=== PATIENT | male | born 1945 | race American Indian/Alaskan Native ===

== ENCOUNTER 2018-12-11 11:41 | Inpatient (IN) | payer MEDICARE, OTHER ==
--- NOTE | 2018-12-11 12:29 | C.PDOC ---
History Of Present Illness The patient is a 73 year old male with history of chronic bilateral leg ulcers and ESRD (on dialysis). Patient underwent outpatient evaluation by Dr. Langford, who found that patient's wound are not healing. Patient was sent to the ED for further evaluation. Patient denies fever, chills, extremity numbness/weakness or recent trauma/injury to the area. Time Seen by Provider: 12/11/18 11:59 Chief Complaint (Nursing): Lower Extremity Problem/Injury History Per: Patient History/Exam Limitations: no limitations Onset/Duration Of Symptoms: Days Current Symptoms Are (Timing): Still Present Additional History Per: Patient Past Medical History Reviewed: Historical Data, Nursing Documentation, Vital Signs Vital Signs: Last Vital Signs Temp 97.7 F 12/11/18 11:53 Pulse 81 12/11/18 11:53 Resp 18 12/11/18 11:53 BP 133/90 12/11/18 11:53 Pulse Ox 96 12/11/18 11:53 - Medical History PMH: CHF, HTN, End Stage Renal Disease, Chronic Kidney Disease Surgical History: No Surg Hx Family History: States: Unknown Family Hx - Social History Hx Alcohol Use: No Hx Substance Use: No - Immunization History Hx Tetanus Toxoid Vaccination: No Hx Influenza Vaccination: Yes Hx Pneumococcal Vaccination: Yes Review Of Systems Constitutional: Negative for: Fever, Chills Skin: Positive for: Other (chronic leg wounds, non-healing ) Physical Exam - Physical Exam Appears: Non-toxic, No Acute Distress Skin: Warm, Dry, Other (areas of discoloration with multiple open ulcers to bilateral lower extremities. no discharge ) Head: Atraumatic, Normacephalic Eye(s): bilateral: Normal Inspection Neck: Supple Chest: Symmetrical, No Deformity, No Tenderness Cardiovascular: Rhythm Regular, No Murmur Respiratory: Normal Breath Sounds, No Rales, No Rhonchi, No Wheezing Extremity: Normal ROM, No Tenderness, No Deformity, Other (poor circulation to bilateral lower extremities ) Pulses: Left Dorsalis Pedis: Decreased, Right Dorsalis Pedis: Decreased Neurological/Psych: Oriented x3, Normal Speech, Normal Cognition ED Course And Treatment - Laboratory Results Result Diagrams: 12/11/18 12:45 12/11/18 12:19 O2 Sat by Pulse Oximetry: 96 (on RA ) Pulse Ox Interpretation: Normal Progress Note: Bloodwork ordered and reviewed. Case discussed with Dr. Langford, who requests to order an angiogram. CT Angiography ordered, and was reviewed by Dr. Langford. He requests for the patient to be admitted. Case discussed with Dr. Staton, who accepts the patient to his service. Disposition - Disposition Disposition: HOSPITALIZED Disposition Time: 15:52 Condition: FAIR - Clinical Impression Clinical Impression: Wound of lower extremity, ESRD (end stage renal disease) on dialysis - PA / DIRECTOR OF ASSESSMENT / Resident Statement MD/DO has reviewed & agrees with the documentation as recorded. - Scribe Statement The provider has reviewed the documentation as recorded by the Scribe (Ruby Palafox) All medical record entries made by the Scribe were at my direction and personally dictated by me. I have reviewed the chart and agree that the record accurately reflects my personal performance of the history, physical exam, medical decision making, and the department course for this patient. I have also personally directed, reviewed, and agree with the discharge instructions and disposition. Decision To Admit - Pt Status Changed To: Hospital Disposition Of: Observation - . Bed Request Type: Regular Admitting Physician: Luis Manuel Staton Patient Diagnosis: Wound of lower extremity, ESRD (end stage renal disease) on dialysis
[2018-12-11 13:01] LABS: INR 1.9; PROTHROMBIN TIME 20.5 SECONDS (9.7-12.2)
[2018-12-11 13:12] LABS: BASO # 0.1 K/uL (0.0-0.2); BASO % 1.5 % (0.0-2.0); EOS # 0.2 K/uL (0.0-0.7); HEMOGLOBIN 12.3 g/dL (12.0-18.0); LYMPH # 0.4 K/uL (1.0-4.3); LYMPH % 4.7 % (20.0-40.0); MEAN CELL VOLUME 90.3 fL (80.0-94.0); MEAN CORPUSCULAR HEMOGLOBIN 26.7 pg (27.0-31.0); MEAN CORPUSCULAR HGB CONC 29.6 g/dL (33.0-37.0); MEAN PLATELET VOLUME 7.8 fL (7.2-11.7); MONO # 0.5 K/uL (0.0-0.8); NEUT # 7.6 K/uL (1.8-7.0); NEUT % 85.8 % (50.0-75.0); NRBC % 0.1 % (0.0-2.0); PLATELET COUNT 397 K/uL (130-400); RBC 4.62 Mil/uL (4.40-5.90); WHITE BLOOD COUNT 8.9 K/uL (4.8-10.8)
[2018-12-11 13:17] LABS: BASOPHIL 1 % (0-2); EOSINOPHIL 5 % (0-4); LYMPHOCYTE 6 % (20-40); MONOCYTE 8 % (0-10); NEUTROPHIL 80 % (50-75); PLATELET ESTIMATE NORMAL (NORMAL); TOTAL CELLS COUNTED 100
[2018-12-11 13:18] LABS: ANISOCYTOSIS SLIGHT; POIKILOCYTOSIS SLIGHT
[2018-12-11 13:38] LABS: CALCIUM 8.9 mg/dl (8.6-10.4)
[2018-12-11 13:46] LABS: ALB/GLOB RATIO 1.5 (1.0-2.1); ALBUMIN 4.7 g/dL (3.5-5.0)
[2018-12-11] MEDS ORDERED: Iodixanol 320 mg/ml 150 ml Bottle IV ONE (14:31)
--- NOTE | 2018-12-11 16:31 | CP.PCM.CON ---
History of Present Illness - History of Present Illness History of Present Illness: pt is seen and examined, full consult is dictated #[id number] 1. ESRD 2. cardiomyopathy 3. htn 4.dm 5.s/p A fib 6.cad s/p stent and defibrillator 7. b/l leg ulcers, left is almost closed, rt leg 2 ulcers with unhealthy granulation tissue s/p angiogram for hd today for possible oR tomorrow c/w po4 binders restrict fluids to 1 lit/day f/u with suegery Past Patient History - Past Social History Smoking Status: Never Smoked - CARDIAC Hx Congestive Heart Failure: Yes Hx Hypertension: Yes - RENAL Hx Chronic Kidney Disease: Yes - PSYCHIATRIC Hx Substance Use: No - SURGICAL HISTORY Hx Surgeries: Yes Other/Comment: LEFT ARM AV SHUNT. ICD INSERTED Meds Allergies/Adverse Reactions: Allergies Allergy/AdvReac Type Severity Reaction Status Date / Time No Known Allergies Allergy Verified 12/11/18 11:46 - Medications Medications: Current Medications Paricalcitol (Zemplar) 2 mcg IV TTS YESI Results - Vital Signs Recent Vital Signs: Last Vital Signs Temp 98.6 F 12/11/18 13:52 Pulse 79 12/11/18 13:52 Resp 18 12/11/18 11:53 BP 121/70 12/11/18 13:52 Pulse Ox 96 12/11/18 15:54 - Labs Result Diagrams: 12/11/18 12:45 12/11/18 12:19 Labs: Laboratory Results - last 24 hr 12/11/18 12/11/18 12/11/18 12:19 12:45 12:54 WBC 8.9 RBC 4.62 Hgb 12.3 Hct 41.7 MCV 90.3 MCH 26.7 L MCHC 29.6 L RDW 24.0 H Plt Count 397 MPV 7.8 Neut % (Auto) 85.8 H Lymph % (Auto) 4.7 L [place] % (Auto) 6.0 Eos % (Auto) 2.0 Baso % (Auto) 1.5 Neut # (Auto) 7.6 H Lymph # (Auto) 0.4 L [place] # (Auto) 0.5 Eos # (Auto) 0.2 Baso # (Auto) 0.1 Neutrophils % (Manual) 80 H Lymphocytes % (Manual) 6 L Monocytes % (Manual) 8 Eosinophils % (Manual) 5 H Basophils % (Manual) 1 Platelet Estimate Normal Poikilocytosis (manual Slight Anisocytosis (manual) Slight PT 20.5 H INR 1.9 APTT 41 H Sodium 135 Potassium 5.7 H Chloride 93 L Carbon Dioxide 29 Anion Gap 18 BUN 51 H Creatinine 5.0 H Est GFR ( Amer) 14 Est GFR (Non-Af Amer) 11 Random Glucose 158 H Calcium 8.9 Total Bilirubin 1.4 H AST 63 H ALT 11 L Alkaline Phosphatase 116 Total Protein 7.8 Albumin 4.7 Globulin 3.1 Albumin/Globulin Ratio 1.5
[2018-12-11] MEDS: Paricalcitol 2 mcg/ml Inj IV SCH (18:48)
--- NOTE | 2018-12-11 19:20 | CP.PCM.HP ---
History of Present Illness - History of Present Illness History of Present Illness: Chief complaint: Bilateral leg pain, and chronic ulcers. HPI: 73-year-old male with a history of end-stage renal disease, on dialysis hypertension, congestive heart failure, peripheral vascular disease, ischemic heart disease was sent from the rehabilitation center with the symptoms of worsening leg pain, discoloration of the great toes bilaterally. Patient is having increasing pain recently. Chronic ulcers and also noted. Patient needed further management and treatment at this time. Patient was seen by surgeon as an outpatient, and as the wound is not healing with the conservative treatment patient needed hospitalization and further management Past medical history: Chronic renal failure, end-stage renal disease on dialysis hypertension, congestive heart failure Surgical history: Left arm AV fistula Family history significant for hypertension and heart disease Patient is a nonalcoholic and non-smoker now. Vaccination is updated Review of system: Patient is currently receiving the dialysis. Patient has swelling over the left upper extremity. AV fistula in the left arm noted. Patient has no chest pain he denies any nausea he denies any vomiting he denies abdominal pain Patient has a pain bilaterally in the legs. Also patient has a discoloration of the great toes bilaterally On examination: Vital signs reviewed Stable. Saturation 96%. Chest good air entry bilaterally, regular sounds noted, nontender abdomen. Extremities patient has a poor peripheral pulses noted. Discoloration of the skin changes dark discoloration noted in the tip of the great toe bilaterally. Labs reviewed BUN 51 creatinine 5.0, bilirubin is 1.4 mild elevation of the AST noted INR is 1.9 WBC 8.9 Hemoglobin 12.3 Platelet is 397 patient had abdominal angiogram results are pending. EKG also pending at this time CT of the abdominal angiogram is currently pending with results. Assessment and recommendation: Patient is a 73-year-old male with history of hypertension, atherosclerotic aortic disease, renal insufficiency, end-stage renal disease on dialysis, congestive heart failure, status post pacemaker. Patient now admitted with a nonhealing leg ulcers, associated with severe vascular claudication with the severe pain with impending gangrene. We will get a vascular surgical evaluation. CT angiogram report. Possible angiographic intervention, or PTCA possibly. Evaluation by the surgeon and will follow the patient. DVT GI prophylaxis currently patient is on anticoagulation. Cardiology evaluation may be needed and will follow the patient Present on Admission - Present on Admission Any Indicators Present on Admission: No History of DVT/PE: No History of Uncontrolled Diabetes: No Urinary Catheter: No Decubitus Ulcer Present: No Past Patient History - Past Social History Smoking Status: Never Smoked - CARDIAC Hx Congestive Heart Failure: Yes Hx Hypertension: Yes - RENAL Hx Chronic Kidney Disease: Yes - PSYCHIATRIC Hx Substance Use: No - SURGICAL HISTORY Hx Surgeries: Yes Other/Comment: LEFT ARM AV SHUNT. ICD INSERTED Meds Allergies/Adverse Reactions: Allergies Allergy/AdvReac Type Severity Reaction Status Date / Time No Known Allergies Allergy Verified 12/11/18 11:46 Results - Vital Signs Recent Vital Signs: Last Vital Signs Temp 97.4 F L 12/11/18 17:30 Pulse 87 12/11/18 18:31 Resp 17 12/11/18 18:31 BP 122/62 12/11/18 18:45 Pulse Ox 96 12/11/18 18:10 - Labs Result Diagrams: 12/11/18 12:45 12/11/18 12:19 Labs: Laboratory Results - last 24 hr 12/11/18 12/11/18 12/11/18 12:19 12:45 12:54 WBC 8.9 RBC 4.62 Hgb 12.3 Hct 41.7 MCV 90.3 MCH 26.7 L MCHC 29.6 L RDW 24.0 H Plt Count 397 MPV 7.8 Neut % (Auto) 85.8 H Lymph % (Auto) 4.7 L [place] % (Auto) 6.0 Eos % (Auto) 2.0 Baso % (Auto) 1.5 Neut # (Auto) 7.6 H Lymph # (Auto) 0.4 L [place] # (Auto) 0.5 Eos # (Auto) 0.2 Baso # (Auto) 0.1 Neutrophils % (Manual) 80 H Lymphocytes % (Manual) 6 L Monocytes % (Manual) 8 Eosinophils % (Manual) 5 H Basophils % (Manual) 1 Platelet Estimate Normal Poikilocytosis (manual Slight Anisocytosis (manual) Slight PT 20.5 H INR 1.9 APTT 41 H Sodium 135 Potassium 5.7 H Chloride 93 L Carbon Dioxide 29 Anion Gap 18 BUN 51 H Creatinine 5.0 H Est GFR ( Amer) 14 Est GFR (Non-Af Amer) 11 Random Glucose 158 H Calcium 8.9 Total Bilirubin 1.4 H AST 63 H ALT 11 L Alkaline Phosphatase 116 Total Protein 7.8 Albumin 4.7 Globulin 3.1 Albumin/Globulin Ratio 1.5
--- NOTE | 2018-12-11 21:54 | CP.PCM.CON ---
History of Present Illness - History of Present Illness History of Present Illness: Vascular Surgery Dr. Langford 73 y/o M w/ PMHx of ESRD on HD, HTN, CHF, PVD, CAD was BIBA from rehab center for worsening leg pain. Pt has B/L LE chronic wounds that failed outpaitnet therapy. Pt was directed to the ED for admission and more aggressive therapy. Currently, pt denies LE pain, though does state that it's intermittent. Pt also denies F/C, CP, SOB, N/V, D/C. PMHx: see above Meds: reviewed in chart NKDA PSHx: L AVF SHx: former tobacco, denies EtOH, drug use FHx: noncontributory Review of Systems - Review of Systems All systems: reviewed and no additional remarkable complaints except (see HPI) Past Patient History - Past Social History Smoking Status: Never Smoked - CARDIAC Hx Congestive Heart Failure: Yes Hx Hypertension: Yes - RENAL Hx Chronic Kidney Disease: Yes - PSYCHIATRIC Hx Substance Use: No - SURGICAL HISTORY Hx Surgeries: Yes Other/Comment: LEFT ARM AV SHUNT. ICD INSERTED Meds Allergies/Adverse Reactions: Allergies Allergy/AdvReac Type Severity Reaction Status Date / Time No Known Allergies Allergy Verified 12/11/18 11:46 - Medications Medications: Current Medications Acetaminophen (Tylenol 325mg Tab) 325 mg PO Q6 PRN PRN Reason: Pain, moderate (4-7) Apixaban (Eliquis) 5 mg PO BID YESI Calcium Acetate (Phoslo) 667 mg PO TID YESI Carvedilol (Coreg) 3.125 mg PO PRN PRN PRN Reason: see below Cinacalcet (Sensipar) 60 mg PO DAILY YESI Clopidogrel Bisulfate (Plavix) 75 mg PO DAILY YESI Finasteride (Proscar) 5 mg PO DAILY YESI Gabapentin (Neurontin) 300 mg PO TID YESI Lactulose (Enulose) 20 gm PO DAILY YESI Paricalcitol (Zemplar) 2 mcg IV TTS YESI Last Admin: 12/11/18 18:48 Dose: 2 mcg Tramadol HCl (Ultram) 50 mg PO Q8H YESI Last Admin: 12/11/18 20:13 Dose: Not Given Vitamin B Complex/Vit C/Folic Acid (Nephro-Vivian) 1 tab PO DAILY [facility] Physical Exam - Constitutional Appears: Non-toxic, Toxic - Head Exam Head Exam: NORMAL INSPECTION - Eye Exam Eye Exam: Normal appearance - ENT Exam ENT Exam: Mucous Membranes Moist - Respiratory Exam Respiratory Exam: NORMAL BREATHING PATTERN. absent: Accessory Muscle Use, Respiratory Distress - Cardiovascular Exam Cardiovascular Exam: REGULAR RHYTHM. absent: Bradycardia, Tachycardia - GI/Abdominal Exam GI & Abdominal Exam: Soft. absent: Distended, Tenderness - Extremities Exam Additional comments: dark discoloration to B/L [place] chronic R heel wound pitting edema B/L LE to mid-linares - Neurological Exam Neurological exam: Alert - Psychiatric Exam Psychiatric exam: Normal Affect, Normal Mood - Skin Skin Exam: Dry, Warm Results - Vital Signs Recent Vital Signs: Last Vital Signs Temp 97.8 F 12/11/18 20:30 Pulse 79 12/11/18 20:30 Resp 19 12/11/18 20:30 BP 140/74 12/11/18 20:30 Pulse Ox 97 12/11/18 20:30 - Labs Result Diagrams: 12/11/18 12:45 12/11/18 12:19 Labs: Laboratory Results - last 24 hr 12/11/18 12/11/18 12/11/18 12:19 12:45 12:54 WBC 8.9 RBC 4.62 Hgb 12.3 Hct 41.7 MCV 90.3 MCH 26.7 L MCHC 29.6 L RDW 24.0 H Plt Count 397 MPV 7.8 Neut % (Auto) 85.8 H Lymph % (Auto) 4.7 L [place] % (Auto) 6.0 Eos % (Auto) 2.0 Baso % (Auto) 1.5 Neut # (Auto) 7.6 H Lymph # (Auto) 0.4 L [place] # (Auto) 0.5 Eos # (Auto) 0.2 Baso # (Auto) 0.1 Neutrophils % (Manual) 80 H Lymphocytes % (Manual) 6 L Monocytes % (Manual) 8 Eosinophils % (Manual) 5 H Basophils % (Manual) 1 Platelet Estimate Normal Poikilocytosis (manual Slight Anisocytosis (manual) Slight PT 20.5 H INR 1.9 APTT 41 H Sodium 135 Potassium 5.7 H Chloride 93 L Carbon Dioxide 29 Anion Gap 18 BUN 51 H Creatinine 5.0 H Est GFR ( Amer) 14 Est GFR (Non-Af Amer) 11 POC Glucose (mg/dL) Random Glucose 158 H Calcium 8.9 Total Bilirubin 1.4 H AST 63 H ALT 11 L Alkaline Phosphatase 116 Total Protein 7.8 Albumin 4.7 Globulin 3.1 Albumin/Globulin Ratio 1.5 12/11/18 21:38 WBC RBC Hgb Hct MCV MCH MCHC RDW Plt Count MPV Neut % (Auto) Lymph % (Auto) [place] % (Auto) Eos % (Auto) Baso % (Auto) Neut # (Auto) Lymph # (Auto) [place] # (Auto) Eos # (Auto) Baso # (Auto) Neutrophils % (Manual) Lymphocytes % (Manual) Monocytes % (Manual) Eosinophils % (Manual) Basophils % (Manual) Platelet Estimate Poikilocytosis (manual Anisocytosis (manual) PT INR APTT Sodium Potassium Chloride Carbon Dioxide Anion Gap BUN Creatinine Est GFR ( Amer) Est GFR (Non-Af Amer) POC Glucose (mg/dL) 189 H Random Glucose Calcium Total Bilirubin AST ALT Alkaline Phosphatase Total Protein Albumin Globulin Albumin/Globulin Ratio - Imaging and Cardiology CTA scan - abdomen Status: Image reviewed by me Assessment & Plan - Assessment and Plan (Free Text) Assessment: 73 y/o M w/ PVD and chronic B/L foot wounds Plan: - MUST HAVE HD TONIGHT 12/11 - optimize medically - plan for OR tomorrow 12/12 for wound debridement Pt discussed w/ Dr. Primitivo Boland DO PGY3
--- NOTE | 2018-12-12 04:35 | CON ---
DATE: 12/11/2018 RENAL CONSULTATION LOCATION: The patient is located in room 356, bed A. REQUESTED BY: Luis Manuel Staton MD REASON FOR CONSULTATION: End-stage renal disease, continuation of hemodialysis, status post abdominal angiography, and for possible debridement of the right leg ulcer in a.m. and for possible hemodialysis today. HISTORY OF PRESENT ILLNESS: Mr. Pandey is a 73-year-old elderly very pleasant male with a past medical history significant for longstanding hypertension, diabetes, secondary hyperparathyroidism, end-stage renal disease, coronary artery disease, status post stent placement, status post AICD and defibrillator placement, cardiomyopathy, AFib, was on anticoagulation who [facility] for [facility] of nonhealing left leg ulcer, just above the ankle. The patient denies any chest pain or palpitation. Denies any fever or cough. No abdominal pain. The patient was recently admitted to [facility] and discharged from the [facility] to subacute rehab. The patient was dialyzed yesterday in [facility]. PAST MEDICAL HISTORY: Significant for longstanding hypertension, diabetes, secondary hyperparathyroidism, end-stage renal disease, cardiomyopathy, AFib, and also status post AICD defibrillator placement, CAD, status post stent placement. PAST SURGICAL HISTORY Status post ligation of the left upper extremity AV fistula, status post new left upper extremity AV fistula placement about 6 months ago. ALLERGIES: NO KNOWN DRUG ALLERGIES. SOCIAL HISTORY: No smoking. No alcohol. No drugs. PERSONAL HISTORY: He is , and he has a very supportive family. His son of end-stage renal disease and complications. REVIEW OF SYSTEMS: Significant for nonhealing right leg ulcers, just above the ankle, and also swelling of the legs. All other review of systems are reviewed and are negative. PHYSICAL EXAMINATION: VITAL SIGNS: Blood pressure 136/76, pulse 79, respirations 19, temperature 97.8, saturation about 98% to 100%. Height 5 feet 9 inches and weight is 187 pounds. His post dialysis actual weight is 136.8. GENERAL: Mr. Pandey is a 73-year-old elderly male, moderately built, moderately nourished, not in distress. HEENT: Pupils normal and reactive to light and accommodation. Conjunctivae pink. Sclerae anicteric. Tongue is moist. Trachea is midline. LUNGS: Symmetric on both sides. Bilateral breath sounds present. Occasional basal crackles present. CARDIOVASCULAR SYSTEM: [place] at the fifth intercostal space, midclavicular line. S1, S2 audible. No murmur or gallop. ABDOMEN: Normal in appearance. Soft, tympanitic. No guarding. No rigidity. No hepatosplenomegaly. CENTRAL NERVOUS SYSTEM: The patient is alert, awake, and oriented x3. Cranial nerves II through XII grossly intact. Sensory system is grossly within the normal limits. Motor system, the patient is able to move all extremities but unable to ambulate due to weakness in both lower extremities and dyspnea on exertion, and nonhealing right leg ulcers. EXTREMITIES: No cyanosis, no clubbing. The patient has 1 to 2+ edema in both lower extremities and also nonhealing two ulcers above the ankle on the Achilles tendon. Ulcers on the left leg was healing. No active drainage. LABORATORY DATA: Include as follows: As of 12/11/2018, WBC 8.9, hemoglobin 12.3, hematocrit 41.7, platelets 397. Sodium 135, potassium 5.7, chloride 93, CO2 of 29, BUN 51, creatinine 5, glucose 158, calcium 8.9. Total bili 1.4. AST 63, ALT 11, alkaline phosphatase 116, total protein 7.8, albumin is 4.7, PT is 20.5, INR 1.9, PTT 41. IMPRESSION AND PLAN: In summary, Mr. Pandey is a 73-year-old elderly male with a history of longstanding hypertension, diabetes, end-stage renal disease, secondary hyperparathyroidism, coronary artery disease, hyperlipidemia, atrial fibrillation, cardiomyopathy, status post stent placement, status post automatic implantable cardioverter-defibrillator placement who was recently admitted to [facility], subsequently transferred to subacute rehab for nonhealing right leg ulcer. Now the patient was [facility] for further evaluation. The patient underwent abdominal angiography this afternoon and requesting hemodialysis today for possible surgery tomorrow and debridement. 1. End-stage renal disease. Continue hemodialysis three times a week. 2. Cardiomyopathy. 3. Fluid overload. 4. Mild hyperkalemia. The specimen was slightly hemolyzed. 5. Second hyperparathyroidism. 6. Diabetes. Continue his current medications Coreg 3.125 mg p.r.n. and Eliquis on hold, lactulose 20 g p.o. daily, Nephro-Vivian 1 tablet daily, gabapentin 300 mg p.o. t.i.d., PhosLo 667 mg p.o. t.i.d., Plavix 75 mg daily, Proscar 5 mg p.o. daily, Sensipar 60 mg p.o. daily, Tylenol and tramadol 50 mg p.o. every 8 hours, Zemplar 2 mcg. We will change PhosLo to Renvela 800 mg two tablets three times a day. The patient was scheduled for hemodialysis this evening and UF goal is 2 to 3 liters, and repeat labs in a.m. Thank you for allowing me to participate in your patient's care and restrict fluids to 1 liter per day and also low sodium, low potassium diet. Gomez Vu MD
[2018-12-12 07:41] LABS: CALCIUM 8.6 mg/dl (8.6-10.4); MEAN CELL VOLUME 88.7 fL (80.0-94.0); MEAN CORPUSCULAR HEMOGLOBIN 27.4 pg (27.0-31.0); MEAN CORPUSCULAR HGB CONC 30.9 g/dL (33.0-37.0); MEAN PLATELET VOLUME 7.5 fL (7.2-11.7); RBC 3.71 Mil/uL (4.40-5.90); RED CELL DISTRIBUTION WIDTH 23.9 % (11.5-14.5); WHITE BLOOD COUNT 6.2 K/uL (4.8-10.8)
[2018-12-12 07:51] LABS: HEMOGLOBIN 10.2 g/dL (12.0-18.0)
--- NOTE | 2018-12-12 08:44 | CT ---
Date of service: 12/11/2018 PROCEDURE: CT Angiography Abdomen, Pelvis and Lower Extremity with Contrast HISTORY: b/l LE ulcers, on HD COMPARISON: None. TECHNIQUE: Technique: CT angiography of the abdomen, pelvis and bilateral lower extremities performed in the arterial phase of enhancement. Coronal and sagittal reformats, and well as rotating MIP images of the vessels generated at the workstation. Intravenous contrast dose: Radiation dose: Total exam DLP = 1825.72 mGy-cm. This CT exam was performed using one or more of the following dose reduction techniques: Automated exposure control, adjustment of the mA and/or kV according to patient size, and/or use of iterative reconstruction technique. FINDINGS: CT ANGIOGRAPHY: No aortic atherosclerotic calcification or mural plaque present. ABDOMINAL AORTA:: No aneurysm. Extensive atherosclerotic change. MAJOR AORTIC BRANCHES: Celiac [place]: Unremarkable. Superior mesenteric artery: Unremarkable. Inferior mesenteric artery: Unremarkable. Renal arteries: Unremarkable. PELVIC ARTERIES: Right Common Iliac: Unremarkable. Right External Iliac: Unremarkable. Right Internal Iliac: Unremarkable. Left Common Iliac: Unremarkable. Left External Iliac: Unremarkable. Left Internal Iliac: Unremarkable. RIGHT LOWER EXTREMITY ARTERIES: Right Common Femoral: Unremarkable. Right Superficial Femoral: Unremarkable. Right Profunda Femoris: Unremarkable. Right Popliteal:Unremarkable. Right Anterior Tibial: Unremarkable. Right Tibioperoneal Trunk: Unremarkable. Right Posterior Tibial: Unremarkable. Right Peroneal: Unremarkable. Right dorsalis pedis : Unremarkable. LEFT LOWER EXTREMITY ARTERIES: Left Common Femoral: Unremarkable. Left Superficial Femoral: Unremarkable. Left Profunda Femoris: Unremarkable. Left Popliteal: Unremarkable. Left Anterior Tibial: Unremarkable. Left Tibioperoneal Trunk: Unremarkable. Left Posterior Tibial: Unremarkable. Left Peronea: Unremarkable. Left Dorsalis pedis: Unremarkable. Bilateral subcutaneous interstitial edema in the calf regions. 2 centimeter subcutaneous ulceration with abscess formation in the posterior medial right foot superior to the calcaneus. NON-ANGIOGRAPHIC ASPECT OF THE EXAM: LOWER THORAX: Cardiomegaly. Bilateral interstitial changes. LIVER: Unremarkable. No gross lesion or ductal dilatation. GALLBLADDER AND BILE DUCTS: Unremarkable. PANCREAS: Unremarkable. No gross lesion or ductal dilatation. SPLEEN: Unremarkable. ADRENALS: Bilateral adrenal nodule; correlate with gradient echo MRI to confirm these as adenomas. KIDNEYS AND URETERS: Severe multicystic kidney disease. STOMACH AND BOWEL: Unremarkable. No obstruction. No gross mural thickening. APPENDIX: Normal appendix. PERITONEUM: Unremarkable. No free fluid. No free air. LYMPH NODES: Unremarkable. No enlarged lymph nodes. BLADDER: Unremarkable. REPRODUCTIVE: Unremarkable. BONES: No acute fracture. OTHER FINDINGS: None. IMPRESSION: Bilateral subcutaneous interstitial edema in the calf regions. 2 centimeter subcutaneous ulceration with abscess formation in the posterior medial right foot superior to the calcaneus. No significant stenosis. Extensive atherosclerotic disease. No aortic aneurysm or dissection.
[2018-12-12] MEDS: Multivitamin Vitamin B Complex (Nephro-Vite) Tab PO SCH (09:32)
[2018-12-12] MEDS ORDERED: Etomidate 20 mg/10ml Inj IV ONE (14:52)
[2018-12-12] MEDS ORDERED: Midazolam 2 MG/2 ML VIAL ONE (14:53)
[2018-12-12] MEDS ORDERED: ceFAZolin 1 gm in NS 1 GM/100 ML BAG IVPB ONE (15:05)
[2018-12-12] MEDS ORDERED: Neostigmine 1:1000 (1 mg/ml) Inj ONE (15:26)
[2018-12-12] MEDS ORDERED: Sodium Chloride 0.9% 500 ML IV ONE (15:35)
--- NOTE | 2018-12-12 15:40 | PCM.SURG1 ---
Surgeon's Initial Post Op Note - Surgeon's Notes Surgeon: MD Primitivo Silver Service Waiter: [id number] Pre-Operative Diagnosis: bilateral lower leg wounds Operative Findings: bilateral lower leg wounds Post-Operative Diagnosis: bilateral lower leg wounds Operation Performed: debridement of bilateral lower leg skin, subcutaneous tissue and muscle Specimen/Specimens Removed: bilateral lower leg wounds Estimated Blood Loss: EBL {In ML}: 25 Date of Surgery/Procedure: 12/12/18 Time of Surgery/Procedure: 15:00
[2018-12-12] MEDS ORDERED: Sodium Chloride 0.9% 1,000 ML IV SCH (15:45)
--- NOTE | 2018-12-12 20:08 | CP.PCM.PN ---
Subjective - Date & Time of Evaluation Date of Evaluation: 12/12/18 Time of Evaluation: 20:08 - Subjective Subjective: pt is seen and examined, follow up consult is dictated #[id number] for hd in am Objective - Vital Signs/Intake and Output Vital Signs (last 24 hours): Temp Pulse Resp BP Pulse Ox 97.8 F 76 11 L 110/52 L 95 12/12/18 16:35 12/12/18 16:35 12/12/18 16:35 12/12/18 16:35 12/12/18 16:35 Intake and Output: 12/12/18 12/13/18 18:59 06:59 Intake Total 200 Balance 200 - Medications Medications: Current Medications Acetaminophen (Tylenol 325mg Tab) 325 mg PO Q6 PRN PRN Reason: Pain, moderate (4-7) Apixaban (Eliquis) 5 mg PO BID [facility] Calcium Acetate (Phoslo) 667 mg PO TID [facility] Last Admin: 12/12/18 17:29 Dose: 667 mg Carvedilol (Coreg) 3.125 mg PO PRN PRN PRN Reason: see below Last Admin: 12/12/18 09:33 Dose: 3.125 mg Cinacalcet (Sensipar) 60 mg PO DAILY [facility] Last Admin: 12/12/18 09:32 Dose: 60 mg Clopidogrel Bisulfate (Plavix) 75 mg PO DAILY [facility] Last Admin: 12/12/18 09:32 Dose: 75 mg Finasteride (Proscar) 5 mg PO DAILY [facility] Last Admin: 12/12/18 09:33 Dose: 5 mg Gabapentin (Neurontin) 300 mg PO TID [facility] Last Admin: 12/12/18 17:29 Dose: 300 mg Sodium Chloride (Sodium Chloride 0.9%) 1,000 mls @ 50 mls/hr IV .Q20H [facility] Last Admin: 12/12/18 17:00 Dose: Not Given Lactulose (Enulose) 20 gm PO DAILY [facility] Last Admin: 12/12/18 09:35 Dose: Not Given Paricalcitol (Zemplar) 2 mcg IV TTS [facility] Last Admin: 12/11/18 18:48 Dose: 2 mcg Tramadol HCl (Ultram) 50 mg PO Q8H [facility] Last Admin: 12/12/18 20:03 Dose: Not Given Vitamin B Complex/Vit C/Folic Acid (Nephro-Vivian) 1 tab PO DAILY [facility] Last Admin: 12/12/18 09:32 Dose: 1 tab - Labs Labs: 12/12/18 07:15 12/12/18 07:15 PT 20.5 SECONDS (9.7-12.2) H 12/11/18 12:54 INR 1.9 12/11/18 12:54 APTT 41 SECONDS (21-34) H 12/11/18 12:54
--- NOTE | 2018-12-13 02:31 | PN ---
DATE: 12/12/2018 FOLLOWUP RENAL CONSULTATION LOCATION: The patient is located in [facility], room 356, bed A. REQUESTED BY: Luis Manuel Staton MD REASON FOR RENAL CONSULTATION: End-stage renal disease, on hemodialysis three times a week with bilateral leg ulcers. HISTORY OF PRESENT ILLNESS: Mr. Pandey is a 73-year-old elderly male with a past medical history significant for longstanding hypertension, diabetes, coronary artery disease, status post stent placement, status post AICD placement, and also end stage renal disease, on hemodialysis three times a week, Saturday, Saturday, and Saturday who was admitted with history of cardiomyopathy, AFib, and bilateral leg ulcer from [facility] to [facility]. From there, patient was sent to the [facility] ER for evaluation of the nonhealing leg ulcers. The patient underwent abdominal angiogram, and patient was scheduled for debridement of both lower extremity leg wounds. The patient underwent debridement of the bilateral lower leg skin and subcutaneous tissue and margin for bilateral lower leg wounds. This afternoon, the patient is awake, the patient is confused. The patient states he is looking for his keys to start his car on the bed. Denies any chest pain or palpitation. Denies any fever or cough. No abdominal pain. No nausea, vomiting, diarrhea. PHYSICAL EXAMINATION: VITAL SIGNS: As follows, blood pressure 110/52, pulse 76, respirations about 15, temperature 97.8, saturation 95%. Height 5 feet 9 inches, weight is about 68.4 kg post dialysis yesterday. GENERAL: Mr. Tyron Pandey is a 73-year-old elderly male, moderately built, moderately nourished, not in acute distress. HEENT: Pupils normal and reactive to light and accommodation. Conjunctivae pink. Sclerae anicteric. Tongue is moist. Trachea is midline. LUNGS: Symmetric on both sides. Bilateral breath sounds present. Occasional basal crackles present. CARDIOVASCULAR SYSTEM: [place] at the fifth intercostal space, midclavicular line. S1, S2 audible. No murmur or gallop. ABDOMEN: Slightly protuberant. Soft, tympanitic. No guarding. No rigidity. No hepatosplenomegaly. CENTRAL NERVOUS SYSTEM: The patient is awake, slightly confused after debridement of the leg ulcers. Sensory system is within normal limits. Motor system, moving all extremities. EXTREMITIES: No cyanosis, no clubbing. 1+ edema in both lower extremities, and the patient has a dressing to the both lower extremity, and both legs are also elevated with pressure support boots. CURRENT MEDICATIONS: Include as follows: Coreg 3.125 mg p.o. p.r.n., Eliquis was on hold, lactulose 20 g p.o. daily, Nephro-Vivian 1 tablet daily, gabapentin 300 mg p.o. t.i.d., calcium acetate 667 mg p.o. t.i.d., Plavix 75 mg daily, Proscar 5 mg p.o. daily, Sensipar 60 mg p.o. daily, Tylenol, tramadol, and Zemplar 2 mcg three times a week. LABORATORY DATA: Include as follows: As of 12/12/2018, WBC 6.2, hemoglobin 10.2, hematocrit is 32.9, platelets 338. Sodium 135, potassium 4.2, chloride 99, CO2 of 30, BUN 33, creatinine 3.9, glucose 120, calcium 8.6, phosphorus 3.6, magnesium 2.4. Right ankle wound cultures pending. CT angiogram of the abdomen, major aortic branches, celiac axis unremarkable. Superior mesenteric artery unremarkable. Inferior mesenteric artery unremarkable. Renal arteries unremarkable. Kidneys and ureters, severe multicystic kidney disease. Impression: Bilateral subcutaneous interstitial edema in the calf regions, 2 cm subcutaneous ulceration with abscess formation in the posterior medial right foot superior to the calcaneus. No significant stenosis. Extensive atherosclerotic disease. No aortic aneurysm or dissection. IMPRESSION AND PLAN: In summary, Mr. Pandey is a 73-year-old elderly male with history of longstanding hypertension, diabetes, atrial fibrillation, coronary artery disease, status post automatic implantable cardioverter-defibrillator and atrial fibrillation, end-stage renal disease with bilateral leg ulcer who was admitted with nonhealing, status post abdominal angiography, consistent with disease without blockage, status post debridement of the both leg ulcers. 1. End-stage renal disease. Continue hemodialysis. We will schedule for hemodialysis in a.m. this week [facility]. He will continue dialysis three times a week, Saturday, Saturday, and Saturday. 2. Hypertension. Blood pressure is stable. 3. Cardiomyopathy. 4. Bilateral leg ulcers. 5. Diabetes. Continue his current medications and also consider to decrease the Neurontin 200 mg three times a day due to end stage renal disease. Gomez Vu MD
--- NOTE | 2018-12-13 08:28 | CP.PCM.PN ---
Subjective - Date & Time of Evaluation Date of Evaluation: 12/13/18 Time of Evaluation: 08:26 - Subjective Subjective: Vascular surgery - Dr. Langford Pt seen and examined. No acute events overnight. Pt denies any pain at the surgical site b/l lower calves. He is tolerating breakfast and as per nurse plan is for return to rehab today after dialysis. No F/C, SOB/CP. Objective - Vital Signs/Intake and Output Vital Signs (last 24 hours): Temp Pulse Resp BP Pulse Ox 97.9 F 89 20 118/66 97 12/13/18 01:35 12/13/18 01:35 12/13/18 01:35 12/13/18 01:35 12/13/18 01:35 - Medications Medications: Current Medications Acetaminophen (Tylenol 325mg Tab) 325 mg PO Q6 PRN PRN Reason: Pain, moderate (4-7) Apixaban (Eliquis) 5 mg PO BID [facility] Calcium Acetate (Phoslo) 667 mg PO TID [facility] Last Admin: 12/12/18 17:29 Dose: 667 mg Carvedilol (Coreg) 3.125 mg PO PRN PRN PRN Reason: see below Last Admin: 12/12/18 09:33 Dose: 3.125 mg Cinacalcet (Sensipar) 60 mg PO DAILY [facility] Last Admin: 12/12/18 09:32 Dose: 60 mg Clopidogrel Bisulfate (Plavix) 75 mg PO DAILY [facility] Last Admin: 12/12/18 09:32 Dose: 75 mg Finasteride (Proscar) 5 mg PO DAILY [facility] Last Admin: 12/12/18 09:33 Dose: 5 mg Gabapentin (Neurontin) 300 mg PO TID [facility] Last Admin: 12/12/18 17:29 Dose: 300 mg Sodium Chloride (Sodium Chloride 0.9%) 1,000 mls @ 50 mls/hr IV .Q20H [facility] Last Admin: 12/12/18 17:00 Dose: Not Given Lactulose (Enulose) 20 gm PO DAILY [facility] Last Admin: 12/12/18 09:35 Dose: Not Given Paricalcitol (Zemplar) 2 mcg IV TTS [facility] Last Admin: 12/11/18 18:48 Dose: 2 mcg Tramadol HCl (Ultram) 50 mg PO Q8H [facility] Last Admin: 12/13/18 03:35 Dose: Not Given Vitamin B Complex/Vit C/Folic Acid (Nephro-Vivian) 1 tab PO DAILY [facility] Last Admin: 12/12/18 09:32 Dose: 1 tab - Labs Labs: 12/12/18 07:15 12/12/18 07:15 PT 20.5 SECONDS (9.7-12.2) H 12/11/18 12:54 INR 1.9 12/11/18 12:54 APTT 41 SECONDS (21-34) H 12/11/18 12:54 - Constitutional Appears: No Acute Distress - Head Exam Head Exam: ATRAUMATIC, NORMAL INSPECTION, NORMOCEPHALIC - Respiratory Exam Respiratory Exam: NORMAL BREATHING PATTERN - Cardiovascular Exam Cardiovascular Exam: REGULAR RHYTHM - Extremities Exam Additional comments: dressings over b/l lower calves c/d/i - Neurological Exam Neurological Exam: Alert, Oriented x3 - Psychiatric Exam Psychiatric exam: Normal Affect - Skin Skin Exam: Dry, Intact, Normal Color Assessment and Plan - Assessment and Plan (Free Text) Assessment: 73 yo M s/p debridement of b/l lower extremity wounds -Doing well post-op -Clear for D/C back to rehab -Dressings may be changed in 5 days, earlier if needed -F/U with Dr. Langford in ~2weeks Dw Dr Langford
[2018-12-13] MEDS: Paricalcitol 2 mcg/ml Inj IV SCH (10:58)
[2018-12-13] MEDS: Multivitamin Vitamin B Complex (Nephro-Vite) Tab PO SCH (13:22)
--- NOTE | 2018-12-13 15:27 | CP.PCM.PN ---
Subjective - Date & Time of Evaluation Date of Evaluation: 12/13/18 Time of Evaluation: 15:26 - Subjective Subjective: pt is seen and examined,f ollow up consult is dictated # s/p hd today, had a uf about 3.4 lit stable tx pt can go back to rehab is cleared by surgery c/w iv abx asper id Objective - Vital Signs/Intake and Output Vital Signs (last 24 hours): Temp Pulse Resp BP Pulse Ox 97.5 F L 91 H 18 148/79 97 12/13/18 13:31 12/13/18 13:31 12/13/18 13:31 12/13/18 13:31 12/13/18 13:31 Intake and Output: 12/13/18 12/13/18 06:59 18:59 Intake Total 350 Balance 350 - Medications Medications: Current Medications Acetaminophen (Tylenol 325mg Tab) 325 mg PO Q6 PRN PRN Reason: Pain, moderate (4-7) Apixaban (Eliquis) 5 mg PO BID [facility] Calcium Acetate (Phoslo) 667 mg PO TID [facility] Last Admin: 12/13/18 13:27 Dose: Not Given Carvedilol (Coreg) 3.125 mg PO PRN PRN PRN Reason: see below Last Admin: 12/12/18 09:33 Dose: 3.125 mg Cinacalcet (Sensipar) 60 mg PO DAILY [facility] Last Admin: 12/13/18 13:30 Dose: 60 mg Clopidogrel Bisulfate (Plavix) 75 mg PO DAILY [facility] Last Admin: 12/13/18 13:23 Dose: 75 mg Finasteride (Proscar) 5 mg PO DAILY [facility] Last Admin: 12/13/18 13:22 Dose: 5 mg Gabapentin (Neurontin) 300 mg PO TID [facility] Last Admin: 12/13/18 13:27 Dose: Not Given Sodium Chloride (Sodium Chloride 0.9%) 1,000 mls @ 50 mls/hr IV .Q20H [facility] Last Admin: 12/12/18 17:00 Dose: Not Given Cefepime HCl 1 gm/ Dextrose 50 mls @ 100 mls/hr IVPB Q24H [facility]; Protocol Lactulose (Enulose) 20 gm PO DAILY [facility] Last Admin: 12/13/18 13:23 Dose: 20 gm Paricalcitol (Zemplar) 2 mcg IV TTS [facility] Last Admin: 03/23/19 10:58 Dose: 2 mcg Tramadol HCl (Ultram) 50 mg PO Q8H [facility] Last Admin: 12/13/18 13:28 Dose: Not Given Vitamin B Complex/Vit C/Folic Acid (Nephro-Vivian) 1 tab PO DAILY [facility] Last Admin: 12/13/18 13:22 Dose: 1 tab - Labs Labs: 12/12/18 07:15 12/12/18 07:15 PT 20.5 SECONDS (9.7-12.2) H 12/11/18 12:54 INR 1.9 12/11/18 12:54 APTT 41 SECONDS (21-34) H 12/11/18 12:54
--- NOTE | 2018-12-13 16:17 | OP ---
PROCEDURE DATE: 12/12/2018 PREOPERATIVE DIAGNOSIS: Necrotic wounds of calf and heel. PROCEDURE CARRIED OUT: Debridement of bilateral calf and heel. SURGEON: Hammad Langford Jr., MD DIRECTOR OF SPA AND GUEST EXPERIENCE: Paco Rai MD ANESTHESIOLOGIST: Altagracia Woodruff CRNA INDICATIONS: The patient is a 73-year-old man, mostly in a wheelchair, on dialysis, palpable pulses in feet, relatively normal CAT scan, presenting with necrotic wounds, particularly on his right heel, Achilles tendon area. OPERATIVE FINDINGS: There was extensive necrosis which was debrided down to healthy tissue on both sides. This was debridement of skin, subcutaneous tissue, muscle on both sides with a total size of less than 100 sq cm. DESCRIPTION OF THE PROCEDURE: The patient was given general anesthesia. He was placed in a left lateral position. The wounds were clearly seen and photographed. The areas were then debrided away using sharp dissection. Pulse irrigation was then used. Cultures were taken really on, and the wounds were dressed. Blood loss was less than 25 mL. OPERATION CARRIED OUT: Debridement of skin, subcutaneous tissue, and muscle, both the right and left calves. Hammad Langford Jr., MD cc:
[2018-12-13] MEDS ORDERED: Cefepime 1 GM in Sodium Chloride 0.9% 50 ML IVPB ONE (17:00)
--- NOTE | 2018-12-13 21:28 | CP.PCM.CON ---
History of Present Illness - History of Present Illness History of Present Illness: INFECTIOUS DISEASE CONSULT; HPI; 73 y/o M w/ PMHx of ESRD on HD, HTN, CHF, PVD, CAD was BIBA from rehab center on 12/11/18 for worsening leg pain.\ Pt has B/L LE chronic wounds that failed outpaitnet therapy for more than a month. Pt was directed to the ED for admission and more aggressive therapy. Currently, pt denies LE pain, though does state that it's intermittent. Pt also denies F/C, CP, SOB, N/V, D/C. Patient status post debridement of the chronic ulcers on lower extremities today as per surgery. INFECTIOUS DISEASE CONSULT REQUESTED BY PMD CULTURES CAME BACK GRAM-NEGATIVE RODS. PT SEEN POST OP. TODAY ON MEDICAL FLOOR. B/L LE IN DRESSINGS. PATIENT DENIES ANY CHEST PAIN, SHORTNESS OF BREATH, COUGH. NO HISTORY OF NAUSEA OR VOMITING. PATIENT ABLE TO MOVE HIS LEGS. PMHx: ESRD ON HD TTS ( [facility] MWF ) LT AVF +VE BRUIT, LT NECK IJV CATHETHER IN PLACE , HAS AICD /PM RT UPPER CHEST, CAD HTN,PVD,CHF Meds: reviewed in chart NKDA PSHx: L AVF SHx: former tobacco, denies EtOH, drug use FHx: noncontributory ALLERGY ; NKA. Review of Systems - Constitutional Constitutional: absent: Chills - EENT Eyes: absent: Change in Vision Nose/Mouth/Throat: absent: Mouth Lesions - Cardiovascular Cardiovascular: absent: Chest Pain, Dyspnea, Pedal Edema - Respiratory Respiratory: absent: Cough - Gastrointestinal Gastrointestinal: absent: Abdominal Pain, Constipation, Diarrhea, Nausea, Vomiting - Genitourinary Additional comments: ON HD TTS S/P HD 12/13/18 - Musculoskeletal Musculoskeletal: As Per HPI - Integumentary Integumentary: Skin Ulcer (B/L LE NEAR ANKLES) - Hematologic/Lymphatic Hematologic: As Per HPI. absent: Easy Bleeding, Easy Bruising, Lymphadenopathy Past Patient History - Past Medical History & Family History Past Medical History?: Yes - Past Social History Smoking Status: Former Smoker - CARDIAC Hx Congestive Heart Failure: Yes Hx Hypertension: Yes - RENAL Hx Chronic Kidney Disease: Yes - MUSCULOSKELETAL/RHEUMATOLOGICAL Hx Falls: No - PSYCHIATRIC Hx Substance Use: No - SURGICAL HISTORY Hx Surgeries: Yes Other/Comment: LEFT ARM AV SHUNT. ICD INSERTED Meds Allergies/Adverse Reactions: Allergies Allergy/AdvReac Type Severity Reaction Status Date / Time No Known Allergies Allergy Verified 12/11/18 11:46 - Medications Medications: Current Medications Acetaminophen (Tylenol 325mg Tab) 325 mg PO Q6 PRN PRN Reason: Pain, moderate (4-7) Apixaban (Eliquis) 5 mg PO BID [facility] Calcium Acetate (Phoslo) 667 mg PO TID [facility] Last Admin: 12/13/18 17:34 Dose: 667 mg Carvedilol (Coreg) 3.125 mg PO PRN PRN PRN Reason: see below Last Admin: 12/12/18 09:33 Dose: 3.125 mg Cinacalcet (Sensipar) 60 mg PO DAILY [facility] Last Admin: 12/13/18 13:30 Dose: 60 mg Clopidogrel Bisulfate (Plavix) 75 mg PO DAILY [facility] Last Admin: 12/13/18 13:23 Dose: 75 mg Finasteride (Proscar) 5 mg PO DAILY [facility] Last Admin: 12/13/18 13:22 Dose: 5 mg Gabapentin (Neurontin) 300 mg PO TID [facility] Last Admin: 12/13/18 17:34 Dose: 300 mg Sodium Chloride (Sodium Chloride 0.9%) 1,000 mls @ 50 mls/hr IV .Q20H [facility] Last Admin: 12/12/18 17:00 Dose: Not Given Cefepime HCl 1 gm/ Dextrose 50 mls @ 100 mls/hr IVPB Q24H [facility]; Protocol Last Admin: 12/13/18 17:34 Dose: 100 mls/hr Lactulose (Enulose) 20 gm PO DAILY [facility] Last Admin: 12/13/18 13:23 Dose: 20 gm Paricalcitol (Zemplar) 2 mcg IV TTS [facility] Last Admin: 12/13/18 10:58 Dose: 2 mcg Tramadol HCl (Ultram) 50 mg PO Q8H [facility] Last Admin: 12/13/18 18:39 Dose: Not Given Vitamin B Complex/Vit C/Folic Acid (Nephro-Vivian) 1 tab PO DAILY [facility] Last Admin: 12/13/18 13:22 Dose: 1 tab Physical Exam - Constitutional Appears: No Acute Distress - Head Exam Head Exam: NORMAL INSPECTION - Eye Exam Eye Exam: EOMI, PERRL - ENT Exam ENT Exam: Normal Oropharynx - Neck Exam Neck exam: Positive for: Normal Inspection - Respiratory Exam Respiratory Exam: Clear to Auscultation Bilateral, NORMAL BREATHING PATTERN - Cardiovascular Exam Cardiovascular Exam: REGULAR RHYTHM, +S1, +S2 - GI/Abdominal Exam GI & Abdominal Exam: Normal Bowel Sounds, Soft. absent: Tenderness - Extremities Exam Extremities exam: Negative for: calf tenderness, pedal edema (B/L LE IN DRESSINGS AND SOFT ELASTIC BANDAGES) - Neurological Exam Neurological exam: Alert, CN II-XII Intact, Oriented x3, Reflexes Normal - Psychiatric Exam Psychiatric exam: Normal Mood - Skin Skin Exam: Normal Color, Warm Results - Vital Signs Recent Vital Signs: Last Vital Signs Temp 99.1 F 12/13/18 15:00 Pulse 91 H 12/13/18 15:00 Resp 20 12/13/18 15:00 BP 127/74 12/13/18 15:00 Pulse Ox 94 L 12/13/18 15:00 - Labs Result Diagrams: 12/12/18 07:15 12/12/18 07:15 Labs: Laboratory Results - last 24 hr 12/12/18 12/13/18 12/13/18 21:11 07:11 11:02 POC Glucose (mg/dL) 180 H 151 H 188 H 12/13/18 12/13/18 15:59 20:59 POC Glucose (mg/dL) 297 H 189 H - Imaging and Cardiology CTA scan - abdomen Status: Report reviewed by me (RIGHT FOOT 2 CM S/C ULCER WITH ABSCESS FORMATION POSTERIOR MEDIAL RIGHT FOOT SUPERIOR TO CALCANEUS. nO SIGNIFICANT STENOSIS. sEE FULL REPORT.) Assessment & Plan (1) Wound of lower extremity Assessment and Plan: S/P I & D RIGHT LOWER EXTREMITY ABSCESS SUPERIOR TO CALCANEUM. 12/13/18 WOUND CULTURE +VE GNR -P. PANCULTURE. START iv CEFEPIME 1 G ONCE A DAY DAILY. 12/13/18. F/U CULTURES TO ADJUST THE ANTIBIOTICS. [facility] PER SURGERY WILL FOLLOW THE PATIENT WHILE IN HOSPITAL. Status: Acute (2) ESRD (end stage renal disease) on dialysis Assessment and Plan: ESRD ON HD TTS 12/11/18 ,12/13/18 PER NEPHROLOGY. Status: Acute (3) Hypertension Status: Acute
--- NOTE | 2018-12-14 03:57 | PN ---
DATE: 12/13/2018 FOLLOWUP RENAL CONSULTATION LOCATION: The patient is located in room 356, bed A. REQUESTED BY: Luis Manuel Staton MD REASON FOR FOLLOWUP: End-stage renal disease, continuation of hemodialysis. SUBJECTIVE: Mr. Pandey is a 73-year-old elderly -[place]ron[place] male with a history of longstanding hypertension, diabetes, cardiomyopathy, coronary artery disease, status post stent placement, status post AICD placement, AFib with rapid ventricular response who was recently admitted to subacute rehab in [facility] for nonhealing ulcers, and now the patient was admitted for wound debridement and nonhealing ulcers. The patient underwent bilateral leg wound debridement and evacuation of abscess on the right leg above the calcaneus. The patient is feeling better, not in acute distress. Denies any headache or dizziness. Denies any chest pain or palpitation. Denies any fever or cough. No abdominal pain. No nausea, vomiting, or diarrhea. The patient underwent hemodialysis this afternoon, had ultrafiltration about 3.4 L. PHYSICAL EXAMINATION: VITAL SIGNS: As follows: Blood pressure 135/64, pulse 90, respirations 16, temperature 97.3. Post-dialysis weight is 64.7 kg, which is 142 pounds. Height 5 feet 9 inches. Weight is 142 pounds. GENERAL: Mr. Pandey is a 73-year-old elderly -Micron[place] male, moderately built, moderately nourished, not in acute distress. HEENT: Pupils normal, reactive to light and accommodation. Conjunctivae pink. Sclerae anicteric. Tongue is moist. Trachea is midline. LUNGS: Symmetric on both sides. Bilateral breath sounds present. Clear to auscultation. CARDIOVASCULAR SYSTEM: [place] at the fifth intercostal space, midclavicular line. S1 and S2 audible. No murmur or gallop. ABDOMEN: Normal in appearance, soft, tympanitic. No guarding. No rigidity. No hepatosplenomegaly. CENTRAL NERVOUS SYSTEM: The patient is alert, awake, oriented x2 to 3. Sensory and motor system is grossly within normal limits. EXTREMITIES: No cyanosis, no clubbing. The patient has trace edema in both lower extremities, and also the patient has a dressing to both lower extremities after the debridement of the leg ulcers and also on heel protection and support. CURRENT MEDICATIONS: Include as follows: Cefepime 1 g daily, Coreg 3.125 mg p.o. p.r.n., lactulose 20 g p.o. daily, Nephro-Vivian one tablet daily, Neurontin 300 mg p.o. t.i.d., PhosLo 667 mg p.o. t.i.d., Plavix 75 mg p.o. daily, Proscar 5 mg p.o. daily, Sensipar 60 mg p.o. daily, Tylenol, tramadol, and 2 mcg three times a week. LABORATORY DATA: Include as follows: No new labs available for today. Accu-Cheks 151, 188 and 297. The wound culture is positive for gram-negative rods from the right ankle. ASSESSMENT AND PLAN: In summary, Mr. Pandey is a 73-year-old elderly male with a history of longstanding hypertension, diabetes, coronary artery disease, status post stent placement, status post automatic implantable cardioverter-defibrillator placement, cardiomyopathy, atrial fibrillation, end-stage renal disease, secondary hyperparathyroidism who was admitted with a nonhealing ulcer, status post wound debridement both legs yesterday. 1. End-stage renal disease. Continue hemodialysis three times a week. We will schedule next dialysis on Saturday to keep his outpatient schedule. 2. Hypertension. Blood pressure is stable. 3. Uncontrolled diabetes. 4. Secondary hyperparathyroidism. 5. Bilateral leg ulcers, status post debridement. Continue intravenous antibiotics. Restrict fluids to 1 L per day. Continue Zemplar and continue Sensipar and calcium acetate. We will follow with you. Thank you for allowing me to participate in your patient's care. The patient underwent hemodialysis this afternoon and had ultrafiltration 3.4 L. Gomez Vu MD
[2018-12-14 08:06] LABS: BASO % 0.5 % (0.0-2.0); EOS # 0.2 K/uL (0.0-0.7); EOS % 4.1 % (0.0-4.0); HEMOGLOBIN 10.1 g/dL (12.0-18.0); LYMPH # 0.4 K/uL (1.0-4.3); LYMPH % 7.3 % (20.0-40.0); MEAN CELL VOLUME 89.1 fL (80.0-94.0); MEAN CORPUSCULAR HEMOGLOBIN 27.6 pg (27.0-31.0); MEAN PLATELET VOLUME 7.3 fL (7.2-11.7); MONO # 0.5 K/uL (0.0-0.8); MONO % 10.1 % (0.0-10.0); NEUT # 4.2 K/uL (1.8-7.0); NRBC % 0.5 % (0.0-2.0); PLATELET COUNT 366 K/uL (130-400); RBC 3.67 Mil/uL (4.40-5.90); RED CELL DISTRIBUTION WIDTH 23.8 % (11.5-14.5); WHITE BLOOD COUNT 5.4 K/uL (4.8-10.8)
[2018-12-14 08:23] LABS: ALB/GLOB RATIO 1.3 (1.0-2.1); ALBUMIN 3.5 g/dL (3.5-5.0); BILIRUBIN,DIRECT 0.6 mg/dL (0.0-0.4); CALCIUM 8.5 mg/dl (8.6-10.4)
[2018-12-14] MEDS: Multivitamin Vitamin B Complex (Nephro-Vite) Tab PO SCH (09:51)
[2018-12-14 13:01] LABS: EOSINOPHIL 4 % (0-4); LYMPHOCYTE 6 % (20-40); MONOCYTE 8 % (0-10); NEUTROPHIL 82 % (50-75); TOTAL CELLS COUNTED 100
[2018-12-14 13:02] LABS: ANISOCYTOSIS MARKED; HYPOCHROMIC MODERATE; PLATELET ESTIMATE NORMAL (NORMAL); POIKILOCYTOSIS MODERATE
[2018-12-14 13:03] LABS: POLYCHROMIC SLIGHT
[2018-12-14 13:04] LABS: OVALOCYTES SLIGHT
[2018-12-14 13:07] LABS: BURR CELLS SLIGHT; TARGET CELLS SLIGHT; TEARDROP CELLS SLIGHT
[2018-12-14 13:09] LABS: LARGE PLATELETS PRESENT
[2018-12-14] MEDS ORDERED: Pneumococcal 23-Valent Vaccine IM ONE (13:27)
--- NOTE | 2018-12-14 14:13 | CP.PCM.PN ---
Subjective - Date & Time of Evaluation Date of Evaluation: 12/14/18 Time of Evaluation: 14:12 - Subjective Subjective: pt is seen and examined, follow up consult is dictated # s/p hd on and saturday for hd in am Objective - Vital Signs/Intake and Output Vital Signs (last 24 hours): Temp Pulse Resp BP Pulse Ox 97.9 F 77 20 116/70 95 12/14/18 07:00 12/14/18 07:00 12/14/18 07:00 12/14/18 07:00 12/14/18 07:00 Intake and Output: 12/14/18 12/14/18 06:59 18:59 Intake Total 350 Balance 350 - Medications Medications: Current Medications Acetaminophen (Tylenol 325mg Tab) 325 mg PO Q6 PRN PRN Reason: Pain, moderate (4-7) Apixaban (Eliquis) 5 mg PO BID [facility] Calcium Acetate (Phoslo) 667 mg PO TID [facility] Last Admin: 12/14/18 13:04 Dose: 667 mg Carvedilol (Coreg) 3.125 mg PO PRN PRN PRN Reason: see below Last Admin: 12/12/18 09:33 Dose: 3.125 mg Cinacalcet (Sensipar) 60 mg PO DAILY [facility] Last Admin: 12/14/18 09:52 Dose: 60 mg Clopidogrel Bisulfate (Plavix) 75 mg PO DAILY [facility] Last Admin: 12/14/18 09:52 Dose: 75 mg Finasteride (Proscar) 5 mg PO DAILY [facility] Last Admin: 12/14/18 09:52 Dose: 5 mg Gabapentin (Neurontin) 300 mg PO TID [facility] Last Admin: 12/14/18 13:04 Dose: 300 mg Cefepime HCl 1 gm/ Dextrose 50 mls @ 100 mls/hr IVPB Q24H [facility]; Protocol Last Admin: 12/13/18 17:34 Dose: 100 mls/hr Influenza Virus Vaccine (Flucelvax Quad 5466-6747 Syr) 60 mcg IM .ONCE ONE Stop: 12/15/18 10:01 Lactulose (Enulose) 20 gm PO DAILY [facility] Last Admin: 12/14/18 09:52 Dose: 20 gm Paricalcitol (Zemplar) 2 mcg IV TTS [facility] Last Admin: 12/13/18 10:58 Dose: 2 mcg Tramadol HCl (Ultram) 50 mg PO Q8H [facility] Last Admin: 12/14/18 11:25 Dose: Not Given Vitamin B Complex/Vit C/Folic Acid (Nephro-Vivian) 1 tab PO DAILY [facility] Last Admin: 12/14/18 09:51 Dose: 1 tab - Labs Labs: 12/14/18 07:50 12/14/18 07:50 PT 20.5 SECONDS (9.7-12.2) H 12/11/18 12:54 INR 1.9 12/11/18 12:54 APTT 41 SECONDS (21-34) H 12/11/18 12:54
--- NOTE | 2018-12-14 19:11 | CP.PCM.PN ---
Subjective - Date & Time of Evaluation Date of Evaluation: 12/14/18 Time of Evaluation: 19:10 - Subjective Subjective: pt is having no pain had BM last night eating ok no fever will d/c with ID for possible discharge and antibiotic in am Objective - Vital Signs/Intake and Output Vital Signs (last 24 hours): Temp Pulse Resp BP Pulse Ox 97.5 F L 81 20 126/73 97 12/14/18 16:00 12/14/18 16:00 12/14/18 16:00 12/14/18 16:00 12/14/18 16:00 - Medications Medications: Current Medications Acetaminophen (Tylenol 325mg Tab) 325 mg PO Q6 PRN PRN Reason: Pain, moderate (4-7) Apixaban (Eliquis) 5 mg PO BID [facility] Calcium Acetate (Phoslo) 667 mg PO TID [facility] Last Admin: 12/14/18 17:02 Dose: 667 mg Carvedilol (Coreg) 3.125 mg PO PRN PRN PRN Reason: see below Last Admin: 12/12/18 09:33 Dose: 3.125 mg Cinacalcet (Sensipar) 60 mg PO DAILY [facility] Last Admin: 12/14/18 09:52 Dose: 60 mg Clopidogrel Bisulfate (Plavix) 75 mg PO DAILY [facility] Last Admin: 12/14/18 09:52 Dose: 75 mg Finasteride (Proscar) 5 mg PO DAILY [facility] Last Admin: 12/14/18 09:52 Dose: 5 mg Gabapentin (Neurontin) 300 mg PO TID [facility] Last Admin: 12/14/18 17:02 Dose: 300 mg Cefepime HCl 1 gm/ Dextrose 50 mls @ 100 mls/hr IVPB Q24H [facility]; Protocol Last Admin: 12/14/18 16:48 Dose: 100 mls/hr Influenza Virus Vaccine (Flucelvax Quad 6516-3319 Syr) 60 mcg IM .ONCE ONE Stop: 12/15/18 10:01 Lactulose (Enulose) 20 gm PO DAILY [facility] Last Admin: 12/14/18 09:52 Dose: 20 gm Paricalcitol (Zemplar) 2 mcg IV TTS [facility] Last Admin: 12/13/18 10:58 Dose: 2 mcg Tramadol HCl (Ultram) 50 mg PO Q8H [facility] Last Admin: 03/24/19 11:25 Dose: Not Given Vitamin B Complex/Vit C/Folic Acid (Nephro-Vivian) 1 tab PO DAILY [facility] Last Admin: 12/14/18 09:51 Dose: 1 tab - Labs Labs: 12/14/18 07:50 12/14/18 07:50 PT 20.5 SECONDS (9.7-12.2) H 12/11/18 12:54 INR 1.9 12/11/18 12:54 APTT 41 SECONDS (21-34) H 12/11/18 12:54
--- NOTE | 2018-12-14 23:44 | CP.PCM.PN ---
Subjective - Date & Time of Evaluation Date of Evaluation: 12/14/18 Time of Evaluation: 23:43 - Subjective Subjective: AFEBRILE,AAO OFFERS NO COMPLAINTS. RESTING. WOUND CULTURE +VE SERRTIA JENNY S- CEFEPIME/CIPRO Objective - Vital Signs/Intake and Output Vital Signs (last 24 hours): Temp Pulse Resp BP Pulse Ox 97.5 F L 81 20 126/73 97 12/14/18 16:00 12/14/18 16:00 12/14/18 16:00 12/14/18 16:00 12/14/18 16:00 - Medications Medications: Current Medications Acetaminophen (Tylenol 325mg Tab) 325 mg PO Q6 PRN PRN Reason: Pain, moderate (4-7) Apixaban (Eliquis) 5 mg PO BID [facility] Calcium Acetate (Phoslo) 667 mg PO TID [facility] Last Admin: 12/14/18 17:02 Dose: 667 mg Carvedilol (Coreg) 3.125 mg PO PRN PRN PRN Reason: see below Last Admin: 12/12/18 09:33 Dose: 3.125 mg Cinacalcet (Sensipar) 60 mg PO DAILY [facility] Last Admin: 12/14/18 09:52 Dose: 60 mg Clopidogrel Bisulfate (Plavix) 75 mg PO DAILY [facility] Last Admin: 12/14/18 09:52 Dose: 75 mg Finasteride (Proscar) 5 mg PO DAILY [facility] Last Admin: 12/14/18 09:52 Dose: 5 mg Gabapentin (Neurontin) 300 mg PO TID [facility] Last Admin: 12/14/18 17:02 Dose: 300 mg Cefepime HCl 1 gm/ Dextrose 50 mls @ 100 mls/hr IVPB Q24H [facility]; Protocol Last Admin: 12/14/18 16:48 Dose: 100 mls/hr Influenza Virus Vaccine (Flucelvax Quad 2667-6164 Syr) 60 mcg IM .ONCE ONE Stop: 12/15/18 10:01 Lactulose (Enulose) 20 gm PO DAILY [facility] Last Admin: 12/14/18 09:52 Dose: 20 gm Paricalcitol (Zemplar) 2 mcg IV TTS [facility] Last Admin: 12/13/18 10:58 Dose: 2 mcg Tramadol HCl (Ultram) 50 mg PO Q8H [facility] Last Admin: 12/14/18 11:25 Dose: Not Given Vitamin B Complex/Vit C/Folic Acid (Nephro-Vivian) 1 tab PO DAILY [facility] Last Admin: 12/14/18 09:51 Dose: 1 tab - Labs Labs: 12/14/18 07:50 12/14/18 07:50 PT 20.5 SECONDS (9.7-12.2) H 12/11/18 12:54 INR 1.9 12/11/18 12:54 APTT 41 SECONDS (21-34) H 12/11/18 12:54 - Constitutional Appears: No Acute Distress - Head Exam Head Exam: NORMAL INSPECTION - Eye Exam Eye Exam: EOMI, PERRL - ENT Exam ENT Exam: Normal Oropharynx - Neck Exam Neck Exam: Normal Inspection - Respiratory Exam Respiratory Exam: Clear to Ausculation Bilateral - Cardiovascular Exam Cardiovascular Exam: REGULAR RHYTHM, +S1, +S2 - GI/Abdominal Exam GI & Abdominal Exam: Soft, Normal Bowel Sounds - Extremities Exam Extremities Exam: Pedal Edema (B/L LE +VE DRESSINGS/AND FELI BANDAGE). absent: Calf Tenderness - Neurological Exam Neurological Exam: Alert, Awake, CN II-XII Intact, Oriented x3, Reflexes Normal - Psychiatric Exam Psychiatric exam: Normal Mood - Skin Skin Exam: Normal Color, Warm Assessment and Plan (1) Wound of lower extremity Assessment & Plan: S/P I & D RIGHT LOWER EXTREMITY ABSCESS SUPERIOR TO CALCANEUM. 12/13/18 WOUND CULTURE +VE SERRATIA MARSCENS BLOOD CULTURES -VE TO DATE. CONTINUE iv CEFEPIME 1 G ONCE A DAY DAILY. 12/13/18 X 10DAYS [facility] PER SURGERY WILL FOLLOW THE PATIENT WHILE IN HOSPITAL. Status: Acute (2) ESRD (end stage renal disease) on dialysis Status: Acute (3) Hypertension Status: Acute
--- NOTE | 2018-12-15 02:08 | PN ---
DATE: 12/14/2018 FOLLOWUP RENAL CONSULTATION LOCATION: The patient is located in room 356, bed A. REQUESTED BY: Luis Manuel Staton MD REASON FOR FOLLOWUP: End-stage renal disease, continuation of hemodialysis, status post debridement of bilateral leg ulcers. SUBJECTIVE: Mr. Pandey is a 73-year-old elderly male with a past medical history significant for longstanding hypertension; diabetes; coronary artery disease, status post stent placement, status post AICD placement; end-stage renal disease, on hemodialysis three times a week, on Saturday, Saturday and Saturday; secondary hyperparathyroidism; who was recently admitted to [facility]. The patient was subsequently transferred to subacute rehab in [facility]. From there, the patient was sent to [facility] for nonhealing leg ulcers. The patient underwent abdominal angiogram and subsequently underwent debridement of both lower extremity leg ulcers on Saturday. The patient is feeling better, not in acute distress. He underwent hemodialysis yesterday, had ultrafiltration of 3.4 L. The patient denies any pain. PHYSICAL EXAMINATION: VITAL SIGNS: Blood pressure 116/50, pulse 77, respirations 20, temperature 97.9, saturation 95%. Height 5 feet 9 inches, weight 187 pounds. GENERAL: Mr. Pandey is a 73-year-old elderly male, moderately built, moderately nourished, not in distress. HEENT: Pupils are normal and reactive to light and accommodation. Conjunctivae pink. Sclerae anicteric. Tongue is moist. NECK: Trachea is midline. LUNGS: Symmetric on both sides. Bilateral breath sounds present, clear to auscultation. CARDIOVASCULAR SYSTEM: [place] at the fifth intercostal space, midclavicular line. S1 and S2 audible. No murmur or gallop. ABDOMEN: Normal in appearance, soft, tympanitic. No guarding. No rigidity. No hepatosplenomegaly. CENTRAL NERVOUS SYSTEM: The patient is alert, awake, oriented x2 to 3. Sensory and motor system is within normal limits. EXTREMITIES: No cyanosis, no clubbing, no edema. The patient has dressing to both lower extremities status post debridement of the leg ulcers. MEDICATIONS: His current medications include as follows: Cefepime 1 g daily, Coreg 3.125 mg p.o. p.r.n., lactulose 20 g p.o. daily, influenza vaccine, Nephro-Vivian one tablet daily, Neurontin 300 mg p.o. t.i.d., PhosLo 667 mg p.o. t.i.d., Plavix 75 mg daily, Proscar 5 mg p.o. daily, Sensipar 60 mg p.o. daily, Tylenol, tramadol 50 mg p.o. every 8 hours and Zemplar 2 mcg three times a week. LABORATORY DATA: Include as follows: As of 12/14/2018, WBC 5.4, hemoglobin 10.1, hematocrit 32.7, platelets 366. Neutrophils 82, lymphs 6, monos 8 and eosinophils 4. Sodium 133, potassium 3.8, chloride 99, CO2 of 27, BUN 28, creatinine 4.4, glucose 155, calcium 8.5, phosphorus 3.5, magnesium 2.4. Total bili 0.6, AST 18, ALT 14, alkaline phosphatase 97, total protein 6.2, albumin 3.5. Blood culture x2 negative, day one. Wound culture as of 12/12/2018, positive for Serratia marcescens. ASSESSMENT AND PLAN: In summary, Mr. Pandey is a 73-year-old elderly male with a history of hypertension, diabetes, end-stage renal disease, coronary artery disease, hyperlipidemia, secondary hyperparathyroidism with nonhealing bilateral leg ulcers, who was sent from the alf for evaluation. The patient underwent debridement of both leg ulcers on Saturday after abdominal angiogram and also underwent hemodialysis yesterday and had an ultrafiltration of 3.4 L. 1. End-stage renal disease. Continue hemodialysis on Saturday, Saturday and Saturday to keep his outpatient schedule for the next week. 2. Hypertension. 3. Diabetes. 4. Bilateral leg ulcers, status post debridement. Wound culture is positive for Serratia. Continue cefepime as per the primary team. We will continue Zemplar and also continue Sensipar and calcium acetate. We will follow with you. Thank you for allowing me to participate in your patient's care. Gomez Vu MD
--- NOTE | 2018-12-15 08:38 | CP.PCM.PN ---
Subjective - Date & Time of Evaluation Date of Evaluation: 12/12/18 Time of Evaluation: 08:38 - Subjective Subjective: Patient had dialysis. Patient is currently doing well. No fever. I spoke to the patient's . I also spoke to the surgeon. Patient underwent wound debridement of the right leg. Awaiting for cultures. Continue to monitor and will follow the patient Objective - Vital Signs/Intake and Output Vital Signs (last 24 hours): Temp Pulse Resp BP Pulse Ox 98 F 84 20 133/74 98 12/15/18 08:15 12/15/18 08:15 12/15/18 08:15 12/15/18 08:15 12/15/18 08:15 - Medications Medications: Current Medications Acetaminophen (Tylenol 325mg Tab) 325 mg PO Q6 PRN PRN Reason: Pain, moderate (4-7) Apixaban (Eliquis) 5 mg PO BID [facility] Calcium Acetate (Phoslo) 667 mg PO TID [facility] Last Admin: 12/14/18 17:02 Dose: 667 mg Carvedilol (Coreg) 3.125 mg PO PRN PRN PRN Reason: see below Last Admin: 12/12/18 09:33 Dose: 3.125 mg Cinacalcet (Sensipar) 60 mg PO DAILY [facility] Last Admin: 12/14/18 09:52 Dose: 60 mg Clopidogrel Bisulfate (Plavix) 75 mg PO DAILY [facility] Last Admin: 12/14/18 09:52 Dose: 75 mg Finasteride (Proscar) 5 mg PO DAILY [facility] Last Admin: 12/14/18 09:52 Dose: 5 mg Gabapentin (Neurontin) 300 mg PO TID [facility] Last Admin: 12/14/18 17:02 Dose: 300 mg Cefepime HCl 1 gm/ Dextrose 50 mls @ 100 mls/hr IVPB Q24H [facility]; Protocol Last Admin: 12/14/18 16:48 Dose: 100 mls/hr Influenza Virus Vaccine (Flucelvax Quad 1368-7536 Syr) 60 mcg IM .ONCE ONE Stop: 12/15/18 10:01 Lactulose (Enulose) 20 gm PO DAILY [facility] Last Admin: 12/14/18 09:52 Dose: 20 gm Paricalcitol (Zemplar) 2 mcg IV TTS [facility] Last Admin: 12/13/18 10:58 Dose: 2 mcg Tramadol HCl (Ultram) 50 mg PO Q8H [facility] Last Admin: 12/14/18 11:25 Dose: Not Given Vitamin B Complex/Vit C/Folic Acid (Nephro-Vivian) 1 tab PO DAILY [facility] Last Admin: 12/14/18 09:51 Dose: 1 tab - Labs Labs: 12/14/18 07:50 12/14/18 07:50 PT 20.5 SECONDS (9.7-12.2) H 12/11/18 12:54 INR 1.9 12/11/18 12:54 APTT 41 SECONDS (21-34) H 12/11/18 12:54
--- NOTE | 2018-12-15 08:38 | CP.PCM.PN ---
Subjective - Date & Time of Evaluation Date of Evaluation: 12/13/18 Time of Evaluation: 08:38 - Subjective Subjective: Patient is feeling well, no chest pain no shortness of breath. Eating well. Patient had a very significant constipation. He received a Dulcolax suppository, had a BM. The wound culture showing evidence of multiple bacterial organisms. Infectious disease evaluation pending. Continue the current treatment. We will discuss with ID for possible discharge plan after the recommendation Objective - Vital Signs/Intake and Output Vital Signs (last 24 hours): Temp Pulse Resp BP Pulse Ox 98 F 84 20 133/74 98 12/15/18 08:15 12/15/18 08:15 12/15/18 08:15 12/15/18 08:15 12/15/18 08:15 - Medications Medications: Current Medications Acetaminophen (Tylenol 325mg Tab) 325 mg PO Q6 PRN PRN Reason: Pain, moderate (4-7) Apixaban (Eliquis) 5 mg PO BID [facility] Calcium Acetate (Phoslo) 667 mg PO TID [facility] Last Admin: 12/14/18 17:02 Dose: 667 mg Carvedilol (Coreg) 3.125 mg PO PRN PRN PRN Reason: see below Last Admin: 12/12/18 09:33 Dose: 3.125 mg Cinacalcet (Sensipar) 60 mg PO DAILY [facility] Last Admin: 12/14/18 09:52 Dose: 60 mg Clopidogrel Bisulfate (Plavix) 75 mg PO DAILY [facility] Last Admin: 12/14/18 09:52 Dose: 75 mg Finasteride (Proscar) 5 mg PO DAILY [facility] Last Admin: 12/14/18 09:52 Dose: 5 mg Gabapentin (Neurontin) 300 mg PO TID [facility] Last Admin: 12/14/18 17:02 Dose: 300 mg Cefepime HCl 1 gm/ Dextrose 50 mls @ 100 mls/hr IVPB Q24H [facility]; Protocol Last Admin: 12/14/18 16:48 Dose: 100 mls/hr Influenza Virus Vaccine (Flucelvax Quad 1272-4825 Syr) 60 mcg IM .ONCE ONE Stop: 12/15/18 10:01 Lactulose (Enulose) 20 gm PO DAILY [facility] Last Admin: 12/14/18 09:52 Dose: 20 gm Paricalcitol (Zemplar) 2 mcg IV TTS [facility] Last Admin: 12/13/18 10:58 Dose: 2 mcg Tramadol HCl (Ultram) 50 mg PO Q8H [facility] Last Admin: 12/14/18 11:25 Dose: Not Given Vitamin B Complex/Vit C/Folic Acid (Nephro-Vivian) 1 tab PO DAILY [facility] Last Admin: 12/14/18 09:51 Dose: 1 tab - Labs Labs: 12/14/18 07:50 12/14/18 07:50 PT 20.5 SECONDS (9.7-12.2) H 12/11/18 12:54 INR 1.9 12/11/18 12:54 APTT 41 SECONDS (21-34) H 12/11/18 12:54
[2018-12-15] MEDS: Multivitamin Vitamin B Complex (Nephro-Vite) Tab PO SCH (09:49)
[2018-12-15] MEDS ORDERED: Influenza Vaccine 60 mcg/0.5 mL SYR (4YR UP) IM ONE (10:00)
--- NOTE | 2018-12-15 13:06 | CP.PCM.PN ---
Subjective - Date & Time of Evaluation Date of Evaluation: 12/15/18 Time of Evaluation: 13:06 - Subjective Subjective: pt is seen and examined, follow up consult is dictated # for hd today d/c to [facility] after hd today, d/w dr. Staton Objective - Vital Signs/Intake and Output Vital Signs (last 24 hours): Temp Pulse Resp BP Pulse Ox 98 F 84 20 133/74 98 12/15/18 08:15 12/15/18 08:15 12/15/18 08:15 12/15/18 08:15 12/15/18 08:15 - Medications Medications: Current Medications Acetaminophen (Tylenol 325mg Tab) 325 mg PO Q6 PRN PRN Reason: Pain, moderate (4-7) Apixaban (Eliquis) 5 mg PO BID [facility] Calcium Acetate (Phoslo) 667 mg PO TID [facility] Last Admin: 12/15/18 09:49 Dose: 667 mg Carvedilol (Coreg) 3.125 mg PO PRN PRN PRN Reason: see below Last Admin: 12/12/18 09:33 Dose: 3.125 mg Cinacalcet (Sensipar) 60 mg PO DAILY [facility] Last Admin: 12/15/18 09:50 Dose: 60 mg Clopidogrel Bisulfate (Plavix) 75 mg PO DAILY [facility] Last Admin: 12/15/18 09:49 Dose: 75 mg Finasteride (Proscar) 5 mg PO DAILY [facility] Last Admin: 12/15/18 09:49 Dose: 5 mg Gabapentin (Neurontin) 300 mg PO TID [facility] Last Admin: 12/15/18 09:49 Dose: 300 mg Cefepime HCl 1 gm/ Dextrose 50 mls @ 100 mls/hr IVPB Q24H [facility]; Protocol Last Admin: 12/14/18 16:48 Dose: 100 mls/hr Lactulose (Enulose) 20 gm PO DAILY [facility] Last Admin: 12/15/18 09:50 Dose: 20 gm Paricalcitol (Zemplar) 2 mcg IV TTS [facility] Last Admin: 12/13/18 10:58 Dose: 2 mcg Tramadol HCl (Ultram) 50 mg PO Q8H [facility] Last Admin: 12/14/18 11:25 Dose: Not Given Vitamin B Complex/Vit C/Folic Acid (Nephro-Vivian) 1 tab PO DAILY [facility] Last Admin: 12/15/18 09:49 Dose: 1 tab - Labs Labs: 12/14/18 07:50 12/14/18 07:50 PT 20.5 SECONDS (9.7-12.2) H 12/11/18 12:54 INR 1.9 12/11/18 12:54 APTT 41 SECONDS (21-34) H 12/11/18 12:54
[2018-12-15 15:39] VITALS: PULSE 75; RESP 16
--- NOTE | 2018-12-15 16:15 | CP.PCM.PN ---
Subjective - Date & Time of Evaluation Date of Evaluation: 12/15/18 Time of Evaluation: 16:15 - Subjective Subjective: afebrile, no complaints . for HD TODAY MWF CASE DISCUSSED W [employer], ON IV CEFEPIME 1GM IVPB QD DAILY X 10 DAYS. Objective - Vital Signs/Intake and Output Vital Signs (last 24 hours): Temp Pulse Resp BP Pulse Ox 97.3 F L 75 16 125/67 98 12/15/18 13:50 12/15/18 13:50 12/15/18 13:50 12/15/18 15:00 12/15/18 14:24 - Medications Medications: Current Medications Acetaminophen (Tylenol 325mg Tab) 325 mg PO Q6 PRN PRN Reason: Pain, moderate (4-7) Apixaban (Eliquis) 5 mg PO BID [facility] Calcium Acetate (Phoslo) 667 mg PO TID [facility] Last Admin: 12/15/18 13:50 Dose: Not Given Carvedilol (Coreg) 3.125 mg PO PRN PRN PRN Reason: see below Last Admin: 12/12/18 09:33 Dose: 3.125 mg Cinacalcet (Sensipar) 60 mg PO DAILY [facility] Last Admin: 12/15/18 09:50 Dose: 60 mg Clopidogrel Bisulfate (Plavix) 75 mg PO DAILY [facility] Last Admin: 12/15/18 09:49 Dose: 75 mg Epoetin Nav (Procrit) 4,000 unit IV [facility] Finasteride (Proscar) 5 mg PO DAILY [facility] Last Admin: 12/15/18 09:49 Dose: 5 mg Gabapentin (Neurontin) 300 mg PO TID [facility] Last Admin: 12/15/18 13:50 Dose: Not Given Cefepime HCl 1 gm/ Dextrose 50 mls @ 100 mls/hr IVPB Q24H [facility]; Protocol Last Admin: 12/14/18 16:48 Dose: 100 mls/hr Lactulose (Enulose) 20 gm PO DAILY [facility] Last Admin: 12/15/18 09:50 Dose: 20 gm Paricalcitol (Zemplar) 2 mcg IV [facility] Tramadol HCl (Ultram) 50 mg PO Q8H [facility] Last Admin: 12/14/18 11:25 Dose: Not Given Vitamin B Complex/Vit C/Folic Acid (Nephro-Vivian) 1 tab PO DAILY [facility] Last Admin: 12/15/18 09:49 Dose: 1 tab - Labs Labs: 12/14/18 07:50 12/14/18 07:50 PT 20.5 SECONDS (9.7-12.2) H 12/11/18 12:54 INR 1.9 12/11/18 12:54 APTT 41 SECONDS (21-34) H 12/11/18 12:54 - Constitutional Appears: No Acute Distress - Head Exam Head Exam: NORMAL INSPECTION - Eye Exam Eye Exam: EOMI, PERRL - ENT Exam ENT Exam: Normal Oropharynx - Neck Exam Neck Exam: Normal Inspection - Respiratory Exam Respiratory Exam: Clear to Ausculation Bilateral, NORMAL BREATHING PATTERN - Cardiovascular Exam Cardiovascular Exam: REGULAR RHYTHM, +S1, +S2 - GI/Abdominal Exam GI & Abdominal Exam: Soft, Normal Bowel Sounds - Extremities Exam Extremities Exam: Pedal Edema (B/L LE ULCERS S/P DEBRIDEMENT). absent: Calf Tenderness - Neurological Exam Neurological Exam: Alert, Awake, CN II-XII Intact, Reflexes Normal - Psychiatric Exam Psychiatric exam: Normal Mood - Skin Skin Exam: Normal Color, Warm Assessment and Plan (1) Wound of lower extremity Assessment & Plan: S/P I & D RIGHT LOWER EXTREMITY ABSCESS SUPERIOR TO CALCANEUM. 12/13/18 WOUND CULTURE +VE SERRATIA MARSCENS BLOOD CULTURES -VE TO DATE. CONTINUE iv CEFEPIME 1 G ONCE A DAY DAILY. 12/13/18 X 10DAYS [facility] PER SURGERY WILL FOLLOW THE PATIENT WHILE IN HOSPITAL. Status: Acute (2) ESRD (end stage renal disease) on dialysis Status: Acute (3) Hypertension Status: Acute
[2018-12-15] MEDS ORDERED: Paricalcitol 2 mcg/ml Inj IV SCH (17:00)
[2018-12-15 18:19] VITALS: BP 139/71; TEMP 96; O2SAT 100
--- NOTE | 2018-12-16 02:48 | PN ---
DATE: 12/15/2018 FOLLOWUP RENAL CONSULTATION LOCATION: The patient is located in [facility], room 356, bed A. REQUESTED BY: Luis Manuel Staton MD REASON FOR FOLLOWUP: End-stage renal disease, continuation of hemodialysis. HISTORY OF PRESENT ILLNESS: Mr. Pandey is a 73-year-old elderly male with a history of longstanding hypertension; diabetes; hyperlipidemia; end-stage renal disease, on hemodialysis three times a week Saturday, Saturday, and Saturday; secondary hyperparathyroidism; coronary artery disease, status post stent placement, status post defibrillator placement who was recently admitted to [facility] about a month ago. Subsequently, the patient was transferred to a subacute rehab in [facility]. From there, the patient was recently admitted to [facility] for nonhealing bilateral leg ulcer. The patient underwent debridement of the both ulcers. The patient is being scheduled to transfer back to rehab this evening after dialysis. The patient denies any chest pain or palpitation. Denies any fever or cough. No abdominal pain. No nausea, vomiting, diarrhea. PHYSICAL EXAMINATION: VITAL SIGNS: As follows: Blood pressure 116/72, pulse 74, respirations 18, temperature 96. Saturation 100%. His post dialysis weight is 66.2 kg. GENERAL: Mr. Pandey is a 73-year-old elderly male, moderately built, moderately nourished, not in distress. HEENT: Pupils normal and reactive to light and accommodation. Conjunctivae pink. Sclerae anicteric. Tongue is moist. Trachea is midline. LUNGS: Symmetric on both sides. Bilateral breath sounds present. Clear to auscultation. CARDIOVASCULAR SYSTEM: [place] at the fifth intercostal space midclavicular line. S1, S2 audible. No murmur or gallop. ABDOMEN: Normal in appearance, soft, tympanitic. No guarding. No hepatosplenomegaly. CENTRAL NERVOUS SYSTEM: The patient is alert, awake, oriented x3. Nonfocal neuro examination. Cranial nerves II through XII grossly intact. Sensory and motor system is within normal limits. EXTREMITIES: No cyanosis, no clubbing, no edema. The patient has a dressing to the both lower extremities, status post debridement of bilateral leg ulcers. CURRENT MEDICATIONS: Include as follows: Eliquis 5 mg p.o. b.i.d., PhosLo 667 mg p.o. t.i.d., Coreg 3.125 mg p.o. p.r.n., Sensipar 60 mg p.o. daily, Plavix 75 mg daily, Proscar 5 mg at bedtime, gabapentin 300 mg p.o. t.i.d., cefepime 1 g daily, lactulose 20 g p.o. daily, Zemplar 2 mcg three times a week, tramadol 50 mg p.o. every 8 hours, Nephro-Vivian 1 tablet p.o. daily. LABORATORY DATA: No new labs available for today, and Accu-Cheks this morning 171, 274, and 128. ASSESSMENT AND PLAN: In summary, Mr. Pandey is a 73-year-old elderly male with a history of longstanding hypertension, diabetes, hyperlipidemia, end-stage renal disease, second hyperparathyroidism, coronary artery disease, status post stent placement, status post defibrillator, atrial fibrillation, and history of rapid ventricular response, started on recently anticoagulation with bilateral leg ulcer who was admitted to subacute rehab from the [facility] recently and now sent to the surgery evaluation, and the patient underwent debridement of the bilateral lower extremity ulcers. 1. End-stage renal disease. Continue hemodialysis three times a week, Saturday, Saturday, and Saturday. 2. Hypertension. Blood pressure is stable. Continue his current medications, Coreg p.r.n. 3. Bilateral leg ulcers, status post debridement. Continue cefepime as per primary team and continue Zemplar. Continue tramadol and Nephro-Vivian and gabapentin. Continue Eliquis. The patient is scheduled for hemodialysis this afternoon, and UF goal is about 2 to 2.5 liters. Possible discharge post dialysis, back to [facility]. Gomez Vu MD
[2018-12-17] MEDS ORDERED: EPOETIN ALFA 4,000 UNIT/ML ML Dialysis IV SCH (09:00)
== END 2018-12-15 20:54 | DRG 579 ==
LOC: C.ER 11:41 → C.9E 15:52 → C.3T 16:41 → OBSVTOIN 12-13 15:33
PROVIDERS: ADMIT Internal Medicine; ATTEND Internal Medicine
PROC: 0KBS0ZZ Excision of Right Lower Leg Muscle, Open Approach (ICD-10-PCS; principal; 2018-12-13)
PROC: 0KBT0ZZ Excision of Left Lower Leg Muscle, Open Approach (ICD-10-PCS; 2018-12-13)
PROC: 5A1D70Z Performance of Urinary Filtration, Intermittent, Less than 6 Hours Per Day (ICD-10-PCS; 2018-12-13)
PROC: 5A1D70Z Performance of Urinary Filtration, Intermittent, Less than 6 Hours Per Day (ICD-10-PCS; 2018-12-15)
DX: L97.223 Non-pressure chronic ulcer of left calf with necrosis of muscle (principal); N18.6 End stage renal disease; I13.2 Hypertensive heart and chronic kidney disease with heart failure and with stage 5 chronic kidney disease, or end stage renal disease; L02.415 Cutaneous abscess of right lower limb; I42.9 Cardiomyopathy, unspecified; N25.81 Secondary hyperparathyroidism of renal origin; E11.622 Type 2 diabetes mellitus with other skin ulcer; L97.213 Non-pressure chronic ulcer of right calf with necrosis of muscle; L97.423 Non-pressure chronic ulcer of left heel and midfoot with necrosis of muscle; L97.413 Non-pressure chronic ulcer of right heel and midfoot with necrosis of muscle; E11.621 Type 2 diabetes mellitus with foot ulcer; E11.51 Type 2 diabetes mellitus with diabetic peripheral angiopathy without gangrene; E11.22 Type 2 diabetes mellitus with diabetic chronic kidney disease; E11.65 Type 2 diabetes mellitus with hyperglycemia; B96.89 Other specified bacterial agents as the cause of diseases classified elsewhere; E87.5 Hyperkalemia; I25.10 Atherosclerotic heart disease of native coronary artery without angina pectoris; I48.91 Unspecified atrial fibrillation; I50.9 Heart failure, unspecified; M79.606 Pain in leg, unspecified; K59.00 Constipation, unspecified; E78.5 Hyperlipidemia, unspecified; Z95.810 Presence of automatic (implantable) cardiac defibrillator; Z95.5 Presence of coronary angioplasty implant and graft; Z99.2 Dependence on renal dialysis; Z79.4 Long term (current) use of insulin; Z79.01 Long term (current) use of anticoagulants; Z79.02 Long term (current) use of antithrombotics/antiplatelets; Z87.891 Personal history of nicotine dependence; Z82.49 Family history of ischemic heart disease and other diseases of the circulatory system

== ENCOUNTER 2019-01-06 15:48 | Inpatient (IN) | payer MEDICARE, OTHER ==
[2019-01-06 16:24] VITALS: BMI 27.6
--- NOTE | 2019-01-06 17:05 | C.PDOC ---
History Of Present Illness 73 year old male presents to ED for evaluation of wound to the right ankle. Patient has a necrotic ulcer to the right ankle. Patient is in mild pain and is on antibiotics for his previous wound. Patient was seen by his rn perinatal, Dr. Stein, who told him to come to the ER for further evaluation. [facility]. He had a PMHx of ESRD, hypertension, and CHF. Patient denies trauma, weakness, and numbness. Time Seen by Provider: 01/06/19 16:18 Chief Complaint (Nursing): Abnormal Skin Integrity History Per: Patient History/Exam Limitations: no limitations Onset/Duration Of Symptoms: Unknown Current Symptoms Are (Timing): Still Present Location Of Injury: Right: Ankle (wound, necrotic ulcer) Past Medical History Reviewed: Historical Data, Nursing Documentation, Vital Signs Vital Signs: Last Vital Signs Temp 97.5 F L 01/06/19 15:56 Pulse 83 01/06/19 15:56 Resp 20 01/06/19 15:56 BP 133/88 01/06/19 15:56 Pulse Ox 100 01/06/19 15:56 - Medical History PMH: CHF, HTN, End Stage Renal Disease, Chronic Kidney Disease Surgical History: No Surg Hx - [facility] Procedures (12/13/18) EXCISION OF LEFT LOWER LEG MUSCLE, OPEN APPROACH (12/13/18) EXCISION OF RIGHT LOWER LEG MUSCLE, OPEN APPROACH (12/13/18) Family History: States: Unknown Family Hx - Social History Hx Alcohol Use: No Hx Substance Use: No - Immunization History Hx Tetanus Toxoid Vaccination: No Hx Influenza Vaccination: Yes Hx Pneumococcal Vaccination: Yes Review Of Systems Constitutional: Negative for: Fever Musculoskeletal: Positive for: Other (right ankle wound, necrotic ulcer to the right ankle) Skin: Negative for: Rash Neurological: Negative for: Weakness, Numbness Physical Exam - Physical Exam Appears: Non-toxic, No Acute Distress Skin: Normal Color, Warm, Dry Head: Atraumatic, Normacephalic Neck: Normal ROM, Supple Chest: Symmetrical, No Deformity Respiratory: No Accessory Muscle Use Extremity: Normal ROM, Capillary Refill (<2 seconds), No Swelling (posterior right ankle), Other (large necrotic wound to the posterior right ankle with no drainage) Pulses: Left Dorsalis Pedis: Normal, Right Dorsalis Pedis: Normal Neurological/Psych: Oriented x3, Normal Speech, Normal Cognition, Normal Motor ED Course And Treatment - Laboratory Results Result Diagrams: 01/06/19 17:08 01/06/19 17:08 O2 Sat by Pulse Oximetry: 100 (in RA) - Other Rad Bilateral Ankle X-ray X-Ray: Interpreted by Me, Viewed By Me Interpretation: IMPRESSION: Right ankle: Deep ulcer without adjacent underlying radiographic evidence of acute osteomyelitis. Left ankle: Soft tissue swelling without acute articular or osseous abnormality. Medical Decision Making Medical Decision Making: Plan: Labs ordered with CMP, CBC, and blood culture Bilateral ankle X-ray ordered for patient The patient was evaluated by podiatry resident and case was discussed with Dr. Stein who will consult on the patient take the patient to OR for surgical debridement. Case was discussed with dr. Staton (covering for Dr. Kizzy Smalls) and agrees to admit the patient. Disposition - Disposition Disposition: HOSPITALIZED Disposition Time: 18:33 Condition: STABLE Forms: [facility] (Pashto) - POA Present On Arrival: None - Clinical Impression Clinical Impression: Decubitus ulcer of ankle, Wound of lower extremity - PA / RETAIL CUSTOMER SERVICE SPECIALIST / Resident Statement MD/DO has reviewed & agrees with the documentation as recorded. (Alayna Hooper) - Scribe Statement The provider has reviewed the documentation as recorded by the Scribe (Alayna Hooper) All medical record entries made by the Scribe were at my direction and personally dictated by me. I have reviewed the chart and agree that the record accurately reflects my personal performance of the history, physical exam, medical decision making, and the department course for this patient. I have also personally directed, reviewed, and agree with the discharge instructions and disposition.
[2019-01-06 17:17] LABS: BASO # 0.1 K/uL (0.0-0.2); BASO % 1.9 % (0.0-2.0); EOS # 0.2 K/uL (0.0-0.7); EOS % 2.9 % (0.0-4.0); HEMOGLOBIN 11.1 g/dL (12.0-18.0); LYMPH # 0.5 K/uL (1.0-4.3); LYMPH % 8.9 % (20.0-40.0); MEAN CELL VOLUME 90.7 fL (80.0-94.0); MEAN CORPUSCULAR HEMOGLOBIN 28.1 pg (27.0-31.0); MEAN PLATELET VOLUME 8.6 fL (7.2-11.7); MONO # 0.5 K/uL (0.0-0.8); MONO % 8.5 % (0.0-10.0); NEUT # 4.2 K/uL (1.8-7.0); NEUT % 77.8 % (50.0-75.0); NRBC % 0.5 % (0.0-2.0); PLATELET COUNT 148 K/uL (130-400); RBC 3.94 Mil/uL (4.40-5.90); RED CELL DISTRIBUTION WIDTH 25.8 % (11.5-14.5); WHITE BLOOD COUNT 5.4 K/uL (4.8-10.8)
[2019-01-06 17:37] LABS: ALB/GLOB RATIO 1.2 (1.0-2.1); ALBUMIN 3.9 g/dL (3.5-5.0); CALCIUM 9.3 mg/dl (8.6-10.4)
--- NOTE | 2019-01-06 17:56 | RAD ---
Date of service: 01/06/2019 PROCEDURE: Bilateral ankles HISTORY: wounds to the bilateral achilles region COMPARISON: None TECHNIQUE: Standard protocol for this study/examination. FINDINGS: Right ankle: Deep ulcer adjacent to the distal right fibula without radiographic evidence of acute osteomyelitis. Plantar and Achilles Tendon insertion calcaneal spurs. No fractures identified. Left ankle: Lateral soft tissue swelling without distal fibular abnormality. IMPRESSION: Right ankle: Deep ulcer without adjacent underlying radiographic evidence of acute osteomyelitis. Left ankle: Soft tissue swelling without acute articular or osseous abnormality.
--- NOTE | 2019-01-06 19:19 | CP.PCM.CON ---
History of Present Illness - History of Present Illness History of Present Illness: Podiatry Consult Note for Dr. Stein 73M PMH CHF, HTN, ESRD on dialysis seen in ED for b/l lower extremity wounds and pain. Patient states that his wounds and pain began roughly a month ago. He has been seen by Dr. Stein in his nursing facility for wound care management and also states that he has [facility]. He states that Dr. Stein instructed him to come to the ED in order to be booked for a wound debridement. He is AAO x 3 and NAD at time of visit. Denies any further pedal complaints. Denies any recent N/V/F/C/CP/SOB/D. Meds: See MAR All: NKDA Review of Systems - Review of Systems All systems: reviewed and no additional remarkable complaints except Review of Systems: as per HPI Past Patient History - Past Medical History & Family History Past Medical History?: Yes - Past Social History Smoking Status: Former Smoker - CARDIAC Hx Congestive Heart Failure: Yes Hx Hypertension: Yes - RENAL Hx Chronic Kidney Disease: Yes - MUSCULOSKELETAL/RHEUMATOLOGICAL Hx Falls: No - PSYCHIATRIC Hx Substance Use: No - SURGICAL HISTORY Hx Surgeries: Yes Other/Comment: LEFT ARM AV SHUNT. ICD INSERTED - ANESTHESIA Hx Anesthesia: Yes Hx Anesthesia Reactions: No Meds Allergies/Adverse Reactions: Allergies Allergy/AdvReac Type Severity Reaction Status Date / Time No Known Allergies Allergy Verified 01/06/19 15:56 Physical Exam - Constitutional Appears: Well, Non-toxic, No Acute Distress - Extremities Exam Additional comments: Lower Extremity Focused Exam Vasc: DP/PT pulses faintly palpable 1/4 b/l. Skin temperature warm to warm from proximal to distal WNL. CFT < 3 seconds to all digits b/l. Minimal, diffuse edema noted to b/l lower extremities Neuro: Epicritic and protective sensation grossly intact b/l Derm: RLE - 4 cm x 3 cm x 0.3 cm ulceration noted to lateral lower leg. Wound base is fibrogranular in nature. No erythema, malodor, drainage, tracking, tunneling or undermining. No evidence of infection appreciated. Two 1 cm x 1 cm x 0.1 cm ulcerations noted along length of achilles tendon approximately 2 and 4 cm proximal to its insertion site. Achilles tendon vs. paratenon exposed in both ulceration sites. No erythema, malodor, drainage, tracking, tunneling or undermining. No evidence of infection appreciated. LLE - 0.1 cm x 0.1 cm x 0.1 cm noted to posterior heel. No erythema, malodor, drainage, tracking, tunneling or undermining. No evidence of infection appreciated. Multiple areas of hyperpigmentation noted to b/l lower extremities MSK: Pain on palpation to all ulceration sites. Diffuse pain to b/l LE R>L. No gross deformities appreciated - Neurological Exam Neurological exam: Alert, Oriented x3 - Psychiatric Exam Psychiatric exam: Normal Affect, Normal Mood Results - Vital Signs Recent Vital Signs: Last Vital Signs Temp 97.5 F L 01/06/19 15:56 Pulse 83 01/06/19 15:56 Resp 20 01/06/19 15:56 BP 133/88 01/06/19 15:56 Pulse Ox 100 01/06/19 18:34 - Labs Result Diagrams: 01/06/19 17:08 01/06/19 17:08 Labs: Laboratory Results - last 24 hr 01/06/19 01/06/19 17:08 17:08 WBC 5.4 RBC 3.94 L Hgb 11.1 L Hct 35.7 MCV 90.7 MCH 28.1 MCHC 31.0 L RDW 25.8 H Plt Count 148 D MPV 8.6 Neut % (Auto) 77.8 H Lymph % (Auto) 8.9 L [place] % (Auto) 8.5 Eos % (Auto) 2.9 Baso % (Auto) 1.9 Neut # (Auto) 4.2 Lymph # (Auto) 0.5 L [place] # (Auto) 0.5 Eos # (Auto) 0.2 Baso # (Auto) 0.1 Sodium 130 L Potassium 5.7 H Chloride 90 L Carbon Dioxide 28 Anion Gap 18 BUN 45 H Creatinine 5.1 H Est GFR ( Amer) 13 Est GFR (Non-Af Amer) 11 Random Glucose 122 H D Calcium 9.3 Total Bilirubin 1.0 AST 65 H D ALT 21 D Alkaline Phosphatase 99 Total Protein 7.1 Albumin 3.9 Globulin 3.3 Albumin/Globulin Ratio 1.2 Assessment & Plan - Assessment and Plan (Free Text) Assessment: 73M PMH CHF, HTN, ESRD on dialysis seen in ED for b/l lower extremity wounds and pain. Plan: Patient seen and evaluated Plan discussed with Dr. Stein Afebrile, absent leukocytosis Infectious disease consult ordered, recommendations appreciated Wound culture from lateral right leg taken, f/u results B/l ankle xrays: Right ankle - Deep ulcer without adjacent underlying radiographic evidence of acute osteomyelitis. Left ankle - Soft tissue swelling without acute articular or osseous abnormality. Vascular consult placed, recs appreciated Right leg wounds dressed with wet to dry DSD Left leg wound dressed with Telfa Multipodus boots ordered to be applied on floors when patient is admitted Per Dr. Stein, wound debridement will be scheduled for later this week pending medical clearance MEDICAL OPTIMIZATION NEEDED AT THIS TIME Podiatry will continue to follow while patient in house - Date & Time Date: 01/06/19 Time: 20:03
[2019-01-06 20:22] LABS: EOSINOPHIL 4 % (0-4); LYMPHOCYTE 7 % (20-40); MONOCYTE 4 % (0-10); NEUTROPHIL 85 % (50-75); TOTAL CELLS COUNTED 100
[2019-01-06 20:23] LABS: PLATELET ESTIMATE NORMAL (NORMAL)
[2019-01-06 20:24] LABS: TARGET CELLS SLIGHT
[2019-01-06 20:25] LABS: ANISOCYTOSIS MODERATE
--- NOTE | 2019-01-06 21:01 | CP.PCM.HP ---
History of Present Illness - History of Present Illness History of Present Illness: Chief complaint: Bilateral leg pain, and chronic ulcers. HPI: 73-year-old male with a history of end-stage renal disease, on dialysis hypertension, congestive heart failure, peripheral vascular disease, ischemic heart disease was sent from the rehabilitation center with the symptoms of worsening right leg ulcer, associated with the draining sinuses and also possibility of increasing symptoms of ulcers. Patient was seen by informatics consultant. Patient needed wound debridement patient needed at this time hospitalization because of his overall medical condition. Also dialysis status. Chronic ulcers and also noted. Patient needed further management and treatment at this time. Past medical history: Chronic renal failure, end-stage renal disease on dialysis hypertension, congestive heart failure Surgical history: Left arm AV fistula Family history significant for hypertension and heart disease Patient is a nonalcoholic and non-smoker now. Vaccination is updated Review of system: Patient is currently receiving the dialysis. Patient has swelling over the left upper extremity. AV fistula in the left arm noted. Patient has no chest pain he denies any nausea he denies any vomiting he denies abdominal pain Patient has a pain bilaterally in the legs. Also patient has a discoloration of the great toes bilaterally On examination: Vital signs reviewed Stable. Chest good air entry bilaterally, regular sounds noted, nontender abdomen. Extremities patient has a poor peripheral pulses noted. Right lower extremity there is a significant draining ulcers noted, associated with redness, mostly painless. Labs reviewed EKG reviewed Also x-ray. Patient also needs to have the hemodialysis Assessment and recommendation: Patient is a 73-year-old male with history of hypertension, atherosclerotic aortic disease, renal insufficiency, end-stage renal disease on dialysis, congestive heart failure, status post pacemaker. Patient now admitted with a nonhealing leg ulcers, Patient is currently having increasing symptoms of leg ulcer, associate with a cellulitis, and the possibility of impending superficial skin gangrenous changes. Podiatry evaluation and possible wound debridement in the morning. We will get a nephrology evaluation for hemodialysis. DVT GI prophylaxis. Medications reviewed and reconciled. We will follow the patient Present on Admission - Present on Admission Any Indicators Present on Admission: No History of DVT/PE: No History of Uncontrolled Diabetes: No Urinary Catheter: No Decubitus Ulcer Present: No Past Patient History - Past Medical History & Family History Past Medical History?: Yes - Past Social History Smoking Status: Former Smoker - CARDIAC Hx Congestive Heart Failure: Yes Hx Hypertension: Yes - RENAL Hx Chronic Kidney Disease: Yes - MUSCULOSKELETAL/RHEUMATOLOGICAL Hx Falls: No - PSYCHIATRIC Hx Substance Use: No - SURGICAL HISTORY Hx Surgeries: Yes Other/Comment: LEFT ARM AV SHUNT. ICD INSERTED - ANESTHESIA Hx Anesthesia: Yes Hx Anesthesia Reactions: No Meds Allergies/Adverse Reactions: Allergies Allergy/AdvReac Type Severity Reaction Status Date / Time No Known Allergies Allergy Verified 01/06/19 15:56 Results - Vital Signs Recent Vital Signs: Last Vital Signs Temp 97.6 F 01/06/19 19:14 Pulse 87 01/06/19 19:14 Resp 19 01/06/19 19:14 BP 130/80 01/06/19 19:14 Pulse Ox 100 01/06/19 19:14 - Labs Result Diagrams: 01/06/19 17:08 01/06/19 17:08 Labs: Laboratory Results - last 24 hr 01/06/19 01/06/19 17:08 17:08 WBC 5.4 RBC 3.94 L Hgb 11.1 L Hct 35.7 MCV 90.7 MCH 28.1 MCHC 31.0 L RDW 25.8 H Plt Count 148 D MPV 8.6 Neut % (Auto) 77.8 H Lymph % (Auto) 8.9 L [place] % (Auto) 8.5 Eos % (Auto) 2.9 Baso % (Auto) 1.9 Neut # (Auto) 4.2 Lymph # (Auto) 0.5 L [place] # (Auto) 0.5 Eos # (Auto) 0.2 Baso # (Auto) 0.1 Neutrophils % (Manual) 85 H Lymphocytes % (Manual) 7 L Monocytes % (Manual) 4 Eosinophils % (Manual) 4 Platelet Estimate Normal Anisocytosis (manual) Moderate Target Cells Slight Sodium 130 L Potassium 5.7 H Chloride 90 L Carbon Dioxide 28 Anion Gap 18 BUN 45 H Creatinine 5.1 H Est GFR ( Amer) 13 Est GFR (Non-Af Amer) 11 Random Glucose 122 H D Calcium 9.3 Total Bilirubin 1.0 AST 65 H D ALT 21 D Alkaline Phosphatase 99 Total Protein 7.1 Albumin 3.9 Globulin 3.3 Albumin/Globulin Ratio 1.2
--- NOTE | 2019-01-06 21:29 | CP.PCM.CON ---
History of Present Illness - History of Present Illness History of Present Illness: Surgery: Dr. Langford Reason for consult: bl LE wounds HPI: Patient is a 73 y/o male with PMH of ESRD on HD MWF, CHF, HTN, and chronic BL LE wounds presents complaining of persistent wounds and pain to the LEs. He states they have been present and nonhealing for the past 2+ months. Patient is known to the surgical service as RLE wounds were debrided [address] Langford. Wounds believed to be 2/2 to pressure related necrosis. Patient has palpable pulses LE BL and underwent CTA which was unremarkable for any significant vascular stenosis prior to procedure. Patient has been seeing podiatry for local wound care post operatively. PMH: as above PSH: L arm AVF and revision, pacemaker and defibulator, LE debridement Social: lives at home, denies toxic habits Review of Systems - Constitutional Constitutional: absent: Anorexia, Chills, Fever - EENT Eyes: absent: Blind Spots, Blurred Vision Ears: absent: Dizziness Nose/Mouth/Throat: absent: Bleeding Gums - Cardiovascular Cardiovascular: absent: Chest Pain, Dyspnea - Respiratory Respiratory: absent: Cough, Wheezing - Gastrointestinal Gastrointestinal: absent: Abdominal Pain - Genitourinary Genitourinary: absent: Hematuria, Pyuria - Musculoskeletal Musculoskeletal: Arthralgias. absent: Abnormal Gait - Integumentary Integumentary: Skin Ulcer, Wounds - Psychiatric Psychiatric: absent: Confusion, Depression - Endocrine Endocrine: absent: Polyphagia, Polyuria - Hematologic/Lymphatic Hematologic: absent: Easy Bleeding, Easy Bruising Past Patient History - Past Medical History & Family History Past Medical History?: Yes - Past Social History Smoking Status: Former Smoker - CARDIAC Hx Congestive Heart Failure: Yes Hx Hypertension: Yes - RENAL Hx Chronic Kidney Disease: Yes - MUSCULOSKELETAL/RHEUMATOLOGICAL Hx Falls: No - PSYCHIATRIC Hx Substance Use: No - SURGICAL HISTORY Hx Surgeries: Yes Other/Comment: LEFT ARM AV SHUNT. ICD INSERTED - ANESTHESIA Hx Anesthesia: Yes Hx Anesthesia Reactions: No Meds Allergies/Adverse Reactions: Allergies Allergy/AdvReac Type Severity Reaction Status Date / Time No Known Allergies Allergy Verified 01/06/19 15:56 - Medications Medications: Current Medications Acetaminophen (Tylenol 325mg Tab) 325 mg PO Q6 PRN PRN Reason: Pain, moderate (4-7) Apixaban (Eliquis) 2.5 mg PO BID [facility] Calcium Acetate (Phoslo) 667 mg PO TID [facility] Carvedilol (Coreg) 3.125 mg PO PRN PRN PRN Reason: see below Cinacalcet (Sensipar) 60 mg PO DAILY [facility] Gabapentin (Neurontin) 300 mg PO TID [facility] Home Med (Amino Acid/Protein/Vit C/Zinc [Prosource [place] Protein Liquid]) 946 ml PO DAILY [facility] Home Med (Dutasteride [Dutasteride]) 0.5 mg PO DAILY [facility] Home Med (Vit B Cplx C No.13/Folic Ac/D3 [Nephrocaps Qt Tablet]) 1 each PO D AILY [facility] Lactulose (Enulose) 20 gm PO DAILY [facility] Tramadol HCl (Ultram) 50 mg PO Q8H [facility] Physical Exam - Constitutional Appears: Non-toxic, Chronically Ill - Head Exam Head Exam: ATRAUMATIC, NORMOCEPHALIC - Eye Exam Eye Exam: EOMI, Normal appearance - ENT Exam ENT Exam: Mucous Membranes Moist - Respiratory Exam Respiratory Exam: NORMAL BREATHING PATTERN. absent: Respiratory Distress - Cardiovascular Exam Cardiovascular Exam: REGULAR RHYTHM. absent: Tachycardia - GI/Abdominal Exam GI & Abdominal Exam: Soft. absent: Tenderness - Extremities Exam Extremities exam: Positive for: pedal pulses present. Negative for: calf tenderness Additional comments: right ankle wound with good granulation tissue and tendon exposed, 4x5 cm ellipticle shaped lateral ankle. no george necrosis posterior heal wound with necrosis Results - Vital Signs Recent Vital Signs: Last Vital Signs Temp 97.6 F 01/06/19 19:14 Pulse 87 01/06/19 19:14 Resp 19 01/06/19 19:14 BP 130/80 01/06/19 19:14 Pulse Ox 100 01/06/19 19:14 - Labs Result Diagrams: 01/06/19 17:08 01/06/19 17:08 Labs: Laboratory Results - last 24 hr 01/06/19 01/06/19 17:08 17:08 WBC 5.4 RBC 3.94 L Hgb 11.1 L Hct 35.7 MCV 90.7 MCH 28.1 MCHC 31.0 L RDW 25.8 H Plt Count 148 D MPV 8.6 Neut % (Auto) 77.8 H Lymph % (Auto) 8.9 L [place] % (Auto) 8.5 Eos % (Auto) 2.9 Baso % (Auto) 1.9 Neut # (Auto) 4.2 Lymph # (Auto) 0.5 L [place] # (Auto) 0.5 Eos # (Auto) 0.2 Baso # (Auto) 0.1 Neutrophils % (Manual) 85 H Lymphocytes % (Manual) 7 L Monocytes % (Manual) 4 Eosinophils % (Manual) 4 Platelet Estimate Normal Anisocytosis (manual) Moderate Target Cells Slight Sodium 130 L Potassium 5.7 H Chloride 90 L Carbon Dioxide 28 Anion Gap 18 BUN 45 H Creatinine 5.1 H Est GFR ( Amer) 13 Est GFR (Non-Af Amer) 11 Random Glucose 122 H D Calcium 9.3 Total Bilirubin 1.0 AST 65 H D ALT 21 D Alkaline Phosphatase 99 Total Protein 7.1 Albumin 3.9 Globulin 3.3 Albumin/Globulin Ratio 1.2 Assessment & Plan - Assessment and Plan (Free Text) Assessment: 73 y/o male w/ poor healing LE pressure wounds Plan: -CTA from November w/o significant vascular stenosis -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 Primitivo Rogers PGY4
[2019-01-06] MEDS: Piperacillin/Tazobact 3.375 GM in Sodium Chloride 100 ML IVPB SCH ×2 (22:45→23:30)
[2019-01-07] MEDS: Piperacillin/Tazobact 3.375 GM in Sodium Chloride 100 ML IVPB SCH ×3 (06:15→13:47)
[2019-01-07 07:16] LABS: HEMOGLOBIN 10.8 g/dL (12.0-18.0); MEAN CELL VOLUME 92.2 fL (80.0-94.0); MEAN CORPUSCULAR HEMOGLOBIN 28.6 pg (27.0-31.0); MEAN CORPUSCULAR HGB CONC 31.1 g/dL (33.0-37.0); MEAN PLATELET VOLUME 8.5 fL (7.2-11.7); RBC 3.76 Mil/uL (4.40-5.90); RED CELL DISTRIBUTION WIDTH 25.5 % (11.5-14.5); WHITE BLOOD COUNT 5.4 K/uL (4.8-10.8)
[2019-01-07 08:00] LABS: ALB/GLOB RATIO 1.2 (1.0-2.1); ALBUMIN 3.5 g/dL (3.5-5.0); CALCIUM 9.5 mg/dl (8.6-10.4)
[2019-01-07] MEDS ORDERED: AMINO ACID PO SCH (10:00)
[2019-01-07] MEDS ORDERED: VIT C PO SCH (10:00)
[2019-01-07] MEDS ORDERED: ZINC PO SCH (10:00)
[2019-01-07] MEDS ORDERED: PROTEIN PO SCH (10:00)
[2019-01-07] MEDS: Multivitamin Vitamin B Complex (Nephro-Vite) Tab PO SCH (10:35)
[2019-01-07] MEDS: Paricalcitol 2 mcg/ml Inj IV SCH (12:52)
--- NOTE | 2019-01-07 16:32 | CP.PCM.PN ---
Subjective - Date & Time of Evaluation Date of Evaluation: 01/07/19 Time of Evaluation: 16:29 - Subjective Subjective: Podiatry Consult Note: Dr. Stein 73 year old male was seen and evaluated with attending Dr. Stein for b/l lower extremity wounds and pain.He is AAO x 3 and NAD at time of visit. Reports that he has little pain on the RLE. Denies any further pedal complaints. Denies any recent N/V/F/C/CP/SOB/D. Objective - Vital Signs/Intake and Output Vital Signs (last 24 hours): Temp Pulse Resp BP Pulse Ox 98.3 F 92 H 20 145/86 95 01/07/19 15:48 01/07/19 15:48 01/07/19 15:48 01/07/19 15:48 01/07/19 15:48 Intake and Output: 01/07/19 01/07/19 06:59 18:59 Intake Total 380 240 Balance 380 240 - Medications Medications: Current Medications Acetaminophen (Tylenol 325mg Tab) 325 mg PO Q6 PRN PRN Reason: Pain, moderate (4-7) Last Admin: 01/07/19 00:33 Dose: 325 mg Apixaban (Eliquis) 2.5 mg PO BID [facility] Last Admin: 01/07/19 10:35 Dose: Not Given Calcium Acetate (Phoslo) 667 mg PO TID [facility] Last Admin: 01/07/19 13:46 Dose: Not Given Carvedilol (Coreg) 3.125 mg PO PRN PRN PRN Reason: see below Cinacalcet (Sensipar) 60 mg PO DAILY [facility] Last Admin: 01/07/19 10:35 Dose: Not Given Finasteride (Proscar) 5 mg PO DAILY [facility] Last Admin: 01/07/19 10:35 Dose: Not Given Gabapentin (Neurontin) 300 mg PO TID [facility] Last Admin: 01/07/19 13:46 Dose: Not Given Piperacillin Sod/Tazobactam (Sod 3.375 gm/ Sodium Chloride) 100 mls @ 200 mls/hr IVPB Q8H [facility]; Protocol Last Admin: 01/07/19 13:47 Dose: Not Given Vancomycin HCl 1 gm/ Sodium (Chloride) 250 mls @ 166.7 mls/hr IVPB MWF [facility]; Protocol Last Admin: 01/07/19 11:20 Dose: 166.7 mls/hr Lactulose (Enulose) 20 gm PO DAILY [facility] Last Admin: 01/07/19 10:35 Dose: Not Given Paricalcitol (Zemplar) 4 mcg IV MWF [facility] Last Admin: 01/07/19 12:52 Dose: 4 mcg Tramadol HCl (Ultram) 50 mg PO TID PRN PRN Reason: Pain,SEVERE 8-10 Last Admin: 01/07/19 15:14 Dose: 50 mg Vitamin B Complex/Vit C/Folic Acid (Nephro-Vivian) 1 tab PO DAILY [facility] Last Admin: 01/07/19 10:35 Dose: Not Given - Labs Labs: 01/07/19 07:04 01/07/19 07:04 - Constitutional Appears: Well, Non-toxic, No Acute Distress - Extremities Exam Additional comments: Lower Extremity Focused Exam Vasc: DP/PT pulses faintly palpable 1/4 b/l. Skin temperature warm to warm from proximal to distal WNL. CFT < 3 seconds to all digits b/l. Minimal, diffuse edema noted to b/l lower extremities Neuro: Epicritic and protective sensation grossly intact b/l Derm: RLE - 4 cm x 3 cm x 0.3 cm ulceration noted to lateral lower leg. Wound base is fibrogranular in nature. No erythema, malodor, drainage, tracking, tunneling or undermining. No evidence of infection appreciated. Two 1 cm x 1 cm x 0.1 cm ulcerations noted along length of achilles tendon approximately 2 and 4 cm proximal to its insertion site. Achilles tendon vs. paratenon exposed in both ulceration sites. No erythema, malodor, drainage, tracking, tunneling or undermining. No evidence of infection appreciated. LLE - 0.1 cm x 0.1 cm x 0.1 cm noted to posterior heel. No erythema, malodor, drainage, tracking, tunneling or undermining. No evidence of infection appreciated. Multiple areas of hyperpigmentation noted to b/l lower extremities MSK: Pain on palpation to all ulceration sites. Diffuse pain to b/l LE R>L. No gross deformities appreciated - Neurological Exam Neurological Exam: Alert, Awake, Oriented x3 - Psychiatric Exam Psychiatric exam: Normal Affect, Normal Mood Assessment and Plan - Assessment and Plan (Free Text) Assessment: 73 year male seen and evaluated for b/l lower extremity wounds and pain. Plan: Patient seen and evaluated with Dr. Stein Afebrile, absent leukocytosis B/l ankle xrays: Right ankle - Deep ulcer without adjacent underlying radiographic evidence of acute osteomyelitis. Left ankle - Soft tissue swelling without acute articular or osseous abnormality. Infectious disease consult - recommendations appreciated Vascular consult, recs appreciated Wound culture from lateral right leg taken, f/u results Right leg wounds dressed with Xeroform, DSD Left leg wound dressed with DSD Multipodus boots to be worn in bed at all times Per Dr. Stein, wound debridement scheduled for tomorrow morning 7:30 AM MEDICAL OPTIMIZATION NEEDED AT THIS TIME Podiatry will continue to follow while patient in house
--- NOTE | 2019-01-07 16:37 | CP.PCM.CON ---
History of Present Illness - History of Present Illness History of Present Illness: 73 y/o M w/ PMHx of ESRD on HD, HTN, CHF, PVD, CAD was BIBA from rehab center for worsening leg pain.\ Pt has B/L LE chronic wounds that failed outpaitnet therapy for more than a month. Pt was directed to the ED for admission and more aggressive therapy. Currently, pt denies LE pain, though does state that it's intermittent. Pt also denies F/C, CP, SOB, N/V, D/C. PMHx: ESRD ON HD TTS ( [facility] MWF ) LT AVF +VE BRUIT, LT NECK IJV CATHETHER IN PLACE , HAS AICD /PM RT UPPER CHEST, CAD HTN,PVD,CHF PSHx: L AVF SHx: former tobacco, denies EtOH, drug use FHx: noncontributory PMH ESRD OA HTN CHF PVD NKDA Review of Systems - Review of Systems All systems: reviewed and no additional remarkable complaints except - Constitutional Constitutional: As Per HPI - EENT Eyes: absent: As Per HPI, Blind Spots, Blurred Vision, Change in Vision, Decreased Night Vision, Diplopia, Discharge, Dry Eye, Exophthalmos, Floaters, Irritation, Itchy Eyes, Loss of Peripheral Vision, Pain, Photophobia, Requires Corrective Lenses, Sees Flashes, Spots in Vision, Tunnel Vision, Other Visual Disturbances, Loss of Vision, Other Ears: absent: As Per HPI, Decreased Hearing, Ear Discharge, Ear Pain, Tinnitus, Abnormal Hearing, Disequilibrium, Dizziness, Other Nose/Mouth/Throat: absent: As Per HPI, Epistaxis, Nasal Congestion, Nasal Discharge, Nasal Obstruction, Nasal Trauma, Nose Pain, Post Nasal Drip, Sinus Pain, Sinus Pressure, Bleeding Gums, Change in Voice, Dental Pain, Dry Mouth, Dysphagia, Halitosis, Hoarsness, Lip Swelling, Mouth Lesions, Mouth Pain, Odynophagia, Sore Throat, Throat Swelling, Tongue Swelling, Facial Pain, Neck Pain, Neck Mass, Other - Cardiovascular Cardiovascular: As Per HPI - Respiratory Respiratory: absent: As Per HPI, Cough, Dyspnea, Hemoptysis, Dyspnea on Exertion, Wheezing, Snoring, Stridor, Pain on Inspiration, Chest Congestion, Excessive Mucous Production, Change in Mucous Color, Pain with Coughing, Other - Gastrointestinal Gastrointestinal: absent: As Per HPI, Abdominal Pain, Belching, Bloating, Change in Bowel Habits, Change in Stool Character, Coffee Ground Emesis, Constipation, Cramping, Diarrhea, Dyspepsia, Dysphagia, Early Satiety, Excessive Flatus, Fecal Incontinence, Heartburn, Hematemesis, Hematochezia, Loose Stools, Melena, Nausea, Odynophagia, Temesmus, Vomiting, Other - Genitourinary Genitourinary: absent: As Per HPI, Change in Urinary Stream, Difficulty Urinating, Dysuria, Flank Pain, Hematuria, Pyuria, Nocturia, Urinary Incontinence, Urinary Frequency, Urinary Hesitance, Urinary Urgency, Voiding Freq/Small Amts, Freq UTI, Hx Renal/Bladder Calculi, Hx /Renal Surgery, Bladder Distension, Other - Musculoskeletal Musculoskeletal: As Per HPI - Integumentary Integumentary: As Per HPI, Skin Pain, Wounds - Neurological Neurological: absent: As Per HPI, Abnormal Gait, Abnormal Hearing, Abnormal Movements, Abnormal Speech, Behavioral Changes, Burning Sensations, Confusion, Convulsions, Disequilibrium, Dizziness, Numbness, Focal Weakness, Frequent Falls, Headaches, Lack of Coordination, Loss of Vision, Memory Loss, Paresthesias, Radicular Pain, Restless Legs, Sensory Deficit, Syncope, Tingling, Tremor, Vertigo, Weakness, Other Visual Disturbances, Other - Psychiatric Psychiatric: absent: As Per HPI, Abnormal Sleep Pattern, Anhedonia, Anxiety, Auditory Hallucinations, Behavioral Changes, Change in Appetite, Change in Libido, Confusion, Depression, Difficulty Concentrating, Hallucinations, Homicidal Ideation, Hopelessness, Irritability, Memory Loss, Mood Swings, Panic Attacks, Paranoia, Suicidal Ideation, Visual Hallucinations, Tactile Hallucinations, Other - Endocrine Endocrine: absent: As Per HPI, Change in Body Appearance, Change in Libido, Cold Intolorance, Deepening of Voice, Excessive Sweating, Fatigue, Flushing, Heat Intolorance, Increase in Ring/Shoe/Hat Size, Palpitations, Polydipsia, Polyphagia, Polyuria, Other - Hematologic/Lymphatic Hematologic: absent: As Per HPI, Easy Bleeding, Easy Bruising, Lymphadenopathy, Other Past Patient History - Past Medical History & Family History Past Medical History?: Yes - Past Social History Smoking Status: Former Smoker - CARDIAC Hx Congestive Heart Failure: Yes Hx Hypertension: Yes - RENAL Hx Chronic Kidney Disease: Yes - MUSCULOSKELETAL/RHEUMATOLOGICAL Hx Falls: No - PSYCHIATRIC Hx Substance Use: No - SURGICAL HISTORY Hx Surgeries: Yes Other/Comment: LEFT ARM AV SHUNT. ICD INSERTED - ANESTHESIA Hx Anesthesia: Yes Hx Anesthesia Reactions: No Meds Allergies/Adverse Reactions: Allergies Allergy/AdvReac Type Severity Reaction Status Date / Time No Known Allergies Allergy Verified 01/06/19 15:56 - Medications Medications: Current Medications Acetaminophen (Tylenol 325mg Tab) 325 mg PO Q6 PRN PRN Reason: Pain, moderate (4-7) Last Admin: 01/07/19 00:33 Dose: 325 mg Apixaban (Eliquis) 2.5 mg PO BID [facility] Last Admin: 01/07/19 10:35 Dose: Not Given Calcium Acetate (Phoslo) 667 mg PO TID [facility] Last Admin: 01/07/19 13:46 Dose: Not Given Carvedilol (Coreg) 3.125 mg PO PRN PRN PRN Reason: see below Cinacalcet (Sensipar) 60 mg PO DAILY [facility] Last Admin: 01/07/19 10:35 Dose: Not Given Finasteride (Proscar) 5 mg PO DAILY [facility] Last Admin: 01/07/19 10:35 Dose: Not Given Gabapentin (Neurontin) 300 mg PO TID [facility] Last Admin: 01/07/19 13:46 Dose: Not Given Piperacillin Sod/Tazobactam (Sod 3.375 gm/ Sodium Chloride) 100 mls @ 200 mls/hr IVPB Q8H [facility]; Protocol Last Admin: 01/07/19 13:47 Dose: Not Given Vancomycin HCl 1 gm/ Sodium (Chloride) 250 mls @ 166.7 mls/hr IVPB MWF [facility]; Protocol Last Admin: 01/07/19 11:20 Dose: 166.7 mls/hr Lactulose (Enulose) 20 gm PO DAILY [facility] Last Admin: 01/07/19 10:35 Dose: Not Given Paricalcitol (Zemplar) 4 mcg IV MWF [facility] Last Admin: 01/07/19 12:52 Dose: 4 mcg Tramadol HCl (Ultram) 50 mg PO TID PRN PRN Reason: Pain,SEVERE 8-10 Last Admin: 01/07/19 15:14 Dose: 50 mg Vitamin B Complex/Vit C/Folic Acid (Nephro-Vivian) 1 tab PO DAILY [facility] Last Admin: 01/07/19 10:35 Dose: Not Given Physical Exam - Constitutional Appears: Non-toxic, No Acute Distress, Chronically Ill - Head Exam Head Exam: ATRAUMATIC, NORMOCEPHALIC - Eye Exam Eye Exam: PERRL. absent: Scleral icterus Pupil Exam: NORMAL ACCOMODATION - ENT Exam ENT Exam: Mucous Membranes Dry, Normal External Ear Exam - Neck Exam Neck exam: Negative for: Lymphadenopathy - Respiratory Exam Respiratory Exam: Decreased Breath Sounds, Clear to Auscultation Bilateral, Prolonged Expiratory Phase - Cardiovascular Exam Cardiovascular Exam: REGULAR RHYTHM, +S1, +S2 - GI/Abdominal Exam GI & Abdominal Exam: Diminished Bowel Sounds, Soft. absent: Tenderness - Rectal Exam Rectal Exam: Deferred - Exam Exam: NORMAL INSPECTION - Extremities Exam Extremities exam: Positive for: pedal edema Additional comments: Vasc: DP/PT pulses faintly palpable 1/4 b/l. Skin temperature warm to warm from proximal to distal WNL. CFT < 3 seconds to all digits b/l. Minimal, diffuse edema noted to b/l lower extremities Neuro: Epicritic and protective sensation grossly intact b/l Derm: RLE - 4 cm x 3 cm x 0.3 cm ulceration noted to lateral lower leg. Wound base is fibrogranular in nature. No erythema, malodor, drainage, tracking, tunneling or undermining. No evidence of infection appreciated. Two 1 cm x 1 cm x 0.1 cm ulcerations noted along length of achilles tendon approximately 2 and 4 cm proximal to its insertion site. Achilles tendon vs. paratenon exposed in both ulceration sites. No erythema, malodor, drainage, tracking, tunneling or undermining. No evidence of infection appreciated. LLE - 0.1 cm x 0.1 cm x 0.1 cm noted to posterior heel. No erythema, malodor, drainage, tracking, tunneling or undermining. No evidence of infection appreciated. Multiple areas of hyperpigmentation noted to b/l lower extremities MSK: Pain on palpation to all ulceration sites. Diffuse pain to b/l LE R>L. No gross deformities appreciated - Back Exam Back exam: absent: CVA tenderness (L), CVA tenderness (R), paraspinal tenderness - Neurological Exam Neurological exam: Alert, CN II-XII Intact, Oriented x3, Reflexes Normal - Psychiatric Exam Psychiatric exam: Depressed - Skin Skin Exam: Dry Additional comments: wounds to both lower extremities decreased pulses Results - Vital Signs Recent Vital Signs: Last Vital Signs Temp 98.3 F 01/07/19 15:48 Pulse 92 H 01/07/19 15:48 Resp 20 01/07/19 15:48 BP 145/86 01/07/19 15:48 Pulse Ox 95 01/07/19 15:48 - Labs Result Diagrams: 01/07/19 07:04 01/07/19 07:04 Labs: Laboratory Results - last 24 hr 01/06/19 01/06/19 01/07/19 17:08 17:08 07:04 WBC 5.4 5.4 RBC 3.94 L 3.76 L Hgb 11.1 L 10.8 L Hct 35.7 34.6 L MCV 90.7 92.2 MCH 28.1 28.6 MCHC 31.0 L 31.1 L RDW 25.8 H 25.5 H Plt Count 148 D 153 MPV 8.6 8.5 Neut % (Auto) 77.8 H Lymph % (Auto) 8.9 L [place] % (Auto) 8.5 Eos % (Auto) 2.9 Baso % (Auto) 1.9 Neut # (Auto) 4.2 Lymph # (Auto) 0.5 L [place] # (Auto) 0.5 Eos # (Auto) 0.2 Baso # (Auto) 0.1 Neutrophils % (Manual) 85 H Lymphocytes % (Manual) 7 L Monocytes % (Manual) 4 Eosinophils % (Manual) 4 Platelet Estimate Normal Anisocytosis (manual) Moderate Target Cells Slight Sodium 130 L Potassium 5.7 H Chloride 90 L Carbon Dioxide 28 Anion Gap 18 BUN 45 H Creatinine 5.1 H Est GFR ( Amer) 13 Est GFR (Non-Af Amer) 11 Random Glucose 122 H D Calcium 9.3 Phosphorus Total Bilirubin 1.0 AST 65 H D ALT 21 D Alkaline Phosphatase 99 Total Protein 7.1 Albumin 3.9 Globulin 3.3 Albumin/Globulin Ratio 1.2 01/07/19 07:04 WBC RBC Hgb Hct MCV MCH MCHC RDW Plt Count MPV Neut % (Auto) Lymph % (Auto) [place] % (Auto) Eos % (Auto) Baso % (Auto) Neut # (Auto) Lymph # (Auto) [place] # (Auto) Eos # (Auto) Baso # (Auto) Neutrophils % (Manual) Lymphocytes % (Manual) Monocytes % (Manual) Eosinophils % (Manual) Platelet Estimate Anisocytosis (manual) Target Cells Sodium 131 L Potassium 4.6 Chloride 89 L Carbon Dioxide 29 Anion Gap 18 BUN 48 H Creatinine 5.8 H Est GFR ( Amer) 12 Est GFR (Non-Af Amer) 10 Random Glucose 128 H Calcium 9.5 Phosphorus 4.4 Total Bilirubin 0.5 AST 25 ALT 24 Alkaline Phosphatase 108 Total Protein 6.2 L Albumin 3.5 Globulin 2.8 Albumin/Globulin Ratio 1.2 Assessment & Plan (1) Wound of lower extremity Status: Acute (2) ESRD (end stage renal disease) on dialysis Status: Acute (3) Hypertension Status: Acute - Assessment and Plan (Free Text) Assessment: chronic leg ulcers- in a 73v yo male with PVD 'needs vascular eval cultures sent empiric IV antibiotics started after cultures sent
--- NOTE | 2019-01-07 16:42 | CP.PCM.CON ---
History of Present Illness - History of Present Illness History of Present Illness: pt is seen and examined, full consult is dictated #[id number] s/p hd today, had a uf 3.0 lit Past Patient History - Past Medical History & Family History Past Medical History?: Yes - Past Social History Smoking Status: Former Smoker - CARDIAC Hx Congestive Heart Failure: Yes Hx Hypertension: Yes - RENAL Hx Chronic Kidney Disease: Yes - MUSCULOSKELETAL/RHEUMATOLOGICAL Hx Falls: No - PSYCHIATRIC Hx Substance Use: No - SURGICAL HISTORY Hx Surgeries: Yes Other/Comment: LEFT ARM AV SHUNT. ICD INSERTED - ANESTHESIA Hx Anesthesia: Yes Hx Anesthesia Reactions: No Meds Allergies/Adverse Reactions: Allergies Allergy/AdvReac Type Severity Reaction Status Date / Time No Known Allergies Allergy Verified 01/06/19 15:56 - Medications Medications: Current Medications Acetaminophen (Tylenol 325mg Tab) 325 mg PO Q6 PRN PRN Reason: Pain, moderate (4-7) Last Admin: 01/07/19 00:33 Dose: 325 mg Apixaban (Eliquis) 2.5 mg PO BID [facility] Last Admin: 01/07/19 10:35 Dose: Not Given Calcium Acetate (Phoslo) 667 mg PO TID [facility] Last Admin: 01/07/19 13:46 Dose: Not Given Carvedilol (Coreg) 3.125 mg PO PRN PRN PRN Reason: see below Cinacalcet (Sensipar) 60 mg PO DAILY [facility] Last Admin: 01/07/19 10:35 Dose: Not Given Finasteride (Proscar) 5 mg PO DAILY [facility] Last Admin: 01/07/19 10:35 Dose: Not Given Gabapentin (Neurontin) 300 mg PO TID [facility] Last Admin: 01/07/19 13:46 Dose: Not Given Vancomycin HCl 1 gm/ Sodium (Chloride) 250 mls @ 166.7 mls/hr IVPB [facility]; Protocol Last Admin: 01/07/19 11:20 Dose: 166.7 mls/hr Gentamicin Sulfate/Sodium Chloride (Gentamicin 80mg/100ml Ns) 80 mg in 100 mls @ 100 mls/hr IVPB [facility]; Protocol Lactulose (Enulose) 20 gm PO DAILY [facility] Last Admin: 01/07/19 10:35 Dose: Not Given Paricalcitol (Zemplar) 4 mcg IV MWF [facility] Last Admin: 01/07/19 12:52 Dose: 4 mcg Tramadol HCl (Ultram) 50 mg PO TID PRN PRN Reason: Pain,SEVERE 8-10 Last Admin: 01/07/19 15:14 Dose: 50 mg Vitamin B Complex/Vit C/Folic Acid (Nephro-Vivian) 1 tab PO DAILY [facility] Last Admin: 01/07/19 10:35 Dose: Not Given Results - Vital Signs Recent Vital Signs: Last Vital Signs Temp 98.3 F 01/07/19 15:48 Pulse 92 H 01/07/19 15:48 Resp 20 01/07/19 15:48 BP 145/86 01/07/19 15:48 Pulse Ox 95 01/07/19 15:48 - Labs Result Diagrams: 01/07/19 07:04 01/07/19 07:04 Labs: Laboratory Results - last 24 hr 01/06/19 01/06/19 01/07/19 17:08 17:08 07:04 WBC 5.4 5.4 RBC 3.94 L 3.76 L Hgb 11.1 L 10.8 L Hct 35.7 34.6 L MCV 90.7 92.2 MCH 28.1 28.6 MCHC 31.0 L 31.1 L RDW 25.8 H 25.5 H Plt Count 148 D 153 MPV 8.6 8.5 Neut % (Auto) 77.8 H Lymph % (Auto) 8.9 L [place] % (Auto) 8.5 Eos % (Auto) 2.9 Baso % (Auto) 1.9 Neut # (Auto) 4.2 Lymph # (Auto) 0.5 L [place] # (Auto) 0.5 Eos # (Auto) 0.2 Baso # (Auto) 0.1 Neutrophils % (Manual) 85 H Lymphocytes % (Manual) 7 L Monocytes % (Manual) 4 Eosinophils % (Manual) 4 Platelet Estimate Normal Anisocytosis (manual) Moderate Target Cells Slight Sodium 130 L Potassium 5.7 H Chloride 90 L Carbon Dioxide 28 Anion Gap 18 BUN 45 H Creatinine 5.1 H Est GFR ( Amer) 13 Est GFR (Non-Af Amer) 11 Random Glucose 122 H D Calcium 9.3 Phosphorus Total Bilirubin 1.0 AST 65 H D ALT 21 D Alkaline Phosphatase 99 Total Protein 7.1 Albumin 3.9 Globulin 3.3 Albumin/Globulin Ratio 1.2 01/07/19 07:04 WBC RBC Hgb Hct MCV MCH MCHC RDW Plt Count MPV Neut % (Auto) Lymph % (Auto) [place] % (Auto) Eos % (Auto) Baso % (Auto) Neut # (Auto) Lymph # (Auto) [place] # (Auto) Eos # (Auto) Baso # (Auto) Neutrophils % (Manual) Lymphocytes % (Manual) Monocytes % (Manual) Eosinophils % (Manual) Platelet Estimate Anisocytosis (manual) Target Cells Sodium 131 L Potassium 4.6 Chloride 89 L Carbon Dioxide 29 Anion Gap 18 BUN 48 H Creatinine 5.8 H Est GFR ( Amer) 12 Est GFR (Non-Af Amer) 10 Random Glucose 128 H Calcium 9.5 Phosphorus 4.4 Total Bilirubin 0.5 AST 25 ALT 24 Alkaline Phosphatase 108 Total Protein 6.2 L Albumin 3.5 Globulin 2.8 Albumin/Globulin Ratio 1.2
[2019-01-08 05:49] LABS: BASO # 0.1 K/uL (0.0-0.2); BASO % 1.6 % (0.0-2.0); EOS # 0.1 K/uL (0.0-0.7); EOS % 1.5 % (0.0-4.0); HEMOGLOBIN 9.7 g/dL (12.0-18.0); LYMPH # 0.5 K/uL (1.0-4.3); LYMPH % 9.5 % (20.0-40.0); MEAN CELL VOLUME 92.6 fL (80.0-94.0); MEAN CORPUSCULAR HEMOGLOBIN 28.4 pg (27.0-31.0); MEAN CORPUSCULAR HGB CONC 30.7 g/dL (33.0-37.0); MEAN PLATELET VOLUME 8.4 fL (7.2-11.7); MONO # 0.5 K/uL (0.0-0.8); MONO % 9.1 % (0.0-10.0); NEUT # 4.2 K/uL (1.8-7.0); NEUT % 78.3 % (50.0-75.0); NRBC % 0.2 % (0.0-2.0); PLATELET COUNT 136 K/uL (130-400); WHITE BLOOD COUNT 5.3 K/uL (4.8-10.8)
[2019-01-08 06:10] LABS: INR 1.3; PROTHROMBIN TIME 14.3 SECONDS (9.7-12.2)
[2019-01-08 06:27] LABS: CALCIUM 9.7 mg/dl (8.6-10.4)
--- NOTE | 2019-01-08 07:17 | CON ---
DATE: 01/07/2019 RENAL CONSULTATION LOCATION: The patient is located in room 368, bed A. REQUESTED BY: Luis Manuel Staton MD REASON FOR RENAL CONSULTATION: End-stage renal disease, for continuation of the hemodialysis, and also bilateral leg ulcers. HISTORY OF PRESENT ILLNESS: Mr. Pandey is a 73-year-old elderly male, very pleasant with a past medical history significant for longstanding hypertension, diabetes, paroxysmal AFib, cardiomyopathy, CHF, end-stage renal disease, peripheral vascular disease and also bilateral leg ulcers, who was recently admitted to [facility] for debridement of the leg ulcers and subsequently, the patient was transferred to [facility]. From there, the patient was followed by Dr. Stein and who advised the patient to come to the hospital again for necrotic Achilis tendon on the right side and for possible debridement of the ulcer. The patient denies any chest pain or palpitation. Denies any fever or cough. Denies any abdominal pain. No nausea, vomiting, diarrhea. The patient has complaints of swelling of the legs and pain in the legs. PAST MEDICAL HISTORY: Significant for longstanding hypertension, diabetes, coronary artery disease, CHF, cardiomyopathy, paroxysmal AFib and questionable peripheral vascular disease and bilateral leg ulcers. PAST SURGICAL HISTORY: Status post AV fistula ligation for the bleeding and also status post new AV graft placement about a year ago, multiple angioplasties and also coronary artery disease and status post stent placement. ALLERGIES: NO KNOWN DRUG ALLERGIES. SOCIAL HISTORY: Denies any smoking, alcohol or drugs. PERSONAL HISTORY: He is and he has a very supportive . His son is with complications of AV fistula bleeding who was on dialysis. REVIEW OF SYSTEMS: Significant for nonhealing bilateral leg ulcers and also edema of the legs. All other review of systems are reviewed and are negative. PHYSICAL EXAMINATION: VITAL SIGNS: As follows: Blood pressure 145/86, pulse 92, respirations 20 and temperature 98.3, saturation 95%. Height 5 feet 9 inches, weight is 159 pounds. GENERAL: Mr. Pandey is 73 years old elderly male, moderately built, moderately nourished, not in acute distress. HEENT: Pupils normal, reactive to light and accommodation. Conjunctivae pink. Sclerae anicteric. Tongue is moist. Trachea is midline. LUNGS: Symmetric on both sides. Bilateral breath sounds present. Bilateral basal crackles present. CARDIOVASCULAR SYSTEM: [place] at the fifth intercostal space, midclavicular line. S1, S2 audible. No murmur or gallop. ABDOMEN: Normal in appearance. Soft, tympanitic. No guarding, no rigidity. No hepatosplenomegaly. CENTRAL NERVOUS SYSTEM: The patient is alert, awake and oriented x3. Nonfocal neuro examination. Cranial nerves II through XII grossly intact. Sensory and motor system is within normal limits. EXTREMITIES: No cyanosis, no clubbing. The patient has about 2+ edema in both lower extremities and also the patient has bilateral leg ulcers. The patient also has dressing in both legs. CURRENT MEDICATIONS: Include as follows: Coreg 3.125 mg p.o. p.r.n. and Eliquis on hold, lactulose 20 g p.o. daily and gentamicin 80 mg three times a week and Nephro-Vivian 1 tablet daily, Neurontin 300 mg p.o. t.i.d. and PhosLo 667 mg p.o. t.i.d. and Proscar 5 mg p.o. daily, Sensipar 60 mg p.o. daily and Tylenol and tramadol 50 mg p.o. t.i.d. and vancomycin 1 g three times a week and Zemplar 4 mcg IV three times a week. LABORATORY DATA: Includes as follows: As of 01/06/2019, WBC 5.4, hemoglobin 11.1, hematocrit 35.7, platelets 148 and sodium 140, potassium 5.7, chloride 90, CO2 of 28, BUN 45, creatinine 5.1, glucose 122 and calcium 9.3 and total bili 1.08, AST 65, ALT 21, alkaline phosphatase 99, total protein 7.9, albumin is 3.9. As of 01/07/2019, WBC 5.4, hemoglobin 10.8, hematocrit is 34.6, platelets 153. Sodium 131, potassium 4.6, chloride 89, CO2 of 29, BUN 48, creatinine 5.8, glucose 128, calcium 9.5 and phosphorus 4.4 and total bili 0.5, AST 25, ALT 24, alkaline phosphatase 108, total protein 6.1, albumin 3.5. Other reports, x-ray of the ankle as of 01/06/2019, impression, right ankle deep ulcer without adjacent underlying radiographic evidence of acute osteomyelitis. In the left ankle, soft tissue swelling without acute articular or osseous abnormality. ASSESSMENT AND PLAN: In summary, Mr. Pandey is a 73-year-old elderly male with past medical history significant for longstanding hypertension, diabetes, congestive heart failure, paroxysmal atrial fibrillation, cardiomyopathy, end-stage renal disease, questionable peripheral vascular disease with bilateral lower extremity ulcers status post recent debridement about few weeks ago, was sent from the [facility] with Rt Achilis tendon necrosis and for possible debridement. 1. End-stage renal disease. Continue hemodialysis three times a week, Saturday, Saturday, and Saturday. The patient underwent hemodialysis today, had ultrafiltration about 3 liters, tolerated very well. 2. Hypertension. Continue his current medications, Coreg 3.125 mg by mouth as needed. 3. Secondary hyperparathyroidism. Continue Sensipar and calcium acetate. 4. Bilateral leg ulcers. Continue vancomycin and gentamicin as per the primary team and Dr. Stein. The patient is scheduled for possible debridement tomorrow as per Dr. Stein. Case discussed with Dr. Stein in rounds. Thank you for allowing me to participate in your patient's care. Gomez Vu MD MTDCalvin
[2019-01-08] MEDS ORDERED: Lidocaine 2% MPF (5 ml) Inj ONE (07:30)
[2019-01-08] MEDS ORDERED: Bupivacaine HCl 0.5% PF (10 ml) Inj ONE (07:30)
[2019-01-08] MEDS ORDERED: ceFAZolin 1 gm in NS 0 GM/0 ML BAG IVPB ONE (07:30)
[2019-01-08] MEDS ORDERED: Midazolam 2 MG/2 ML VIAL ONE (07:49)
[2019-01-08] MEDS ORDERED: Propofol 10 mg/ml Inj (20 ML) ONE (07:50)
--- NOTE | 2019-01-08 09:03 | PCM.SURG1 ---
Surgeon's Initial Post Op Note - Surgeon's Notes Surgeon: Dr. Stein DPM Publications Inspector: Dr. Erika Rodriguez PGY1 Type of Anesthesia: IV Sedation, Local Pre-Operative Diagnosis: Right ankle non-healing ulceration Operative Findings: See Dictation. I: 20cc of 1:1 mix 0.5% marcaine plain and 2% lidocaine plain. M: 1/4 inch packing, 3-0 Nylon Post-Operative Diagnosis: Same Operation Performed: Right ankle wound debridement with debridement of necrotic achilles tendon Specimen/Specimens Removed: None Estimated Blood Loss: EBL {In ML}: 30 Blood Products Given: N/A Drains Used: No Drains Post-Op Condition: Good Date of Surgery/Procedure: 01/08/19 Time of Surgery/Procedure: 09:02
[2019-01-08] MEDS ORDERED: Oxycodone/Acetaminophen 5/325 mg Tab PO PRN (09:04)
[2019-01-08] MEDS ORDERED: HYDROmorphone 0.5 mg/0.5 ml ISec IVP PRN (09:14)
[2019-01-08] MEDS ORDERED: Sodium Chloride 0.9% 1,000 ML IV SCH (09:15)
[2019-01-08 09:38] LABS: LYMPHOCYTE 6 % (20-40); MONOCYTE 4 % (0-10); NEUTROPHIL 90 % (50-75); TOTAL CELLS COUNTED 100
[2019-01-08 09:39] LABS: HYPOCHROMIC SLIGHT; OVALOCYTES SLIGHT; PLATELET ESTIMATE NORMAL (NORMAL); POLYCHROMIC SLIGHT; TEARDROP CELLS SLIGHT
[2019-01-08 09:40] LABS: ANISOCYTOSIS SLIGHT
[2019-01-08 09:41] LABS: TARGET CELLS SLIGHT
[2019-01-08] MEDS: Multivitamin Vitamin B Complex (Nephro-Vite) Tab PO SCH (10:18)
--- NOTE | 2019-01-08 11:28 | CP.PCM.PN ---
Subjective - Date & Time of Evaluation Date of Evaluation: 01/08/19 Time of Evaluation: 11:28 - Subjective Subjective: pt is seen and examined, follow up consult is dictated #[id number] for hd in am, s/p debridement tody , rt leg Objective - Vital Signs/Intake and Output Vital Signs (last 24 hours): Temp Pulse Resp BP Pulse Ox 98.2 F 75 13 122/74 100 01/08/19 10:15 01/08/19 10:15 01/08/19 10:15 01/08/19 10:15 01/08/19 10:15 Intake and Output: 01/08/19 01/08/19 06:59 18:59 Intake Total 120 125 Balance 120 125 - Medications Medications: Current Medications Acetaminophen (Tylenol 325mg Tab) 325 mg PO Q6 PRN PRN Reason: Pain, Mild (1-3) Apixaban (Eliquis) 2.5 mg PO BID [facility] Last Admin: 01/07/19 17:53 Dose: Not Given Calcium Acetate (Phoslo) 667 mg PO TID [facility] Last Admin: 01/08/19 10:41 Dose: 667 mg Carvedilol (Coreg) 3.125 mg PO PRN PRN PRN Reason: see below Last Admin: 01/08/19 06:30 Dose: 3.125 mg Cinacalcet (Sensipar) 60 mg PO DAILY [facility] Last Admin: 01/08/19 10:41 Dose: 60 mg Finasteride (Proscar) 5 mg PO DAILY [facility] Last Admin: 01/08/19 10:41 Dose: 5 mg Gabapentin (Neurontin) 100 mg PO TID [facility] Last Admin: 01/08/19 10:41 Dose: 100 mg Vancomycin HCl 1 gm/ Sodium (Chloride) 250 mls @ 166.7 mls/hr IVPB [facility] [place]; Protocol Last Admin: 01/07/19 11:20 Dose: 166.7 mls/hr Gentamicin Sulfate/Sodium Chloride (Gentamicin 80mg/100ml Ns) 80 mg in 100 mls @ 100 mls/hr IVPB [facility] [place]; Protocol Lactulose (Enulose) 20 gm PO DAILY [facility] Last Admin: 01/08/19 10:41 Dose: 20 gm Oxycodone/Acetaminophen (Percocet 5/325 Mg Tab) 1 tab PO Q4H PRN PRN Reason: Pain, moderate (4-7) Stop: 01/11/19 09:05 Oxycodone/Acetaminophen (Percocet 5/325 Mg Tab) 2 tab PO Q4H PRN PRN Reason: Pain, severe (8-10) Stop: 01/11/19 09:05 Paricalcitol (Zemplar) 4 mcg IV MWF [facility] Last Admin: 01/07/19 12:52 Dose: 4 mcg Vitamin B Complex/Vit C/Folic Acid (Nephro-Vivian) 1 tab PO DAILY [facility] Last Admin: 01/08/19 10:18 Dose: Not Given - Labs Labs: 01/08/19 05:37 01/08/19 05:37 PT 14.3 SECONDS (9.7-12.2) H 01/08/19 05:37 INR 1.3 01/08/19 05:37 APTT 39 SECONDS (21-34) H 01/08/19 05:37
--- NOTE | 2019-01-08 22:37 | PN ---
DATE: 01/08/2019 FOLLOWUP RENAL CONSULTATION LOCATION: The patient is located in room 368, bed A. REQUESTED BY: Luis Manuel Staton MD REASON FOR FOLLOWUP: End-stage renal disease, continuation of hemodialysis, and bilateral leg ulcers. SUBJECTIVE: Mr. Pandey is a 73-year-old elderly male with a past medical history significant for longstanding hypertension, diabetes, coronary artery disease, status post stents, cardiomyopathy, AFib, peripheral vascular disease, bilateral lower extremity ulcers, status post debridement 2 weeks ago, was sent back from the long term by podiatry attending, Dr. Stein for possible debridement of the Achilles tendon infection. The patient was dialyzed yesterday and the patient underwent debridement of the Achilles tendon today. The patient is not in acute distress. Denies any chest pain or palpitation. Denies any fever or cough. No abdominal pain. No nausea, vomiting, diarrhea. PHYSICAL EXAMINATION: VITAL SIGNS: As follows: Blood pressure 120/74, pulse 84, respirations 20, temperature 98.1, saturation 99%. Height 5 feet 9 inches, weight is 159 pounds. GENERAL: Mr. Pandey is a 73-year-old elderly male, moderately built, moderately nourished, not in distress. HEENT: Pupils normal, reactive to light and accommodation. Conjunctivae pink. Sclerae anicteric. Tongue is moist. Trachea is midline. LUNGS: Symmetric on both sides. Bilateral breath sounds present. Occasional basal crackles present. CVS: [place] at the fifth intercostal space, midclavicular line. S1, S2 audible. No murmur or gallop. ABDOMEN: Normal in appearance. Soft, tympanitic. No guarding. No rigidity. No hepatosplenomegaly. DRAFTER DIRECTIONAL SURVEY: The patient is alert, awake, oriented x3. Nonfocal neuro examination. Cranial nerves II-XII grossly intact. Sensory and motor system is grossly within normal limits. EXTREMITIES: The patient has ulcers in both lower extremities above the ankles, status post debridement of the right Achilles tendon. The patient has a dressing and also the patient has 1+ edema in both lower extremities. CURRENT MEDICATIONS: Include as follows, Coreg 3.125 mg p.o. p.r.n., Eliquis on hold, lactulose 20 g p.o. daily, gentamicin 80 mg intravenous piggyback three times a week, Nephro-Vivian 1 tablet daily, Neurontin 100 mg p.o. t.i.d., Percocet 1 tablet p.o. every 4 hours p.r.n. for pain, PhosLo 667 mg p.o. t.i.d., Sensipar 60 mg p.o. daily, Tylenol and vancomycin 1 g three times a week. LABORATORY DATA: Blood culture x2 negative, wound culture positive for gram-negative rods and bacteria, and wound cultures from the right leg is pending from today. ASSESSMENT AND PLAN: In summary, Mr. Pandey is a 73-year-old elderly male with history of longstanding hypertension, diabetes, coronary artery disease, status post stent placement, atrial fibrillation, cardiomyopathy, bilateral leg ulcers, status post debridement two weeks ago, was admitted from the long term on 01/06/2019 after referring by the podiatry attending, Dr. Stein for right Achilles tendon infection and possible debridement. 1. End-stage renal disease. Continue dialysis three times a week Saturday, Saturday, Saturday. 2. Hypertension. Blood pressure is stable. Continue Coreg as per Dr. Luis Manuel Staton. 3. Bilateral leg ulcers. Continue dressing and wound care as per the Podiatry and the patient underwent debridement today. 4. Cardiomyopathy. 5. Peripheral vascular disease. Continue antibiotics as per the primary team. Advised the patient to watch fluids, restrict fluids to 1 liter and continue Sensipar, calcium acetate and Zemplar. Thank you for allowing me to participate in your patient's care. Gomez Vu MD
--- NOTE | 2019-01-08 22:45 | CP.PCM.PN ---
Subjective - Date & Time of Evaluation Date of Evaluation: 01/08/19 Time of Evaluation: 22:45 Objective - Vital Signs/Intake and Output Vital Signs (last 24 hours): Temp Pulse Resp BP Pulse Ox 98.1 F 84 20 120/74 99 01/08/19 16:04 01/08/19 16:04 01/08/19 16:04 01/08/19 16:04 01/08/19 16:04 Intake and Output: 01/08/19 01/09/19 18:59 06:59 Intake Total 375 Balance 375 - Medications Medications: Current Medications Acetaminophen (Tylenol 325mg Tab) 325 mg PO Q6 PRN PRN Reason: Pain, Mild (1-3) Apixaban (Eliquis) 2.5 mg PO BID [facility] Last Admin: 01/07/19 17:53 Dose: Not Given Calcium Acetate (Phoslo) 667 mg PO TID [facility] Last Admin: 01/08/19 18:04 Dose: 667 mg Carvedilol (Coreg) 3.125 mg PO PRN PRN PRN Reason: see below Last Admin: 01/08/19 06:30 Dose: 3.125 mg Cinacalcet (Sensipar) 60 mg PO DAILY [facility] Last Admin: 01/08/19 10:41 Dose: 60 mg Finasteride (Proscar) 5 mg PO DAILY [facility] Last Admin: 01/08/19 10:41 Dose: 5 mg Gabapentin (Neurontin) 100 mg PO TID [facility] Last Admin: 01/08/19 18:04 Dose: 100 mg Vancomycin HCl 1 gm/ Sodium (Chloride) 250 mls @ 166.7 mls/hr [place] [facility] Protocol Last Admin: 01/07/19 11:20 Dose: 166.7 mls/hr Gentamicin Sulfate/Sodium Chloride (Gentamicin 80mg/100ml Ns) 80 mg in 100 mls @ 100 mls/hr [place] [facility]; Protocol Lactulose (Enulose) 20 gm PO DAILY [facility] Last Admin: 01/08/19 10:41 Dose: 20 gm Oxycodone/Acetaminophen (Percocet 5/325 Mg Tab) 1 tab PO Q4H PRN PRN Reason: Pain, moderate (4-7) Stop: 01/11/19 09:05 Oxycodone/Acetaminophen (Percocet 5/325 Mg Tab) 2 tab PO Q4H PRN PRN Reason: Pain, severe (8-10) Stop: 01/11/19 09:05 Paricalcitol (Zemplar) 4 mcg IV MWF [facility] Last Admin: 01/07/19 12:52 Dose: 4 mcg Vitamin B Complex/Vit C/Folic Acid (Nephro-Vivian) 1 tab PO DAILY [facility] Last Admin: 01/08/19 10:18 Dose: Not Given - Labs Labs: 01/08/19 05:37 01/08/19 05:37 PT 14.3 SECONDS (9.7-12.2) H 01/08/19 05:37 INR 1.3 01/08/19 05:37 APTT 39 SECONDS (21-34) H 01/08/19 05:37
[2019-01-09] MEDS: Oxycodone/Acetaminophen 5/325 mg Tab PO PRN (01:55)
--- NOTE | 2019-01-09 06:34 | OP ---
PROCEDURE DATE: 01/08/2019 SURGEON: Omar Stein DPM WARE CARRIER: Erika Ramsey, PGY-1 ANESTHESIA: IV sedation with local. PREOPERATIVE DIAGNOSIS: Right ankle nonhealing ulceration. POSTOPERATIVE DIAGNOSIS: Right ankle nonhealing ulceration. NAME OF PROCEDURE: Right ankle wound debridement with debridement of necrotic Achilles tendon. INDICATIONS: The patient is a 73-year-old male with the above diagnosis. The patient has exhausted all conservative treatment at this time and now requires surgical intervention. The patient signed the consent after careful explanation of risks, benefits, and complications as well as alternatives for the surgical procedure. No guarantees were given nor implied. PREPARATION: The patient was brought into the operating room and placed on the operating room table in a supine position. Time-out was performed for identification of correct patient and procedure. After induction of IV sedation, the patient received a total of 20 mL of 1:1 mixture of 2% lidocaine plain and 0.5% Marcaine plain in a local block fashion surrounding the ulceration. Once local anesthesia was achieved, the right foot was then prepped and draped in a normal sterile manner. No tourniquet was used during this procedure. DESCRIPTION OF PROCEDURE: Attention was directed to the posterior aspect of the right ankle where an ulceration was appreciated. Next, utilizing a #15 blade, all nonviable skin and soft tissue involving the ulceration was debrided. Next, an incision was made ascending proximally from the ulceration site, The incision was deepened to subcutaneous tissue using a #15 blade and hemostat. Next, necrotic and devitalized tissue was excisionally debrided until a healthy granular bleeding tissue was noted. Next, using the Versajet on setting 7, the wound bed edges were excisionally debrided of all remaining nonviable fibrotic tissue. The surgical site was then irrigated again using normal sterile saline and a bulb syringe. The wound was then partially closed with 3-0 nylon. Next, a 1/4-inch plain packing was placed into the ulceration site. The wound was then dressed with Xeroform, ABD, and Kerlix. Attention was directed to the medial aspect of right ankle where an additional ulceration was appreciated. The ulceration was then debrided with the Versajet on setting 5 until a heathy and granulated wound bed was appreciated. The wound was then flushed with normal sterile saline and dressed with Xeroform, DSD, ABD, and Kerlix. POSTOPERATIVE CONDITION: The patient tolerated the anesthesia and procedure well and was escorted to the recovery room with all vital signs stable and neurovascular status intact to the right foot. The patient is to remain weightbearing as tolerated to the right foot. The patient will be seen on the floor by Dr. Stein and will follow up with Dr. Stein as an outpatient within one week of the procedure. KESHIA Diop Omar Stein DPM [facility]
[2019-01-09] MEDS: Gentamicin 80 mg in 0.9% NS 80 MG/100 ML BAG IVPB SCH ×2 (09:22→13:18)
[2019-01-09] MEDS: Paricalcitol 2 mcg/ml Inj IV SCH (09:27)
[2019-01-09] MEDS: Multivitamin Vitamin B Complex (Nephro-Vite) Tab PO SCH ×2 (10:38→14:03)
--- NOTE | 2019-01-09 10:42 | CP.PCM.PN ---
Subjective - Date & Time of Evaluation Date of Evaluation: 01/09/19 Time of Evaluation: 10:38 - Subjective Subjective: Podiatry Consult Note: Dr. Stein 73 year old male was evaluated in dialysis 1 day s/p right Achilles tendon wound debridement. He is AAOx3 and NAD at time of visit. Reports that he has very little pain on the RLE. Denies any further pedal complaints. States that he maybe getting a bone scan today and going back to the senior care after. Denies any recent N/V/F/C/CP/SOB/D. Objective - Vital Signs/Intake and Output Vital Signs (last 24 hours): Temp Pulse Resp BP Pulse Ox 97.9 F 85 18 114/67 98 01/09/19 09:00 01/09/19 09:00 01/09/19 09:00 01/09/19 10:00 01/09/19 09:00 Intake and Output: 01/09/19 01/09/19 06:59 18:59 Intake Total 400 Balance 400 - Medications Medications: Current Medications Acetaminophen (Tylenol 325mg Tab) 325 mg PO Q6 PRN PRN Reason: Pain, Mild (1-3) Apixaban (Eliquis) 2.5 mg PO BID [facility] Last Admin: 01/07/19 17:53 Dose: Not Given Calcium Acetate (Phoslo) 667 mg PO TID [facility] Last Admin: 01/09/19 08:18 Dose: 667 mg Carvedilol (Coreg) 3.125 mg PO PRN PRN PRN Reason: see below Last Admin: 01/08/19 06:30 Dose: 3.125 mg Cinacalcet (Sensipar) 60 mg PO DAILY [facility] Last Admin: 01/08/19 10:41 Dose: 60 mg Finasteride (Proscar) 5 mg PO DAILY [facility] Last Admin: 01/08/19 10:41 Dose: 5 mg Gabapentin (Neurontin) 100 mg PO TID [facility] Last Admin: 01/08/19 18:04 Dose: 100 mg Vancomycin HCl 1 gm/ Sodium (Chloride) 250 mls @ 166.7 mls/hr IVPB MWF [facility]; Protocol Last Admin: 01/07/19 11:20 Dose: 166.7 mls/hr Gentamicin Sulfate/Sodium Chloride (Gentamicin 80mg/100ml Ns) 80 mg in 100 mls @ 100 mls/hr IVPB [facility] [place]; Protocol Lactulose (Enulose) 20 gm PO DAILY [facility] Last Admin: 01/08/19 10:41 Dose: 20 gm Oxycodone/Acetaminophen (Percocet 5/325 Mg Tab) 1 tab PO Q4H PRN PRN Reason: Pain, moderate (4-7) Stop: 01/11/19 09:05 Last Admin: 01/09/19 01:55 Dose: 1 tab Oxycodone/Acetaminophen (Percocet 5/325 Mg Tab) 2 tab PO Q4H PRN PRN Reason: Pain, severe (8-10) Stop: 01/11/19 09:05 Paricalcitol (Zemplar) 4 mcg IV [facility] [place] Last Admin: 01/09/19 09:27 Dose: 4 mcg Vitamin B Complex/Vit C/Folic Acid (Nephro-Vivian) 1 tab PO DAILY [facility] Last Admin: 01/08/19 10:18 Dose: Not Given - Labs Labs: 01/08/19 05:37 01/08/19 05:37 PT 14.3 SECONDS (9.7-12.2) H 01/08/19 05:37 INR 1.3 01/08/19 05:37 APTT 39 SECONDS (21-34) H 01/08/19 05:37 - Constitutional Appears: Well, Non-toxic, No Acute Distress - Extremities Exam Additional comments: Dressing is clean, dry and intact; no strike through noted - Neurological Exam Neurological Exam: Alert, Awake, Oriented x3 - Psychiatric Exam Psychiatric exam: Normal Affect, Normal Mood Assessment and Plan - Assessment and Plan (Free Text) Assessment: 73 year old male evaluated 1 day s/p right Achilles tendon wound debridement Plan: Patient seen and evaluated Discussed plan with Dr. Stein Afebrile, absent leukocytosis B/l ankle xrays: Right ankle - Deep ulcer without adjacent underlying radiographic evidence of acute osteomyelitis. Left ankle - Soft tissue swelling without acute articular or osseous abnormality. Bone scan: Pending Infectious disease consult - recommendations appreciated Vascular consult, recs appreciated Pre-op wound culture from lateral right leg taken: Pseudomonas Aeruginosa; Corynebacterium Intra-op wound culture: G- Rods RLE dressing to be changed by nursing Left leg wound dressed with DSD Multipodus boots to be worn in bed at all times Stable from podiatry standpoint and can be d/c after bone scan Podiatry will continue to follow while patient in house
--- NOTE | 2019-01-09 14:15 | CP.PCM.PN ---
Subjective - Date & Time of Evaluation Date of Evaluation: 01/09/19 Time of Evaluation: 08:00 - Subjective Subjective: wounds debrided afebrile Objective - Vital Signs/Intake and Output Vital Signs (last 24 hours): Temp Pulse Resp BP Pulse Ox 97.5 F L 83 16 123/74 100 01/09/19 12:00 01/09/19 12:00 01/09/19 12:00 01/09/19 12:00 01/09/19 12:00 Intake and Output: 01/09/19 01/09/19 06:59 18:59 Intake Total 400 Balance 400 - Medications Medications: Current Medications Acetaminophen (Tylenol 325mg Tab) 325 mg PO Q6 PRN PRN Reason: Pain, Mild (1-3) Apixaban (Eliquis) 2.5 mg PO BID [facility] Last Admin: 01/09/19 10:38 Dose: Not Given Calcium Acetate (Phoslo) 667 mg PO TID [facility] Last Admin: 01/09/19 14:02 Dose: 667 mg Carvedilol (Coreg) 3.125 mg PO PRN PRN PRN Reason: see below Last Admin: 01/08/19 06:30 Dose: 3.125 mg Cinacalcet (Sensipar) 60 mg PO DAILY [facility] Last Admin: 01/09/19 14:03 Dose: 60 mg Finasteride (Proscar) 5 mg PO DAILY [facility] Last Admin: 01/09/19 14:02 Dose: 5 mg Gabapentin (Neurontin) 100 mg PO TID [facility] Last Admin: 01/09/19 14:01 Dose: 100 mg Vancomycin HCl 1 gm/ Sodium (Chloride) 250 mls @ 166.7 mls/hr IVPB [facility] [place] [facility] [place]; Protocol Last Admin: 01/09/19 09:22 Dose: Not Given Gentamicin Sulfate/Sodium Chloride (Gentamicin 80mg/100ml Ns) 80 mg in 100 mls @ 100 mls/hr IVPB [facility] [place] [facility] [place]; Protocol Last Admin: 01/09/19 13:18 Dose: 100 mls/hr Lactulose (Enulose) 20 gm PO DAILY [facility] Last Admin: 01/09/19 10:38 Dose: Not Given Oxycodone/Acetaminophen (Percocet 5/325 Mg Tab) 1 tab PO Q4H PRN PRN Reason: Pain, moderate (4-7) Stop: 01/11/19 09:05 Last Admin: 01/09/19 01:55 Dose: 1 tab Oxycodone/Acetaminophen (Percocet 5/325 Mg Tab) 2 tab PO Q4H PRN PRN Reason: Pain, severe (8-10) Stop: 01/11/19 09:05 Paricalcitol (Zemplar) 4 mcg IV MWF [facility] Last Admin: 01/09/19 09:27 Dose: 4 mcg Vitamin B Complex/Vit C/Folic Acid (Nephro-Vivian) 1 tab PO DAILY [facility] Last Admin: 01/09/19 14:03 Dose: 1 tab - Labs Labs: 01/08/19 05:37 01/08/19 05:37 PT 14.3 SECONDS (9.7-12.2) H 01/08/19 05:37 INR 1.3 01/08/19 05:37 APTT 39 SECONDS (21-34) H 01/08/19 05:37 - Constitutional Appears: Non-toxic, Chronically Ill - Head Exam Head Exam: NORMOCEPHALIC - Eye Exam Eye Exam: absent: Scleral icterus - ENT Exam ENT Exam: Mucous Membranes Dry - Neck Exam Neck Exam: absent: Lymphadenopathy - Respiratory Exam Respiratory Exam: Decreased Breath Sounds - Cardiovascular Exam Cardiovascular Exam: REGULAR RHYTHM - GI/Abdominal Exam GI & Abdominal Exam: Distended - Rectal Exam Rectal Exam: Deferred - Exam Exam: NORMAL INSPECTION - Extremities Exam Extremities Exam: absent: Pedal Edema - Back Exam Back Exam: absent: CVA tenderness (L), CVA tenderness (R) - Neurological Exam Neurological Exam: Altered - Psychiatric Exam Psychiatric exam: Normal Mood - Skin Skin Exam: Dry Additional comments: wound dressed and healed Assessment and Plan (1) Wound of lower extremity Status: Acute (2) ESRD (end stage renal disease) on dialysis Status: Acute (3) Hypertension Status: Acute - Assessment and Plan (Free Text) Assessment: cont rx IV and PO antibiotics
--- NOTE | 2019-01-09 16:02 | CP.PCM.PN ---
Subjective - Date & Time of Evaluation Date of Evaluation: 01/09/19 Time of Evaluation: 16:01 - Subjective Subjective: pt is seen and examined, follow up consult is dictated #[id number] s/p hd today, had a uf 3 lit Objective - Vital Signs/Intake and Output Vital Signs (last 24 hours): Temp Pulse Resp BP Pulse Ox 97.5 F L 83 16 123/74 100 01/09/19 12:00 01/09/19 12:00 01/09/19 12:00 01/09/19 12:00 01/09/19 12:00 Intake and Output: 01/09/19 01/09/19 06:59 18:59 Intake Total 400 Balance 400 - Medications Medications: Current Medications Acetaminophen (Tylenol 325mg Tab) 325 mg PO Q6 PRN PRN Reason: Pain, Mild (1-3) Apixaban (Eliquis) 2.5 mg PO BID [facility] Last Admin: 01/09/19 10:38 Dose: Not Given Calcium Acetate (Phoslo) 667 mg PO TID [facility] Last Admin: 01/09/19 14:02 Dose: 667 mg Carvedilol (Coreg) 3.125 mg PO PRN PRN PRN Reason: see below Last Admin: 01/08/19 06:30 Dose: 3.125 mg Cinacalcet (Sensipar) 60 mg PO DAILY [facility] Last Admin: 01/09/19 14:03 Dose: 60 mg Ciprofloxacin (Cipro) 500 mg PO DAILY [facility]; Protocol Finasteride (Proscar) 5 mg PO DAILY [facility] Last Admin: 01/09/19 14:02 Dose: 5 mg Gabapentin (Neurontin) 100 mg PO TID [facility] Last Admin: 01/09/19 14:01 Dose: 100 mg Vancomycin HCl 1 gm/ Sodium (Chloride) 250 mls @ 166.7 mls/hr IVPB F [facility]; Protocol Last Admin: 01/09/19 15:51 Dose: 166.7 mls/hr Gentamicin Sulfate/Sodium Chloride (Gentamicin 80mg/100ml Ns) 80 mg in 100 mls @ 100 mls/hr IVPB MWF [facility]; Protocol Last Admin: 01/09/19 13:18 Dose: 100 mls/hr Lactulose (Enulose) 20 gm PO DAILY [facility] Last Admin: 01/09/19 10:38 Dose: Not Given Oxycodone/Acetaminophen (Percocet 5/325 Mg Tab) 1 tab PO Q4H PRN PRN Reason: Pain, moderate (4-7) Stop: 01/11/19 09:05 Last Admin: 01/09/19 01:55 Dose: 1 tab Oxycodone/Acetaminophen (Percocet 5/325 Mg Tab) 2 tab PO Q4H PRN PRN Reason: Pain, severe (8-10) Stop: 01/11/19 09:05 Paricalcitol (Zemplar) 4 mcg IV MWF [facility] Last Admin: 01/09/19 09:27 Dose: 4 mcg Vitamin B Complex/Vit C/Folic Acid (Nephro-Vivian) 1 tab PO DAILY [facility] Last Admin: 01/09/19 14:03 Dose: 1 tab - Labs Labs: 01/08/19 05:37 01/08/19 05:37 PT 14.3 SECONDS (9.7-12.2) H 01/08/19 05:37 INR 1.3 01/08/19 05:37 APTT 39 SECONDS (21-34) H 01/08/19 05:37
[2019-01-09] MEDS ORDERED: guaiFENesin 100 mg/5 ml Syrup UD PO PRN (22:17)
--- NOTE | 2019-01-09 22:17 | CP.PCM.PN ---
Subjective - Date & Time of Evaluation Date of Evaluation: 01/09/19 Time of Evaluation: 22:17 Objective - Vital Signs/Intake and Output Vital Signs (last 24 hours): Temp Pulse Resp BP Pulse Ox 98.9 F 86 20 124/79 98 01/09/19 16:09 01/09/19 16:09 01/09/19 16:09 01/09/19 16:09 01/09/19 16:09 Intake and Output: 01/09/19 01/10/19 18:59 06:59 Intake Total 350 Balance 350 - Medications Medications: Current Medications Acetaminophen (Tylenol 325mg Tab) 325 mg PO Q6 PRN PRN Reason: Pain, Mild (1-3) Apixaban (Eliquis) 2.5 mg PO BID [facility] Last Admin: 01/09/19 17:04 Dose: 2.5 mg Calcium Acetate (Phoslo) 667 mg PO TID [facility] Last Admin: 01/09/19 17:04 Dose: 667 mg Carvedilol (Coreg) 3.125 mg PO PRN PRN PRN Reason: see below Last Admin: 01/08/19 06:30 Dose: 3.125 mg Cinacalcet (Sensipar) 60 mg PO DAILY [facility] Last Admin: 01/09/19 14:03 Dose: 60 mg Ciprofloxacin (Cipro) 500 mg PO DAILY [facility]; Protocol Last Admin: 01/09/19 17:04 Dose: 500 mg Finasteride (Proscar) 5 mg PO DAILY [facility] Last Admin: 01/09/19 14:02 Dose: 5 mg Gabapentin (Neurontin) 100 mg PO TID [facility] Last Admin: 01/09/19 17:05 Dose: 100 mg Vancomycin HCl 1 gm/ Sodium (Chloride) 250 mls @ 166.7 mls/hr IVPB [facility] [place] Protocol Last Admin: 01/09/19 15:51 Dose: 166.7 mls/hr Gentamicin Sulfate/Sodium Chloride (Gentamicin 80mg/100ml Ns) 80 mg in 100 mls @ 100 mls/hr IVPB [facility] [place]; Protocol Last Admin: 01/09/19 13:18 Dose: 100 mls/hr Lactulose (Enulose) 20 gm PO DAILY [facility] Last Admin: 01/09/19 10:38 Dose: Not Given Oxycodone/Acetaminophen (Percocet 5/325 Mg Tab) 1 tab PO Q4H PRN PRN Reason: Pain, moderate (4-7) Stop: 01/11/19 09:05 Last Admin: 01/09/19 01:55 Dose: 1 tab Oxycodone/Acetaminophen (Percocet 5/325 Mg Tab) 2 tab PO Q4H PRN PRN Reason: Pain, severe (8-10) Stop: 01/11/19 09:05 Paricalcitol (Zemplar) 4 mcg IV MWF [facility] Last Admin: 01/09/19 09:27 Dose: 4 mcg Vitamin B Complex/Vit C/Folic Acid (Nephro-Vivian) 1 tab PO DAILY [facility] Last Admin: 01/09/19 14:03 Dose: 1 tab - Labs Labs: 01/08/19 05:37 01/08/19 05:37 PT 14.3 SECONDS (9.7-12.2) H 01/08/19 05:37 INR 1.3 01/08/19 05:37 APTT 39 SECONDS (21-34) H 01/08/19 05:37
[2019-01-10] MEDS: Albuterol-Ipratrop 3 mg / 0.5 (3 ml) UD INH SCH ×4 (01:42→20:16)
--- NOTE | 2019-01-10 03:10 | PN ---
DATE: 01/09/2019 FOLLOWUP RENAL CONSULTATION LOCATION: The patient is located in room 368, bed A. REQUESTED BY: Luis Manuel Staton MD REASON FOR FOLLOWUP: End-stage renal disease, continuation of hemodialysis. SUBJECTIVE: Mr. Pandey is a 73-year-old elderly male with a past medical history significant for longstanding hypertension, diabetes, coronary artery disease, status post stent placement, AFib, cardiomyopathy, peripheral vascular disease, bilateral leg ulcers, end-stage renal disease, on hemodialysis three times a week on Saturday, Saturday and Saturday who was sent from the skilled nursing for a nonhealing necrotic right leg ulcer on Achilles tendon. The patient underwent debridement yesterday. The patient is not in acute distress. The patient underwent hemodialysis today, had ultrafiltration about 3 L. No chest pain. No palpitation. No fever. No cough. No abdominal pain. No nausea, vomiting, or diarrhea. PHYSICAL EXAMINATION: VITAL SIGNS: As follows: Blood pressure this afternoon 124/79, pulse 86, respirations 20, temperature 98.9, and saturation 98%. Height 5 feet 9 inches. Weight is 159 pounds. GENERAL: Mr. Pandey is a 73-year-old elderly male, moderately built, moderately nourished, not in acute distress. HEENT: Pupils are normal and reactive to accommodation. Conjunctivae are pink. Sclerae anicteric. Tongue is moist. Trachea is midline. LUNGS: Symmetric on both sides. Bilateral breath sounds present. Clear to auscultation. CARDIOVASCULAR SYSTEM: [place] at the fifth intercostal space, midclavicular line. S1 and S2 audible. No murmur or gallop. ABDOMEN: Normal in appearance. Soft, tympanitic. No guarding. No rigidity. No hepatosplenomegaly. CENTRAL NERVOUS SYSTEM: The patient is alert, awake, oriented x3. Nonfocal neuro examination. Cranial nerves II through XII grossly intact. Sensory and motor system is within normal limits. EXTREMITIES: No cyanosis, no clubbing. The patient has 1+ edema in both lower extremities. The patient also has dressing to the both legs, just above the ankle. CURRENT MEDICATIONS: Include as follows: Ciprofloxacin 500 mg p.o. daily, Coreg 3.125 mg p.o. p.r.n., Eliquis 2.5 mg p.o. b.i.d., lactulose 20 g p.o. daily, gentamicin 80 mg three times a week, Nephro-Vivian one tablet daily, Neurontin 100 mg p.o. t.i.d., Percocet one tablet p.o. every 4 hours p.r.n., Proscar 5 mg p.o. daily, Sensipar 60 mg p.o. daily, Tylenol 325 mg p.o. every 6 hours p.r.n., vancomycin 1 g three times a week on Saturday, Saturday and Saturday, Zemplar 4 mcg three times a week. LABORATORY DATA: Include as follows: As of 01/08/2019, WBC 5.3, hemoglobin 9.7, hematocrit 31.4, platelets 136. PT 14.3 and PTT 39. Sodium 132, potassium 4.2, chloride 92, CO2 of 27, BUN 36, creatinine 4.4, glucose 129, calcium 9.7. Other reports: Wound cultures positive for Pseudomonas and Corynebacterium species and wound culture from yesterday gram-negative rods. ASSESSMENT AND PLAN: In summary, Mr. Pandey is a 73-year-old elderly male with a history of longstanding hypertension, diabetes, coronary artery disease, status post stents, atrial fibrillation, cardiomyopathy, end-stage renal disease, on hemodialysis three times a week with bilateral leg ulcers, wound culture positive for Pseudomonas who was admitted with bilateral nonhealing ulcers from the skilled nursing for possible debridement of necrotic Achilles tendon. The patient underwent debridement of Achilles tendon yesterday. 1. End-stage renal disease. Continue hemodialysis three times a week on Saturday, Saturday and Saturday. The patient had a dialysis, had ultrafiltration about 3 L, tolerated well. 2. Diabetes. 3. Nonhealing leg ulcers, status post debridement of right Achilles tendon. Wound culture positive for Pseudomonas. Continue antibiotics as per primary team, Marisol D[place], gentamicin and vancomycin. Advised the patient restrict fluids to 1 L per day. Continue his Sensipar and Zemplar. We will add Procrit with next hemodialysis, and we will give Epogen 10,000 units subcutaneously x1 dose tomorrow. We will follow with you. Thank you for allowing me to participate in your patient's care. Gomez Vu MD [facility] # [id number]
[2019-01-10] MEDS: Multivitamin Vitamin B Complex (Nephro-Vite) Tab PO SCH (09:52)
[2019-01-10] MEDS: Oxycodone/Acetaminophen 5/325 mg Tab PO PRN (09:59)
--- NOTE | 2019-01-10 10:03 | CP.PCM.PN ---
Subjective - Date & Time of Evaluation Date of Evaluation: 01/10/19 Time of Evaluation: 09:59 - Subjective Subjective: Podiatry Consult Note for attending Dr. Stein 73 year old male was evaluated with Dr. Stein 2 days s/p right Achilles tendon wound debridement. He is AAOx3 and NAD at time of visit. Reports that he has very little pain on the RLE. Denies any further pedal complaints. Patient aware he is going to be transferred to a subacute rehab facility. Denies any recent N/V/F/C/CP/SOB/D. Objective - Vital Signs/Intake and Output Vital Signs (last 24 hours): Temp Pulse Resp BP Pulse Ox 98.1 F 84 20 124/76 100 01/09/19 23:28 01/09/19 23:28 01/09/19 23:28 01/09/19 23:28 01/09/19 23:28 Intake and Output: 01/10/19 01/10/19 06:59 18:59 Intake Total 200 Balance 200 - Medications Medications: Current Medications Acetaminophen (Tylenol 325mg Tab) 325 mg PO Q6 PRN PRN Reason: Pain, Mild (1-3) Albuterol/Ipratropium (Duoneb 3 Mg/0.5 Mg (3 Ml) Ud) 3 ml INH RQ6 [facility] Last Admin: 01/10/19 01:42 Dose: 3 ml Apixaban (Eliquis) 2.5 mg PO BID [facility] Last Admin: 01/10/19 09:58 Dose: 2.5 mg Calcium Acetate (Phoslo) 667 mg PO TID [facility] Last Admin: 01/10/19 09:52 Dose: 667 mg Carvedilol (Coreg) 3.125 mg PO PRN PRN PRN Reason: see below Last Admin: 01/08/19 06:30 Dose: 3.125 mg Cinacalcet (Sensipar) 60 mg PO DAILY [facility] Last Admin: 01/10/19 09:52 Dose: 60 mg Ciprofloxacin (Cipro) 500 mg PO DAILY [facility]; Protocol Last Admin: 01/10/19 09:52 Dose: 500 mg Finasteride (Proscar) 5 mg PO DAILY [facility] Last Admin: 01/10/19 09:58 Dose: 5 mg Gabapentin (Neurontin) 100 mg PO TID [facility] Last Admin: 01/10/19 09:58 Dose: 100 mg Guaifenesin (Robitussin) 100 mg PO Q8 PRN PRN Reason: Cough Vancomycin HCl 1 gm/ Sodium (Chloride) 250 mls @ 166.7 mls/hr IVPB MWF [facility]; Protocol Last Admin: 01/09/19 15:51 Dose: 166.7 mls/hr Gentamicin Sulfate/Sodium Chloride (Gentamicin 80mg/100ml Ns) 80 mg in 100 mls @ 100 mls/hr IVPB MWF [facility]; Protocol Last Admin: 01/09/19 13:18 Dose: 100 mls/hr Lactulose (Enulose) 20 gm PO DAILY [facility] Last Admin: 01/10/19 09:52 Dose: 20 gm Oxycodone/Acetaminophen (Percocet 5/325 Mg Tab) 1 tab PO Q4H PRN PRN Reason: Pain, moderate (4-7) Stop: 01/11/19 09:05 Last Admin: 01/10/19 09:59 Dose: 1 tab Oxycodone/Acetaminophen (Percocet 5/325 Mg Tab) 2 tab PO Q4H PRN PRN Reason: Pain, severe (8-10) Stop: 01/11/19 09:05 Paricalcitol (Zemplar) 4 mcg IV MWF [facility] Last Admin: 01/09/19 09:27 Dose: 4 mcg Vitamin B Complex/Vit C/Folic Acid (Nephro-Vivian) 1 tab PO DAILY [facility] Last Admin: 01/10/19 09:52 Dose: 1 tab - Labs Labs: 01/08/19 05:37 01/08/19 05:37 PT 14.3 SECONDS (9.7-12.2) H 01/08/19 05:37 INR 1.3 01/08/19 05:37 APTT 39 SECONDS (21-34) H 01/08/19 05:37 - Constitutional Appears: Well, Non-toxic, No Acute Distress - Head Exam Head Exam: ATRAUMATIC, NORMOCEPHALIC - Extremities Exam Additional comments: Lower Extremity Focused Exam Vasc: DP/PT pulses faintly palpable 1/4 b/l. Skin temperature warm to warm from proximal to distal WNL. CFT < 3 seconds to all digits b/l. Minimal, diffuse edema noted to b/l lower extremities Neuro: Epicritic and protective sensation grossly intact b/l Derm: RIGHT- Ulceration #1: 4 cm x 3 cm x 0.3 cm ulceration noted to lateral lower leg. Wound base is granular in nature. No erythema, malodor, drainage, tracking, tunneling or undermining. No evidence of infection appreciated. Ulceration #2 and #3: approximately 1 cm x 1 cm x 0.1 cm ulcerations noted along length of achilles tendon, wound bed granular, No erythema, malodor, drainage, tracking, tunneling or undermining. No evidence of infection appreciated LEFT- dressing clean, dry and intact, no strike through noted MSK: Pain on palpation to all ulceration sites. Diffuse pain to b/l LE R>L. No gross deformities appreciated - Neurological Exam Neurological Exam: Alert, Awake, Oriented x3 - Psychiatric Exam Psychiatric exam: Normal Affect, Normal Mood Assessment and Plan - Assessment and Plan (Free Text) Assessment: 73 year old male evaluated 2 days s/p right Achilles tendon wound debridement Plan: Patient seen and evaluated with Dr. Stein Discussed plan with Dr. Stein Afebrile, absent leukocytosis B/l ankle xrays: Right ankle - Deep ulcer without adjacent underlying radiographic evidence of acute osteomyelitis. Left ankle - Soft tissue swelling without acute articular or osseous abnormality. Bone scan: Pending final read Infectious disease consult - recommendations appreciated Vascular consult, recs appreciated Pre-op wound culture from lateral right leg taken: Pseudomonas Aeruginosa; Corynebacterium Intra-op wound culture: G- Rods Multipodus boots to be worn in bed at all times Stable from podiatry standpoint and can be d/c after bone scan Podiatry will continue to follow while patient in house
--- NOTE | 2019-01-10 12:56 | CP.PCM.PN ---
Subjective - Date & Time of Evaluation Date of Evaluation: 01/10/19 Time of Evaluation: 12:56 - Subjective Subjective: pt is seen and examined, follow up consult is dictated #[id number] Objective - Vital Signs/Intake and Output Vital Signs (last 24 hours): Temp Pulse Resp BP Pulse Ox 98.7 F 88 20 137/80 98 01/10/19 08:00 01/10/19 08:00 01/10/19 08:00 01/10/19 08:00 01/10/19 08:00 Intake and Output: 01/10/19 01/10/19 06:59 18:59 Intake Total 200 Balance 200 - Medications Medications: Current Medications Acetaminophen (Tylenol 325mg Tab) 325 mg PO Q6 PRN PRN Reason: Pain, Mild (1-3) Albuterol/Ipratropium (Duoneb 3 Mg/0.5 Mg (3 Ml) Ud) 3 ml INH RQ6 [facility] Last Admin: 01/10/19 01:42 Dose: 3 ml Apixaban (Eliquis) 2.5 mg PO BID [facility] Last Admin: 01/10/19 09:58 Dose: 2.5 mg Calcium Acetate (Phoslo) 667 mg PO TID [facility] Last Admin: 01/10/19 09:52 Dose: 667 mg Carvedilol (Coreg) 3.125 mg PO PRN PRN PRN Reason: see below Last Admin: 01/08/19 06:30 Dose: 3.125 mg Cinacalcet (Sensipar) 60 mg PO DAILY [facility] Last Admin: 01/10/19 09:52 Dose: 60 mg Ciprofloxacin (Cipro) 500 mg PO DAILY [facility]; Protocol Last Admin: 01/10/19 09:52 Dose: 500 mg Finasteride (Proscar) 5 mg PO DAILY [facility] Last Admin: 01/10/19 09:58 Dose: 5 mg Gabapentin (Neurontin) 100 mg PO TID [facility] Last Admin: 01/10/19 09:58 Dose: 100 mg Guaifenesin (Robitussin) 100 mg PO Q8 PRN PRN Reason: Cough Vancomycin HCl 1 gm/ Sodium (Chloride) 250 mls @ 166.7 mls/hr IVPB MWF [facility]; Protocol Last Admin: 01/09/19 15:51 Dose: 166.7 mls/hr Gentamicin Sulfate/Sodium Chloride (Gentamicin 80mg/100ml Ns) 80 mg in 100 mls @ 100 mls/hr IVPB MWF [facility]; Protocol Last Admin: 01/09/19 13:18 Dose: 100 mls/hr Lactulose (Enulose) 20 gm PO DAILY [facility] Last Admin: 01/10/19 09:52 Dose: 20 gm Oxycodone/Acetaminophen (Percocet 5/325 Mg Tab) 1 tab PO Q4H PRN PRN Reason: Pain, moderate (4-7) Stop: 01/11/19 09:05 Last Admin: 01/10/19 09:59 Dose: 1 tab Oxycodone/Acetaminophen (Percocet 5/325 Mg Tab) 2 tab PO Q4H PRN PRN Reason: Pain, severe (8-10) Stop: 01/11/19 09:05 Paricalcitol (Zemplar) 4 mcg IV MWF [facility] Last Admin: 01/09/19 09:27 Dose: 4 mcg Vitamin B Complex/Vit C/Folic Acid (Nephro-Vivian) 1 tab PO DAILY [facility] Last Admin: 01/10/19 09:52 Dose: 1 tab - Labs Labs: 01/08/19 05:37 01/08/19 05:37 PT 14.3 SECONDS (9.7-12.2) H 01/08/19 05:37 INR 1.3 01/08/19 05:37 APTT 39 SECONDS (21-34) H 01/08/19 05:37
--- NOTE | 2019-01-10 15:09 | CP.PCM.PN ---
Subjective - Date & Time of Evaluation Date of Evaluation: 01/10/19 Time of Evaluation: 09:00 - Subjective Subjective: events noted iv rx in progress await bone scan Objective - Vital Signs/Intake and Output Vital Signs (last 24 hours): Temp Pulse Resp BP Pulse Ox 98.7 F 88 20 137/80 98 01/10/19 08:00 01/10/19 08:00 01/10/19 08:00 01/10/19 08:00 01/10/19 08:00 Intake and Output: 01/10/19 01/10/19 06:59 18:59 Intake Total 200 480 Balance 200 480 - Medications Medications: Current Medications Acetaminophen (Tylenol 325mg Tab) 325 mg PO Q6 PRN PRN Reason: Pain, Mild (1-3) Albuterol/Ipratropium (Duoneb 3 Mg/0.5 Mg (3 Ml) Ud) 3 ml INH RQ6 [facility]CLUDES [facility] Last Admin: 01/10/19 13:30 Dose: 3 ml Apixaban (Eliquis) 2.5 mg PO BID COUNT INCLUDES THE [facility] Last Admin: 01/10/19 09:58 Dose: 2.5 mg Calcium Acetate (Phoslo) 667 mg PO TID COUNT INCLUDES THE [facility] Last Admin: 01/10/19 14:25 Dose: 667 mg Carvedilol (Coreg) 3.125 mg PO PRN PRN PRN Reason: see below Last Admin: 01/08/19 06:30 Dose: 3.125 mg Cinacalcet (Sensipar) 60 mg PO DAILY COUNT INCLUDES THE [facility] Last Admin: 01/10/19 09:52 Dose: 60 mg Ciprofloxacin (Cipro) 500 mg PO DAILY COUNT INCLUDES THE [facility]; Protocol Last Admin: 01/10/19 09:52 Dose: 500 mg Finasteride (Proscar) 5 mg PO DAILY COUNT INCLUDES THE [facility] Last Admin: 01/10/19 09:58 Dose: 5 mg Gabapentin (Neurontin) 100 mg PO TID COUNT INCLUDES THE [facility] Last Admin: 01/10/19 14:25 Dose: 100 mg Guaifenesin (Robitussin) 100 mg PO Q8 PRN PRN Reason: Cough Vancomycin HCl 1 gm/ Sodium (Chloride) 250 mls @ 166.7 mls/hr IVPB MWF COUNT INCLUDES THE [facility]; Protocol Last Admin: 01/09/19 15:51 Dose: 166.7 mls/hr Gentamicin Sulfate/Sodium Chloride (Gentamicin 80mg/100ml Ns) 80 mg in 100 mls @ 100 mls/hr IVPB MWF COUNT [facility]CLUDES THE [facility]; Protocol Last Admin: 01/09/19 13:18 Dose: 100 mls/hr Lactulose (Enulose) 20 gm PO DAILY COUNT INCLUDES THE [facility] Last Admin: 01/10/19 09:52 Dose: 20 gm Oxycodone/Acetaminophen (Percocet 5/325 Mg Tab) 1 tab PO Q4H PRN PRN Reason: Pain, moderate (4-7) Stop: 01/11/19 09:05 Last Admin: 01/10/19 09:59 Dose: 1 tab Oxycodone/Acetaminophen (Percocet 5/325 Mg Tab) 2 tab PO Q4H PRN PRN Reason: Pain, severe (8-10) Stop: 01/11/19 09:05 Paricalcitol (Zemplar) 4 mcg IV [facility] [place] Last Admin: 01/09/19 09:27 Dose: 4 mcg Vitamin B Complex/Vit C/Folic Acid (Nephro-Vivian) 1 tab PO DAILY COUNT INCLUDES THE [facility] Last Admin: 01/10/19 09:52 Dose: 1 tab - Labs Labs: 01/08/19 05:37 01/08/19 05:37 PT 14.3 SECONDS (9.7-12.2) H 01/08/19 05:37 INR 1.3 01/08/19 05:37 APTT 39 SECONDS (21-34) H 01/08/19 05:37 - Constitutional Appears: Non-toxic, No Acute Distress, Chronically Ill - Head Exam Head Exam: ATRAUMATIC, NORMAL INSPECTION, NORMOCEPHALIC - Eye Exam Eye Exam: EOMI, Normal appearance, PERRL Pupil Exam: NORMAL ACCOMODATION, PERRL - ENT Exam ENT Exam: Mucous Membranes Moist, Normal Exam - Neck Exam Neck Exam: Full ROM, Normal Inspection. absent: Lymphadenopathy - Respiratory Exam Respiratory Exam: Clear to Ausculation Bilateral, NORMAL BREATHING PATTERN - Cardiovascular Exam Cardiovascular Exam: REGULAR RHYTHM, +S1, +S2. absent: Murmur - GI/Abdominal Exam GI & Abdominal Exam: Soft, Normal Bowel Sounds. absent: Tenderness - Rectal Exam Rectal Exam: Deferred - Exam Exam: NORMAL INSPECTION - Extremities Exam Extremities Exam: Full ROM, Normal Capillary Refill, Normal Inspection. absent: Joint Swelling, Pedal Edema - Back Exam Back Exam: NORMAL INSPECTION - Neurological Exam Neurological Exam: Alert, Awake, CN II-XII Intact, Normal Gait, Oriented x3 - Psychiatric Exam Psychiatric exam: Normal Affect, Normal Mood - Skin Skin Exam: Dry, Intact, Normal Color, Warm Additional comments: dressings in tact no pus or foul smell Assessment and Plan (1) Wound of lower extremity Status: Acute (2) ESRD (end stage renal disease) on dialysis Status: Acute (3) Hypertension Status: Acute - Assessment and Plan (Free Text) Assessment: non healing ulcers r/o OM cont IV Vanco + Cipro for 6 weeks
--- NOTE | 2019-01-11 01:28 | PN ---
DATE: 01/10/2019 FOLLOWUP RENAL CONSULTATION LOCATION: The patient is located in room 368, bed A. REQUESTED BY: Luis Manuel Staton MD REASON FOR FOLLOWUP: End-stage renal disease, for continuation of the hemodialysis. SUBJECTIVE: Mr. Pandey is a 73-year-old elderly male with a past medical history significant for longstanding hypertension, diabetes, AFib, cardiomyopathy, peripheral vascular disease, end-stage renal disease, on hemodialysis three times a week on Saturday, Saturday and Saturday who was admitted from the half-way with necrotic Achilles tendon. The patient underwent debridement. Denies any chest pain or palpitation. Denies any fever or cough. No abdominal pain. No nausea, vomiting, or diarrhea. PHYSICAL EXAMINATION: VITAL SIGNS: As follows: Blood pressure 137/80, pulse 88, respiration 20, temperature 98.7, saturation 98%. Height 5 feet 9 inches, and weight is 159 pounds. GENERAL: Mr. Pandey is about 73-year-old elderly male, moderately built, moderately nourished, not in acute distress. HEENT: Pupils are normal and reactive to light and accommodation. Conjunctivae pink. Sclerae anicteric. Tongue is moist. Trachea is midline. LUNGS: Symmetric on both sides. Bilateral breath sounds present. Clear to auscultation. CARDIOVASCULAR SYSTEM: [place] at the fifth intercostal space, midclavicular line. S1 and S2 audible. No murmur. No gallop. ABDOMEN: Normal in appearance. Soft, tympanitic. No guarding. No rigidity. No hepatosplenomegaly. CENTRAL NERVOUS SYSTEM: The patient is alert, awake and oriented x3. Nonfocal neuro examination. Cranial nerves II through XII grossly intact. Sensory and motor system is within normal limits. EXTREMITIES: No cyanosis, no clubbing. The patient has a trace edema in both lower extremities, and also the patient has a dressing to the both legs. CURRENT MEDICATIONS: Include as follows: Ciprofloxacin 500 mg p.o. daily, Coreg 3.125 mg p.r.n., DuoNeb inhaler, Eliquis 2.5 mg p.o. b.i.d., lactulose 20 g p.o. daily, gentamicin 80 mg IV piggyback three times a week on Saturday, Saturday and Saturday, Nephro-Vivian one tablet, Neurontin 100 mg p.o. t.i.d., Percocet one to two tablets every 4 hours p.r.n. for pain, PhosLo 667 mg p.o. t.i.d., Proscar 5 mg p.o. daily, Robitussin 100 mg p.o. every 8 hours, Sensipar 60 mg p.o. daily, vancomycin 1 g three times a week, and Zemplar 4 mcg three times a week on Saturday, Saturday and Saturday. LABORATORY DATA: Include as follows: As of 01/08/2019, WBC 5.3, hemoglobin 9.7, hematocrit is 31.4, platelets 136. PT 14.3 and PTT 39. Sodium 132, potassium 4.2, chloride 92, CO2 of 27, BUN 36, creatinine 4.5, glucose 129 and calcium 9.7. No new labs available for today. ASSESSMENT AND PLAN: In summary, Mr. Pandey is a 73-year-old elderly male with a history of longstanding hypertension, diabetes, coronary artery disease, status post stents and status post pacemaker, atrial fibrillation, cardiomyopathy, end-stage renal disease, on hemodialysis three times a week with bilateral leg ulcers, status post debridement of about two weeks ago who was sent back from the half-way for necrotic right Achilles tendon and for debridement. The patient underwent debridement on and wound culture is positive for Pseudomonas. 1. End-stage renal disease. Continue hemodialysis three times a week on Saturday, Saturday and Saturday. 2. Hypertension. Blood pressure is stable. 3. Cardiomyopathy. 4. Bilateral leg ulcers with Achilles tendon necrosis and infection, status post debridement. Continue antibiotics with Cipro and gentamicin and vancomycin as per Infectious Disease and primary team. We will follow with you. Thank you for allowing me to participate in your patient's care. Restrict fluids to 1 L per day. We will change PhosLo to Renvela 800 mg by mouth three times a day. Continues Zemplar and Sensipar. We will check complete blood cell count, comprehensive metabolic panel, phosphorus, and parathyroid hormone level with the next hemodialysis on Saturday. Thank you for allowing me to participate in your patient's care. Gomez Vu MD [facility] # [id number]
[2019-01-11] MEDS: Albuterol-Ipratrop 3 mg / 0.5 (3 ml) UD INH SCH ×4 (01:31→19:45)
[2019-01-11] MEDS: Multivitamin Vitamin B Complex (Nephro-Vite) Tab PO SCH (09:14)
--- NOTE | 2019-01-11 10:51 | CP.PCM.PN ---
Subjective - Date & Time of Evaluation Date of Evaluation: 01/11/19 Time of Evaluation: 10:51 - Subjective Subjective: pt is seen and examined, follow up consult is dictated #[id number] Objective - Vital Signs/Intake and Output Vital Signs (last 24 hours): Temp Pulse Resp BP Pulse Ox 97.3 F L 84 20 137/91 H 100 01/11/19 07:00 01/11/19 07:00 01/11/19 07:00 01/11/19 07:00 01/11/19 07:00 Intake and Output: 01/11/19 01/11/19 06:59 18:59 Intake Total 250 150 Balance 250 150 - Medications Medications: Current Medications Acetaminophen (Tylenol 325mg Tab) 325 mg PO Q6 PRN PRN Reason: Pain, Mild (1-3) Albuterol/Ipratropium (Duoneb 3 Mg/0.5 Mg (3 Ml) Ud) 3 ml INH RQ6 ON LICENSE OF [facility] Last Admin: 01/11/19 01:31 Dose: Not Given Apixaban (Eliquis) 2.5 mg PO BID ON LICENSE OF [facility] Last Admin: 01/11/19 09:14 Dose: 2.5 mg Calcium Acetate (Phoslo) 667 mg PO TID ON LICENSE OF [facility] Last Admin: 01/11/19 09:14 Dose: 667 mg Carvedilol (Coreg) 3.125 mg PO PRN PRN PRN Reason: see below Last Admin: 01/08/19 06:30 Dose: 3.125 mg Cinacalcet (Sensipar) 60 mg PO DAILY ON LICENSE OF [facility] Last Admin: 01/11/19 09:14 Dose: 60 mg Ciprofloxacin (Cipro) 500 mg PO DAILY ON LICENSE OF [facility]; Protocol Last Admin: 01/11/19 09:14 Dose: 500 mg Finasteride (Proscar) 5 mg PO DAILY ON LICENSE OF [facility] Last Admin: 01/11/19 09:14 Dose: 5 mg Gabapentin (Neurontin) 100 mg PO TID ON LICENSE OF [facility] Last Admin: 01/11/19 09:14 Dose: 100 mg Guaifenesin (Robitussin) 100 mg PO Q8 PRN PRN Reason: Cough Vancomycin HCl 1 gm/ Sodium (Chloride) 250 mls @ 166.7 mls/hr IVPB MWF ON LICENSE OF [facility]; Protocol Last Admin: 01/09/19 15:51 Dose: 166.7 mls/hr Gentamicin Sulfate/Sodium Chloride (Gentamicin 80mg/100ml Ns) 80 mg in 100 mls @ 100 mls/hr IVPB MWF ON LICENSE OF [facility]; Protocol Last Admin: 01/09/19 13:18 Dose: 100 mls/hr Lactulose (Enulose) 20 gm PO DAILY YESI Last Admin: 01/11/19 09:14 Dose: 20 gm Paricalcitol (Zemplar) 4 mcg IV MWF ON LICENSE OF [facility] Last Admin: 01/09/19 09:27 Dose: 4 mcg Vitamin B Complex/Vit C/Folic Acid (Nephro-Vivian) 1 tab PO DAILY [facility]I Last Admin: 01/11/19 09:14 Dose: 1 tab - Labs Labs: 01/08/19 05:37 01/08/19 05:37 PT 14.3 SECONDS (9.7-12.2) H 01/08/19 05:37 INR 1.3 01/08/19 05:37 APTT 39 SECONDS (21-34) H 01/08/19 05:37
--- NOTE | 2019-01-11 11:01 | CP.PCM.PN ---
Subjective - Date & Time of Evaluation Date of Evaluation: 01/11/19 Time of Evaluation: 10:59 - Subjective Subjective: Podiatry Consult Note for attending Dr. Stein 73 year old male was evaluated 3 days s/p right Achilles tendon wound debridement. He is AAOx3 and NAD at time of visit. Reports that he has mild pain on the RLE. Denies any further pedal complaints. Patient aware he is going to be transferred to a subacute rehab facility. Denies any recent N/V/F/C/CP/SOB/D. Objective - Vital Signs/Intake and Output Vital Signs (last 24 hours): Temp Pulse Resp BP Pulse Ox 97.3 F L 84 20 137/91 H 100 01/11/19 07:00 01/11/19 07:00 01/11/19 07:00 01/11/19 07:00 01/11/19 07:00 Intake and Output: 01/11/19 01/11/19 06:59 18:59 Intake Total 250 150 Balance 250 150 - Medications Medications: Current Medications Acetaminophen (Tylenol 325mg Tab) 325 mg PO Q6 PRN PRN Reason: Pain, Mild (1-3) Albuterol/Ipratropium (Duoneb 3 Mg/0.5 Mg (3 Ml) Ud) 3 ml INH RQ6 [facility] Last Admin: 01/11/19 01:31 Dose: Not Given Apixaban (Eliquis) 2.5 mg PO BID [facility] Last Admin: 01/11/19 09:14 Dose: 2.5 mg Calcium Acetate (Phoslo) 667 mg PO TID [facility] Last Admin: 01/11/19 09:14 Dose: 667 mg Carvedilol (Coreg) 3.125 mg PO PRN PRN PRN Reason: see below Last Admin: 01/08/19 06:30 Dose: 3.125 mg Cinacalcet (Sensipar) 60 mg PO DAILY [facility] Last Admin: 01/11/19 09:14 Dose: 60 mg Ciprofloxacin (Cipro) 500 mg PO DAILY [facility]; Protocol Last Admin: 01/11/19 09:14 Dose: 500 mg Finasteride (Proscar) 5 mg PO DAILY [facility] Last Admin: 01/11/19 09:14 Dose: 5 mg Gabapentin (Neurontin) 100 mg PO TID [facility] Last Admin: 01/11/19 09:14 Dose: 100 mg Guaifenesin (Robitussin) 100 mg PO Q8 PRN PRN Reason: Cough Vancomycin HCl 1 gm/ Sodium (Chloride) 250 mls @ 166.7 mls/hr IVPB MWF [facility]; Protocol Last Admin: 01/09/19 15:51 Dose: 166.7 mls/hr Gentamicin Sulfate/Sodium Chloride (Gentamicin 80mg/100ml Ns) 80 mg in 100 mls @ 100 mls/hr IVPB MWF [facility]; Protocol Last Admin: 01/09/19 13:18 Dose: 100 mls/hr Lactulose (Enulose) 20 gm PO DAILY [facility] Last Admin: 01/11/19 09:14 Dose: 20 gm Paricalcitol (Zemplar) 4 mcg IV MWF [facility] Last Admin: 01/09/19 09:27 Dose: 4 mcg Vitamin B Complex/Vit C/Folic Acid (Nephro-Vivian) 1 tab PO DAILY [facility] Last Admin: 01/11/19 09:14 Dose: 1 tab - Labs Labs: 01/08/19 05:37 01/08/19 05:37 PT 14.3 SECONDS (9.7-12.2) H 01/08/19 05:37 INR 1.3 01/08/19 05:37 APTT 39 SECONDS (21-34) H 01/08/19 05:37 - Constitutional Appears: Well, Non-toxic, No Acute Distress - Head Exam Head Exam: ATRAUMATIC, NORMOCEPHALIC - Extremities Exam Additional comments: Lower Extremity Focused Exam Vasc: DP/PT pulses faintly palpable 1/4 b/l. Skin temperature warm to warm from proximal to distal WNL. CFT < 3 seconds to all digits b/l. Minimal, diffuse edema noted to b/l lower extremities Neuro: Epicritic and protective sensation grossly intact b/l Derm: RIGHT- Ulceration #1: 4 cm x 3 cm x 0.3 cm ulceration noted to lateral lower leg. Wound base is granular in nature. No erythema, malodor, drainage, tracking, tunneling or undermining. No evidence of infection appreciated. Ulceration #2 and #3: approximately 1 cm x 1 cm x 0.1 cm ulcerations noted along length of achilles tendon, wound bed granular, No erythema, malodor, drainage, tracking, tunneling or undermining. No evidence of infection appreciated LEFT- dressing clean, dry and intact, no strike through noted MSK: Pain on palpation to all ulceration sites. Diffuse pain to b/l LE R>L. No gross deformities appreciated - Neurological Exam Neurological Exam: Alert, Awake, Oriented x3 - Psychiatric Exam Psychiatric exam: Normal Affect, Normal Mood Assessment and Plan - Assessment and Plan (Free Text) Assessment: 73 year old male evaluated 3 days s/p right Achilles tendon wound debridement Plan: Patient seen and evaluated Discussed plan with Dr. Stein Afebrile, absent leukocytosis B/l ankle xrays: Right ankle - Deep ulcer without adjacent underlying radiographic evidence of acute osteomyelitis. Left ankle - Soft tissue swelling without acute articular or osseous abnormality. Bone scan: Pending final read Infectious disease consult - recommendations appreciated Vascular consult, recs appreciated Pre-op wound culture from lateral right leg taken: Pseudomonas Aeruginosa; Corynebacterium Intra-op wound culture: G- Rods Multipodus boots to be worn in bed at all times Stable from podiatry standpoint and can be d/c after bone scan Podiatry will continue to follow while patient in house
--- NOTE | 2019-01-12 02:00 | PN ---
DATE: 01/11/2019 FOLLOWUP RENAL CONSULTATION LOCATION: The patient is located in room 368, bed A. REQUESTED BY: Luis Manuel Staton MD REASON FOR FOLLOWUP: End-stage renal disease, continuation hemodialysis and bilateral leg ulcers, status post debridement of the right Achilles tendon. SUBJECTIVE: Mr. Pandey is a 73-year-old elderly male with a past medical history significant for longstanding hypertension; diabetes; AFib; cardiomyopathy; coronary artery disease, status post stent placement and pacemaker; end-stage renal disease, on hemodialysis three times a week, Saturday, Saturday, and Saturday, was admitted to [facility] with bilateral leg ulcers and the patient underwent debridement of the leg ulcers about two weeks now. The patient was readmitted after referring from Podiatry for debridement of the Achilles tendon necrosis. The patient underwent surgery on . The patient is not in acute distress. Denies any headache, dizziness. Denies any chest pain or palpitation. Denies any fever or cough. No abdominal pain. No nausea, vomiting, diarrhea. The patient is on IV antibiotics. PHYSICAL EXAMINATION: VITAL SIGNS: As follows: Blood pressure 137/91, pulse 84, respirations 20, temperature 97.3, saturation 100%. Height 5 feet 9 inches, weight is 159 pounds. On 2 liters nasal cannula. GENERAL: Mr. Pandey is a 73-year-old elderly male, moderately built, moderately nourished, not in acute distress. HEENT: Pupils normal, reactive to light and accommodation. Conjunctivae pink. Sclerae anicteric. Tongue is moist and trachea is midline. LUNGS: Symmetric on both sides. Bilateral breath sounds present. Clear to auscultation. CARDIOVASCULAR SYSTEM: [place] at the fifth intercostal space, midclavicular line. S1 and S2 audible. No murmur or gallop. ABDOMEN: Normal in appearance, soft, tympanitic. No guarding. No rigidity. No hepatosplenomegaly. CENTRAL NERVOUS SYSTEM: The patient is alert, awake, oriented x3. Nonfocal neuro examination. Cranial nerves II-XII grossly intact. Sensory and motor system within normal limits. EXTREMITIES: No cyanosis, no clubbing. The patient has dressing to both ankles. CURRENT MEDICATIONS: Include as follows: Cipro 500 mg p.o. daily, Coreg 3.125 mg p.o. p.r.n., albuterol inhaler and ipratropium inhaler every 6 hours, Eliquis 2.5 mg p.o. b.i.d., lactulose 20 g p.o. daily, gentamicin 80 mg IV piggyback three times a week, Saturday, Saturday and Saturday, Nephro-Vivian one tablet daily, gabapentin 100 mg p.o. t.i.d., calcium acetate 667 mg p.o. t.i.d., Proscar 5 mg p.o. daily, Robitussin 100 mg p.o. every 8 hours p.r.n., Sensipar 60 mg p.o. daily, Tylenol, vancomycin 1 g three times a week, and Zemplar 4 mcg IV piggyback three times a week, Saturday, Saturday, and Saturday. LABORATORY DATA: No new labs available for today. ASSESSMENT AND PLAN: In summary, Mr. Pandey is a 73-year-old elderly male with history of longstanding hypertension, diabetes, end-stage renal disease, coronary artery disease, status post stent, atrial fibrillation, cardiomyopathy, status post pacemaker placement with bilateral leg ulcers, status post debridement two weeks ago, was sent from the [facility] by Podiatry status post debridement of the necrotic ulcer of the Achilles tendon. 1. End-stage renal disease. Continue hemodialysis three times a week, Saturday, Saturday, and Saturday. 2. Anemia secondary to renal failure. 3. Status post debridement of the Achilles tendon, wound culture is positive for Pseudomonas. Continue antibiotics as per Infectious Disease recommendation, Cipro, gentamicin, and vancomycin. Continue wound care as per Podiatry. 4. Diabetes. 5. Hypertension. Blood pressure is stable. 6. Secondary hyperparathyroidism. Continue Zemplar and Sensipar. We will continue Nephro-Vivian. We will add Procrit. We will follow with you. Thank you for allowing me to participate in your patient's care. Gomez Vu MD
[2019-01-12] MEDS: Albuterol-Ipratrop 3 mg / 0.5 (3 ml) UD INH SCH ×4 (02:56→13:29)
[2019-01-12 06:54] LABS: HEMOGLOBIN 10.3 g/dL (12.0-18.0); MEAN CELL VOLUME 92.5 fL (80.0-94.0); MEAN CORPUSCULAR HEMOGLOBIN 28.9 pg (27.0-31.0); MEAN CORPUSCULAR HGB CONC 31.2 g/dL (33.0-37.0); MEAN PLATELET VOLUME 8.4 fL (7.2-11.7); RBC 3.56 Mil/uL (4.40-5.90); RED CELL DISTRIBUTION WIDTH 25.2 % (11.5-14.5); WHITE BLOOD COUNT 5.9 K/uL (4.8-10.8)
[2019-01-12 07:47] LABS: ALB/GLOB RATIO 1.3 (1.0-2.1); ALBUMIN 3.6 g/dL (3.5-5.0); CALCIUM 8.6 mg/dl (8.6-10.4)
[2019-01-12 09:08] VITALS: O2SAT 100
--- NOTE | 2019-01-12 10:00 | NM ---
Date of service: 01/09/2019 PROCEDURE: Three-phase bone scan HISTORY: Decubitus ulcer, osteomyelitis suspected. COMPARISON: 01/06/2019 plain film radiographs both ankles TECHNIQUE: Following administration of 24.6 mCi of Tc MDP three-phase bone scan performed. FINDINGS: Flow component: Markedly increase flow to the right lower extremity. This particularly evident about the lateral aspect of the right lower extremity above the ankle consistent with findings on recent radiographs. Blood pool component: Intense accumulation of radionuclide within the soft tissues right lower extremity. Delayed images at 3:00: Accumulation/retention of radionuclide in both calcaneal regions. Degenerative changes in both knees. Other findings: None. IMPRESSION: Findings consistent with cellulitis particularly above the right ankle. No evidence of osteomyelitis. Additional benign and/or incidental findings described above.
[2019-01-12] MEDS ORDERED: Epoetin Alfa 10,000 unit/ml Dialysis IV SCH ×2 (10:01→10:30)
[2019-01-12] MEDS: Multivitamin Vitamin B Complex (Nephro-Vite) Tab PO SCH (10:04)
[2019-01-12] MEDS: Gentamicin 80 mg in 0.9% NS 80 MG/100 ML BAG IVPB SCH ×2 (10:04→13:27)
[2019-01-12] MEDS: Paricalcitol 2 mcg/ml Inj IV SCH (10:32)
--- NOTE | 2019-01-12 11:42 | CP.PCM.PN ---
Subjective - Date & Time of Evaluation Date of Evaluation: 01/12/19 Time of Evaluation: 08:00 - Subjective Subjective: seen on rounds await bone scan orders signed Objective - Vital Signs/Intake and Output Vital Signs (last 24 hours): Temp Pulse Resp BP Pulse Ox 98.1 F 93 H 18 126/72 100 01/12/19 08:50 01/12/19 08:50 01/12/19 08:50 01/12/19 11:20 01/12/19 08:50 Intake and Output: 01/12/19 01/12/19 06:59 18:59 Intake Total 30 Balance 30 - Medications Medications: Current Medications Acetaminophen (Tylenol 325mg Tab) 325 mg PO Q6 PRN PRN Reason: Pain, Mild (1-3) Albuterol/Ipratropium (Duoneb 3 Mg/0.5 Mg (3 Ml) Ud) 3 ml INH RQ6 [facility] Last Admin: 01/12/19 03:13 Dose: 3 ml Apixaban (Eliquis) 2.5 mg PO BID [facility] Last Admin: 01/12/19 10:04 Dose: Not Given Calcium Acetate (Phoslo) 667 mg PO TID [facility] Last Admin: 01/12/19 10:04 Dose: Not Given Carvedilol (Coreg) 3.125 mg PO PRN PRN PRN Reason: see below Last Admin: 01/08/19 06:30 Dose: 3.125 mg Cinacalcet (Sensipar) 60 mg PO DAILY [facility] Last Admin: 01/12/19 10:05 Dose: Not Given Ciprofloxacin (Cipro) 500 mg PO DAILY [facility]; Protocol Last Admin: 01/12/19 10:04 Dose: Not Given Epoetin N[place] (Procrit) 10,000 [place] [facility] [place] Last Admin: 01/12/19 10:31 Dose: 10,000 unit Finasteride (Proscar) 5 mg PO DAILY [facility] Last Admin: 01/12/19 10:04 Dose: Not Given Gabapentin (Neurontin) 100 mg PO TID [facility] Last Admin: 01/12/19 10:04 Dose: Not Given Guaifenesin (Robitussin) 100 mg PO Q8 PRN PRN Reason: Cough Vancomycin HCl 1 gm/ Sodium (Chloride) 250 mls @ 166.7 mls/hr [place]PB [facility] [place] Protocol Last Admin: 01/12/19 10:05 Dose: Not Given Gentamicin Sulfate/Sodium Chloride (Gentamicin 80mg/100ml Ns) 80 mg in 100 mls @ 100 mls/hr IVPB MWF [facility]; Protocol Last Admin: 01/12/19 10:04 Dose: Not Given Lactulose (Enulose) 20 gm PO DAILY [facility] Last Admin: 01/12/19 10:04 Dose: Not Given Paricalcitol (Zemplar) 4 mcg IV MWF [facility] Last Admin: 01/12/19 10:32 Dose: 4 mcg Vitamin B Complex/Vit C/Folic Acid (Nephro-Vivian) 1 tab PO DAILY [facility] Last Admin: 01/12/19 10:04 Dose: Not Given - Labs Labs: 01/12/19 06:47 01/12/19 06:47 PT 14.3 SECONDS (9.7-12.2) H 01/08/19 05:37 INR 1.3 01/08/19 05:37 APTT 39 SECONDS (21-34) H 01/08/19 05:37 - Constitutional Appears: Non-toxic, Chronically Ill - Head Exam Head Exam: ATRAUMATIC, NORMAL INSPECTION, NORMOCEPHALIC - Eye Exam Eye Exam: EOMI, Normal appearance, PERRL Pupil Exam: NORMAL ACCOMODATION, PERRL - ENT Exam ENT Exam: Mucous Membranes Moist, Normal Exam - Neck Exam Neck Exam: Full ROM, Normal Inspection. absent: Lymphadenopathy - Respiratory Exam Respiratory Exam: Clear to Ausculation Bilateral, NORMAL BREATHING PATTERN - Cardiovascular Exam Cardiovascular Exam: REGULAR RHYTHM, +S1, +S2. absent: Murmur - GI/Abdominal Exam GI & Abdominal Exam: Soft, Normal Bowel Sounds. absent: Tenderness - Rectal Exam Rectal Exam: Deferred - Extremities Exam Extremities Exam: Full ROM, Normal Capillary Refill, Normal Inspection. absent: Joint Swelling, Pedal Edema - Back Exam Back Exam: NORMAL INSPECTION - Neurological Exam Neurological Exam: Alert, Awake, CN II-XII Intact, Oriented x3. absent: Normal Gait - Psychiatric Exam Psychiatric exam: Normal Affect, Normal Mood - Skin Skin Exam: Dry, Intact, Normal Color, Warm Assessment and Plan (1) Wound of lower extremity Status: Acute (2) ESRD (end stage renal disease) on dialysis Status: Acute (3) Hypertension Status: Acute - Assessment and Plan (Free Text) Assessment: cont iv rx for 14 days total then reasess
--- NOTE | 2019-01-12 13:01 | CP.PCM.PN ---
Subjective - Date & Time of Evaluation Date of Evaluation: 01/12/19 Time of Evaluation: 13:00 - Subjective Subjective: pt is seen and examined during hd, uf 3.2 lit, follow up consult is dictated #[id number] Objective - Vital Signs/Intake and Output Vital Signs (last 24 hours): Temp Pulse Resp BP Pulse Ox 98.1 F 93 H 18 124/74 100 01/12/19 08:50 01/12/19 08:50 01/12/19 08:50 01/12/19 11:50 01/12/19 08:50 Intake and Output: 01/12/19 01/12/19 06:59 18:59 Intake Total 30 Balance 30 - Medications Medications: Current Medications Acetaminophen (Tylenol 325mg Tab) 325 mg PO Q6 PRN PRN Reason: Pain, Mild (1-3) Albuterol/Ipratropium (Duoneb 3 Mg/0.5 Mg (3 Ml) Ud) 3 ml INH RQ6 [facility] Last Admin: 01/12/19 03:13 Dose: 3 ml Apixaban (Eliquis) 2.5 mg PO BID [facility] Last Admin: 01/12/19 10:04 Dose: Not Given Calcium Acetate (Phoslo) 667 mg PO TID [facility] Last Admin: 01/12/19 10:04 Dose: Not Given Carvedilol (Coreg) 3.125 mg PO PRN PRN PRN Reason: see below Last Admin: 01/08/19 06:30 Dose: 3.125 mg Cinacalcet (Sensipar) 60 mg PO DAILY [facility] Last Admin: 01/12/19 10:05 Dose: Not Given Ciprofloxacin (Cipro) 500 mg PO DAILY [facility]; Protocol Last Admin: 01/12/19 10:04 Dose: Not Given Epoetin Nav (Procrit) 10,000 unit IV MWF [facility] Last Admin: 01/12/19 10:31 Dose: 10,000 unit Finasteride (Proscar) 5 mg PO DAILY [facility] Last Admin: 01/12/19 10:04 Dose: Not Given Gabapentin (Neurontin) 100 mg PO TID [facility] Last Admin: 01/12/19 10:04 Dose: Not Given Guaifenesin (Robitussin) 100 mg PO Q8 PRN PRN Reason: Cough Vancomycin HCl 1 gm/ Sodium (Chloride) 250 mls @ 166.7 mls/hr IVPB MWF [facility]; Protocol Last Admin: 01/12/19 10:05 Dose: Not Given Gentamicin Sulfate/Sodium Chloride (Gentamicin 80mg/100ml Ns) 80 mg in 100 mls @ 100 mls/hr IVPB MWF [facility]; Protocol Last Admin: 01/12/19 10:04 Dose: Not Given Lactulose (Enulose) 20 gm PO DAILY [facility] Last Admin: 01/12/19 10:04 Dose: Not Given Paricalcitol (Zemplar) 4 mcg IV MWF [facility] Last Admin: 01/12/19 10:32 Dose: 4 mcg Vitamin B Complex/Vit C/Folic Acid (Nephro-Vivian) 1 tab PO DAILY [facility] Last Admin: 01/12/19 10:04 Dose: Not Given - Labs Labs: 01/12/19 06:47 01/12/19 06:47 PT 14.3 SECONDS (9.7-12.2) H 01/08/19 05:37 INR 1.3 01/08/19 05:37 APTT 39 SECONDS (21-34) H 01/08/19 05:37
--- NOTE | 2019-01-12 15:17 | CP.PCM.PN ---
Subjective - Date & Time of Evaluation Date of Evaluation: 01/07/19 Time of Evaluation: 15:17 Objective - Vital Signs/Intake and Output Vital Signs (last 24 hours): Temp Pulse Resp BP Pulse Ox 97.2 F L 84 16 129/89 100 01/12/19 12:20 01/12/19 12:20 01/12/19 12:20 01/12/19 12:20 01/12/19 12:20 Intake and Output: 01/12/19 01/12/19 06:59 18:59 Intake Total 530 Balance 530 - Medications Medications: Current Medications Acetaminophen (Tylenol 325mg Tab) 325 mg PO Q6 PRN PRN Reason: Pain, Mild (1-3) Albuterol/Ipratropium (Duoneb 3 Mg/0.5 Mg (3 Ml) Ud) 3 ml INH RQ6 [facility] Last Admin: 01/12/19 13:29 Dose: 3 ml Apixaban (Eliquis) 2.5 mg PO BID [facility] Last Admin: 01/12/19 10:04 Dose: Not Given Calcium Acetate (Phoslo) 667 mg PO TID [facility] Last Admin: 01/12/19 13:26 Dose: 667 mg Carvedilol (Coreg) 3.125 mg PO PRN PRN PRN Reason: see below Last Admin: 01/08/19 06:30 Dose: 3.125 mg Cinacalcet (Sensipar) 60 mg PO DAILY [facility] Last Admin: 01/12/19 10:05 Dose: Not Given Ciprofloxacin (Cipro) 500 mg PO DAILY [facility]; Protocol Last Admin: 01/12/19 13:28 Dose: 500 mg Epoetin Nav (Procrit) 10,000 unit IV [facility] [place] Last Admin: 01/12/19 10:31 Dose: 10,000 unit Finasteride (Proscar) 5 mg PO DAILY [facility] Last Admin: 01/12/19 13:25 Dose: 5 mg Gabapentin (Neurontin) 100 mg PO TID [facility] Last Admin: 01/12/19 13:26 Dose: 100 mg Guaifenesin (Robitussin) 100 mg PO Q8 PRN PRN Reason: Cough Vancomycin HCl 1 gm/ Sodium (Chloride) 250 mls @ 166.7 mls/hr IVPB [facility] [place]; Protocol Last Admin: 01/12/19 14:15 Dose: 166.7 mls/hr Gentamicin Sulfate/Sodium Chloride (Gentamicin 80mg/100ml Ns) 80 mg in 100 mls @ 100 mls/hr IVPB MWF [facility]; Protocol Last Admin: 01/12/19 13:27 Dose: 100 mls/hr Lactulose (Enulose) 20 gm PO DAILY [facility] Last Admin: 01/12/19 10:04 Dose: Not Given Paricalcitol (Zemplar) 4 mcg IV MWF [facility] Last Admin: 01/12/19 10:32 Dose: 4 mcg Vitamin B Complex/Vit C/Folic Acid (Nephro-Vivian) 1 tab PO DAILY [facility] Last Admin: 01/12/19 10:04 Dose: Not Given - Labs Labs: 01/12/19 06:47 01/12/19 06:47 PT 14.3 SECONDS (9.7-12.2) H 01/08/19 05:37 INR 1.3 01/08/19 05:37 APTT 39 SECONDS (21-34) H 01/08/19 05:37
--- NOTE | 2019-01-12 15:17 | CP.PCM.PN ---
Subjective - Date & Time of Evaluation Date of Evaluation: 01/10/19 Time of Evaluation: 15:17 Objective - Vital Signs/Intake and Output Vital Signs (last 24 hours): Temp Pulse Resp BP Pulse Ox 97.2 F L 84 16 129/89 100 01/12/19 12:20 01/12/19 12:20 01/12/19 12:20 01/12/19 12:20 01/12/19 12:20 Intake and Output: 01/12/19 01/12/19 06:59 18:59 Intake Total 530 Balance 530 - Medications Medications: Current Medications Acetaminophen (Tylenol 325mg Tab) 325 mg PO Q6 PRN PRN Reason: Pain, Mild (1-3) Albuterol/Ipratropium (Duoneb 3 Mg/0.5 Mg (3 Ml) Ud) 3 ml INH RQ6 [facility] Last Admin: 01/12/19 13:29 Dose: 3 ml Apixaban (Eliquis) 2.5 mg PO BID [facility] Last Admin: 01/12/19 10:04 Dose: Not Given Calcium Acetate (Phoslo) 667 mg PO TID [facility] Last Admin: 01/12/19 13:26 Dose: 667 mg Carvedilol (Coreg) 3.125 mg PO PRN PRN PRN Reason: see below Last Admin: 01/08/19 06:30 Dose: 3.125 mg Cinacalcet (Sensipar) 60 mg PO DAILY [facility] Last Admin: 01/12/19 10:05 Dose: Not Given Ciprofloxacin (Cipro) 500 mg PO DAILY [facility]; Protocol Last Admin: 01/12/19 13:28 Dose: 500 mg Epoetin Nav (Procrit) 10,000 unit IV [facility] [place] Last Admin: 01/12/19 10:31 Dose: 10,000 unit Finasteride (Proscar) 5 mg PO DAILY [facility] Last Admin: 01/12/19 13:25 Dose: 5 mg Gabapentin (Neurontin) 100 mg PO TID [facility] Last Admin: 01/12/19 13:26 Dose: 100 mg Guaifenesin (Robitussin) 100 mg PO Q8 PRN PRN Reason: Cough Vancomycin HCl 1 gm/ Sodium (Chloride) 250 mls @ 166.7 mls/hr IVPB [facility] [place]; Protocol Last Admin: 01/12/19 14:15 Dose: 166.7 mls/hr Gentamicin Sulfate/Sodium Chloride (Gentamicin 80mg/100ml Ns) 80 mg in 100 mls @ 100 mls/hr IVPB MWF [facility]; Protocol Last Admin: 01/12/19 13:27 Dose: 100 mls/hr Lactulose (Enulose) 20 gm PO DAILY [facility] Last Admin: 01/12/19 10:04 Dose: Not Given Paricalcitol (Zemplar) 4 mcg IV MWF [facility] Last Admin: 01/12/19 10:32 Dose: 4 mcg Vitamin B Complex/Vit C/Folic Acid (Nephro-Vivian) 1 tab PO DAILY [facility] Last Admin: 01/12/19 10:04 Dose: Not Given - Labs Labs: 01/12/19 06:47 01/12/19 06:47 PT 14.3 SECONDS (9.7-12.2) H 01/08/19 05:37 INR 1.3 01/08/19 05:37 APTT 39 SECONDS (21-34) H 01/08/19 05:37
--- NOTE | 2019-01-12 15:17 | CP.PCM.PN ---
Subjective - Date & Time of Evaluation Date of Evaluation: 01/11/19 Objective - Vital Signs/Intake and Output Vital Signs (last 24 hours): Temp Pulse Resp BP Pulse Ox 97.2 F L 84 16 129/89 100 01/12/19 12:20 01/12/19 12:20 01/12/19 12:20 01/12/19 12:20 01/12/19 12:20 Intake and Output: 01/12/19 01/12/19 06:59 18:59 Intake Total 530 Balance 530 - Medications Medications: Current Medications Acetaminophen (Tylenol 325mg Tab) 325 mg PO Q6 PRN PRN Reason: Pain, Mild (1-3) Albuterol/Ipratropium (Duoneb 3 Mg/0.5 Mg (3 Ml) Ud) 3 ml INH RQ6 [facility] Last Admin: 01/12/19 13:29 Dose: 3 ml Apixaban (Eliquis) 2.5 mg PO BID [facility] Last Admin: 01/12/19 10:04 Dose: Not Given Calcium Acetate (Phoslo) 667 mg PO TID [facility] Last Admin: 01/12/19 13:26 Dose: 667 mg Carvedilol (Coreg) 3.125 mg PO PRN PRN PRN Reason: see below Last Admin: 01/08/19 06:30 Dose: 3.125 mg Cinacalcet (Sensipar) 60 mg PO DAILY [facility] Last Admin: 01/12/19 10:05 Dose: Not Given Ciprofloxacin (Cipro) 500 mg PO DAILY [facility]; Protocol Last Admin: 01/12/19 13:28 Dose: 500 mg Epoetin Nav (Procrit) 10,000 unit IV [facility] Last Admin: 01/12/19 10:31 Dose: 10,000 unit Finasteride (Proscar) 5 mg PO DAILY [facility] Last Admin: 01/12/19 13:25 Dose: 5 mg Gabapentin (Neurontin) 100 mg PO TID [facility] Last Admin: 01/12/19 13:26 Dose: 100 mg Guaifenesin (Robitussin) 100 mg PO Q8 PRN PRN Reason: Cough Vancomycin HCl 1 gm/ Sodium (Chloride) 250 mls @ 166.7 [facility] Last Admin: 01/12/19 14:15 Dose: 166.7 mls/hr Gentamicin Sulfate/Sodium Chloride (Gentamicin 80mg/100ml Ns) 80 mg in 100 mls @ 100 mls/hr IVPB MWF [facility]; Protocol Last Admin: 01/12/19 13:27 Dose: 100 mls/hr Lactulose (Enulose) 20 gm PO DAILY [facility] Last Admin: 01/12/19 10:04 Dose: Not Given Paricalcitol (Zemplar) 4 mcg IV MWF [facility] Last Admin: 01/12/19 10:32 Dose: 4 mcg Vitamin B Complex/Vit C/Folic Acid (Nephro-Vivian) 1 tab PO DAILY [facility] Last Admin: 01/12/19 10:04 Dose: Not Given - Labs Labs: 01/12/19 06:47 01/12/19 06:47 PT 14.3 SECONDS (9.7-12.2) H 01/08/19 05:37 INR 1.3 01/08/19 05:37 APTT 39 SECONDS (21-34) H 01/08/19 05:37
--- NOTE | 2019-01-12 15:18 | CP.PCM.PN ---
Subjective - Date & Time of Evaluation Date of Evaluation: 01/12/19 Time of Evaluation: 15:17 Objective - Vital Signs/Intake and Output Vital Signs (last 24 hours): Temp Pulse Resp BP Pulse Ox 97.2 F L 84 16 129/89 100 01/12/19 12:20 01/12/19 12:20 01/12/19 12:20 01/12/19 12:20 01/12/19 12:20 Intake and Output: 01/12/19 01/12/19 06:59 18:59 Intake Total 530 Balance 530 - Medications Medications: Current Medications Acetaminophen (Tylenol 325mg Tab) 325 mg PO Q6 PRN PRN Reason: Pain, Mild (1-3) Albuterol/Ipratropium (Duoneb 3 Mg/0.5 Mg (3 Ml) Ud) 3 ml INH RQ6 [facility] Last Admin: 01/12/19 13:29 Dose: 3 ml Apixaban (Eliquis) 2.5 mg PO BID [facility] Last Admin: 01/12/19 10:04 Dose: Not Given Calcium Acetate (Phoslo) 667 mg PO TID [facility] Last Admin: 01/12/19 13:26 Dose: 667 mg Carvedilol (Coreg) 3.125 mg PO PRN PRN PRN Reason: see below Last Admin: 01/08/19 06:30 Dose: 3.125 mg Cinacalcet (Sensipar) 60 mg PO DAILY [facility] Last Admin: 01/12/19 10:05 Dose: Not Given Ciprofloxacin (Cipro) 500 mg PO DAILY [facility]; Protocol Last Admin: 01/12/19 13:28 Dose: 500 mg Epoetin Nav (Procrit) 10,000 unit IV [facility] Last Admin: 01/12/19 10:31 Dose: 10,000 unit Finasteride (Proscar) 5 mg PO DAILY [facility] Last Admin: 01/12/19 13:25 Dose: 5 mg Gabapentin (Neurontin) 100 mg PO TID [facility] Last Admin: 01/12/19 13:26 Dose: 100 mg Guaifenesin (Robitussin) 100 mg PO Q8 PRN PRN Reason: Cough Vancomycin HCl 1 gm/ Sodium (Chloride) 250 mls @ 166.7 mls/hr IVPB [facility]; Protocol Last Admin: 01/12/19 14:15 Dose: 166.7 mls/hr Gentamicin Sulfate/Sodium Chloride (Gentamicin 80mg/100ml Ns) 80 mg in 100 mls @ 100 mls/hr IVPB MWF [facility]; Protocol Last Admin: 01/12/19 13:27 Dose: 100 mls/hr Lactulose (Enulose) 20 gm PO DAILY [facility] Last Admin: 01/12/19 10:04 Dose: Not Given Paricalcitol (Zemplar) 4 mcg IV MWF [facility] Last Admin: 01/12/19 10:32 Dose: 4 mcg Vitamin B Complex/Vit C/Folic Acid (Nephro-Vivian) 1 tab PO DAILY [facility] Last Admin: 01/12/19 10:04 Dose: Not Given - Labs Labs: 01/12/19 06:47 01/12/19 06:47 PT 14.3 SECONDS (9.7-12.2) H 01/08/19 05:37 INR 1.3 01/08/19 05:37 APTT 39 SECONDS (21-34) H 01/08/19 05:37
--- NOTE | 2019-01-12 15:18 | CP.PCM.DIS ---
Provider - Provider Date of Admission: 01/06/19 18:34 Attending physician: Luis Manuel Staton MD Consults: 01/06/19 20:02 Infectious Disease Consult Routine Comment: Consulting Provider: Giuseppe Packer Consulting Physician: Giuseppe Packer Reason for Consult: Lower extremity ulcerations Vascular Surgery Routine Comment: Consulting Provider: Hammad Langford Jr. Physician Instructions: Reason For Exam: B/l LE wounds 01/06/19 20:55 Nursing Referral for Wound Care Routine Comment: Physician Instructions: Reason For Exam: new admit / jessa lower extremities wound 01/06/19 21:04 Nephrology Consult Routine Comment: Consulting Provider: Gomez Vu Consulting Physician: Gomez Vu Reason for Consult: esrd HD Hospital Course - Lab Results Lab Results: Micro Results 01/06/19 17:48 Blood Blood Culture - Final NO GROWTH AFTER 5 DAYS 01/06/19 17:48 Blood Gram Stain - Final TEST NOT PERFORMED 01/06/19 16:45 Blood Blood Culture - Final NO GROWTH AFTER 5 DAYS 01/06/19 16:45 Blood Gram Stain - Final TEST NOT PERFORMED 01/08/19 14:35 Leg - Right Gram Stain - Final 01/08/19 14:35 Leg - Right Wound Culture - Final Serratia Marcescens 01/06/19 20:23 Ankle - Right Gram Stain - Final 01/06/19 20:23 Ankle - Right Wound Culture - Final Pseudomonas Aeruginosa Corynebacterium Species Most Recent Lab Values WBC 5.9 K/uL (4.8-10.8) 01/12/19 06:47 RBC 3.56 Mil/uL (4.40-5.90) L 01/12/19 06:47 Hgb 10.3 g/dL (12.0-18.0) L 01/12/19 06:47 Hct 32.9 % (35.0-51.0) L 01/12/19 06:47 MCV 92.5 fL (80.0-94.0) 01/12/19 06:47 MCH 28.9 pg (27.0-31.0) 01/12/19 06:47 MCHC 31.2 g/dL (33.0-37.0) L 01/12/19 06:47 RDW 25.2 % (11.5-14.5) H 01/12/19 06:47 Plt Count 145 K/uL (130-400) 01/12/19 06:47 MPV 8.4 fL (7.2-11.7) 01/12/19 06:47 Neut % (Auto) 78.3 % (50.0-75.0) H 01/08/19 05:37 Lymph % (Auto) 9.5 % (20.0-40.0) L 01/08/19 05:37 Dale % (Auto) 9.1 % (0.0-10.0) 01/08/19 05:37 Eos % (Auto) 1.5 % (0.0-4.0) 01/08/19 05:37 Baso % (Auto) 1.6 % (0.0-2.0) 01/08/19 05:37 Neut # (Auto) 4.2 K/uL (1.8-7.0) 01/08/19 05:37 Lymph # (Auto) 0.5 K/uL (1.0-4.3) L 01/08/19 05:37 Dale # (Auto) 0.5 K/uL (0.0-0.8) 01/08/19 05:37 Eos # (Auto) 0.1 K/uL (0.0-0.7) 01/08/19 05:37 Baso # (Auto) 0.1 K/uL (0.0-0.2) 01/08/19 05:37 Neutrophils % (Manual) 90 % (50-75) H 01/08/19 05:37 Lymphocytes % (Manual) 6 % (20-40) L 01/08/19 05:37 Monocytes % (Manual) 4 % (0-10) 01/08/19 05:37 Eosinophils % (Manual) 4 % (0-4) 01/06/19 17:08 Platelet Estimate Normal (NORMAL) 01/08/19 05:37 Polychromasia Slight 01/08/19 05:37 Hypochromasia (manual) Slight 01/08/19 05:37 Anisocytosis (manual) Slight 01/08/19 05:37 Target Cells Slight 01/08/19 05:37 Tear Drop Cells Slight 01/08/19 05:37 Ovalocytes Slight 01/08/19 05:37 PT 14.3 SECONDS (9.7-12.2) H 01/08/19 05:37 INR 1.3 01/08/19 05:37 APTT 39 SECONDS (21-34) H 01/08/19 05:37 Sodium 127 mmol/L (132-148) L 01/12/19 06:47 Potassium 5.9 mmol/L (3.6-5.2) H 01/12/19 06:47 Chloride 90 mmol/L (98-107) L 01/12/19 06:47 Carbon Dioxide 22 mmol/L (22-30) 01/12/19 06:47 Anion Gap 21 (10-20) H 01/12/19 06:47 BUN 60 mg/dL (9-20) H 01/12/19 06:47 Creatinine 6.4 mg/dL (0.8-1.5) H 01/12/19 06:47 Est GFR ( Amer) 10 01/12/19 06:47 Est GFR (Non-Af Amer) 9 01/12/19 06:47 Random Glucose 154 mg/dL (75-110) H 01/12/19 06:47 Calcium 8.6 mg/dl (8.6-10.4) 01/12/19 06:47 Phosphorus 5.7 mg/dL (2.5-4.5) H 01/12/19 06:47 Total Bilirubin 0.5 mg/dL (0.2-1.3) 01/12/19 06:47 AST 26 U/L (17-59) 01/12/19 06:47 ALT 28 U/L (21-72) 01/12/19 06:47 Alkaline Phosphatase 114 U/L (38-126) 01/12/19 06:47 Total Protein 6.3 g/dL (6.3-8.3) 01/12/19 06:47 Albumin 3.6 g/dL (3.5-5.0) 01/12/19 06:47 Globulin 2.7 gm/dL (2.2-3.9) 01/12/19 06:47 Albumin/Globulin Ratio 1.3 (1.0-2.1) 01/12/19 06:47 Discharge Exam - Head Exam Head Exam: ATRAUMATIC, NORMOCEPHALIC Discharge Plan - Discharge Medications Prescriptions: RX: Gentamicin 80mg/50ml NS 80 mg IV MWF 14 Days bag RX: Vancomycin [Vancomycin Inj] 1 gm IVPB MWF 14 Days vial - Follow Up Plan Condition: STABLE Disposition: HOME/ ROUTINE
--- NOTE | 2019-01-12 15:56 | CP.PCM.PN ---
Subjective - Date & Time of Evaluation Date of Evaluation: 01/12/19 Time of Evaluation: 15:52 - Subjective Subjective: Podiatry Consult Note: Dr. Stein 73 year old male was evaluated 4 days s/p right Achilles tendon wound debridement. He is AAOx3 and NAD at time of visit. Denies of having any pain today. Denies any further pedal complaints. Denies any recent N/V/F/C/CP/SOB/D. Objective - Vital Signs/Intake and Output Vital Signs (last 24 hours): Temp Pulse Resp BP Pulse Ox 97.2 F L 84 16 129/89 100 01/12/19 12:20 01/12/19 12:20 01/12/19 12:20 01/12/19 12:20 01/12/19 12:20 Intake and Output: 01/12/19 01/12/19 06:59 18:59 Intake Total 530 Balance 530 - Medications Medications: Current Medications Acetaminophen (Tylenol 325mg Tab) 325 mg PO Q6 PRN PRN Reason: Pain, Mild (1-3) Albuterol/Ipratropium (Duoneb 3 Mg/0.5 Mg (3 Ml) Ud) 3 ml INH RQ6 [facility] Last Admin: 01/12/19 13:29 Dose: 3 ml Apixaban (Eliquis) 2.5 mg PO BID [facility] Last Admin: 01/12/19 10:04 Dose: Not Given Calcium Acetate (Phoslo) 667 mg PO TID [facility] Last Admin: 01/12/19 13:26 Dose: 667 mg Carvedilol (Coreg) 3.125 mg PO PRN PRN PRN Reason: see below Last Admin: 01/08/19 06:30 Dose: 3.125 mg Cinacalcet (Sensipar) 60 mg PO DAILY [facility] Last Admin: 01/12/19 10:05 Dose: Not Given Ciprofloxacin (Cipro) 500 mg PO DAILY [facility]; Protocol Last Admin: 01/12/19 13:28 Dose: 500 mg Epoetin Nav (Procrit) 10,000 unit IV MWF [facility] Last Admin: 01/12/19 10:31 Dose: 10,000 unit Finasteride (Proscar) 5 mg PO DAILY [facility] Last Admin: 01/12/19 13:25 Dose: 5 mg Gabapentin (Neurontin) 100 mg PO TID [facility] Last Admin: 01/12/19 13:26 Dose: 100 mg Guaifenesin (Robitussin) 100 mg PO Q8 PRN PRN Reason: Cough Vancomycin HCl 1 gm/ Sodium (Chloride) 250 mls @ 166.7 mls/hr IVPB MWF [facility]; Protocol Last Admin: 01/12/19 14:15 Dose: 166.7 mls/hr Gentamicin Sulfate/Sodium Chloride (Gentamicin 80mg/100ml Ns) 80 mg in 100 mls @ 100 mls/hr IVPB MWF [facility]; Protocol Last Admin: 01/12/19 13:27 Dose: 100 mls/hr Lactulose (Enulose) 20 gm PO DAILY [facility] Last Admin: 01/12/19 10:04 Dose: Not Given Paricalcitol (Zemplar) 4 mcg IV MWF [facility] Last Admin: 01/12/19 10:32 Dose: 4 mcg Vitamin B Complex/Vit C/Folic Acid (Nephro-Vivian) 1 tab PO DAILY [facility] Last Admin: 01/12/19 10:04 Dose: Not Given - Labs Labs: 01/12/19 06:47 01/12/19 06:47 PT 14.3 SECONDS (9.7-12.2) H 01/08/19 05:37 INR 1.3 01/08/19 05:37 APTT 39 SECONDS (21-34) H 01/08/19 05:37 - Constitutional Appears: Well, Non-toxic, No Acute Distress - Extremities Exam Additional comments: Lower Extremity Focused Exam Vasc: DP/PT pulses faintly palpable 1/4 b/l. Skin temperature warm to warm from proximal to distal WNL. CFT < 3 seconds to all digits b/l. Minimal, diffuse edema noted to b/l lower extremities Neuro: Epicritic and protective sensation grossly intact b/l Derm: RIGHT- Ulceration #1: 4 cm x 3 cm x 0.3 cm ulceration noted to lateral lower leg. Wound base is granular in nature. No erythema, malodor, drainage, tracking, tunneling or undermining. No evidence of infection appreciated. Ulceration #2 and #3: approximately 1 cm x 1 cm x 0.1 cm ulcerations noted along length of achilles tendon, wound bed granular, No erythema, malodor, drainage, tracking, tunneling or undermining. No evidence of infection appreciated LEFT- dressing clean, dry and intact, no strike through noted MSK: Pain on palpation to all ulceration sites. Diffuse pain to b/l LE R>L. No gross deformities appreciated - Neurological Exam Neurological Exam: Alert, Awake, Oriented x3 - Psychiatric Exam Psychiatric exam: Normal Affect, Normal Mood Assessment and Plan - Assessment and Plan (Free Text) Assessment: 73 year old male evaluated 4 days s/p right Achilles tendon wound debridement Plan: Patient seen and evaluated Discussed plan with Dr. Stein Afebrile, absent leukocytosis B/l ankle xrays: Right ankle - Deep ulcer without adjacent underlying radiographic evidence of acute osteomyelitis. Left ankle - Soft tissue swelling without acute articular or osseous abnormality. Bone scan: No evidence of OM Infectious disease consult - recommendations appreciated Vascular consult, recs appreciated Pre-op wound culture from lateral right leg taken: Pseudomonas Aeruginosa; Corynebacterium Intra-op wound culture: Serratia Marcescens Multipodus boots to be worn in bed at all times Stable from podiatry standpoint Podiatry will continue to follow while patient in house
[2019-01-12 15:58] VITALS: BP 120/77; PULSE 87; RESP 20; TEMP 98.4
--- NOTE | 2019-01-13 01:10 | PN ---
DATE: 01/12/2019 FOLLOWUP RENAL CONSULTATION LOCATION: The patient is located in room 368, bed A. REQUESTED BY: Luis Manuel Staton MD REASON FOR FOLLOWUP: End-stage renal disease, continuation of hemodialysis three times a week on Saturday, Saturday and Saturday, bilateral leg ulcers and status post debridement of the right Achilles tendon ulcer and necrosis. SUBJECTIVE: Mr. Pandey is a 73-year-old elderly male with a past medical history significant for longstanding hypertension, diabetes, AFib, coronary artery disease, status post stent placement, cardiomyopathy, status post AICD, end-stage renal disease, on hemodialysis three times a week on Saturday, Saturday and Saturday with bilateral leg ulcers, status post debridement about two weeks ago in [facility] who was sent from the alf by podiatry specialist, Dr. Stein, for a nonhealing right Achilles tendon ulcer and necrosis. The patient was admitted for debridement. The patient underwent debridement last . The patient is not in acute distress. The wound culture is positive for Pseudomonas. No chest pain. No palpitation. No fever. No cough. No abdominal pain. No nausea, vomiting, or diarrhea. The patient was seen and examined during dialysis, had ultrafiltration about 3.2 L. PHYSICAL EXAMINATION: VITAL SIGNS: As follows: Blood pressure 136/85, pulse 86, respirations 16, temperature 97.2, saturation 100%. Weight 70.2 kg, post-dialysis weight, ultrafiltration about 3.2 L. Height 5 feet 9 inches, and weight is 159 pounds. GENERAL: Mr. Pandey is a 73-year-old elderly male, moderately built, moderately nourished, not in acute distress. HEENT: Pupils are normal and reactive to light and accommodation. Conjunctivae pink. Sclerae anicteric. Tongue is moist and trachea is midline. LUNGS: Symmetric on both sides. Bilateral breath sounds present. Clear to auscultation. CARDIOVASCULAR SYSTEM: [place]eer at the fifth intercostal space, midclavicular line. S1 and S2 audible. No murmur. No gallop. ABDOMEN: Normal in appearance. Soft, tympanitic. No guarding. No rigidity. No hepatosplenomegaly. CENTRAL NERVOUS SYSTEM: The patient is alert, awake, oriented x3. Nonfocal neuro examination. Cranial nerves II through XII grossly intact. Sensory and motor system is within normal limits. EXTREMITIES: No cyanosis, no clubbing. The patient has a trace edema in both lower extremities, and also the patient has a dressing to the both legs, status post debridement of the right Achilles tendon. CURRENT MEDICATIONS: Include as follows: Tylenol, DuoNeb inhaler, Eliquis on hold, PhosLo 667 mg p.o. t.i.d., Coreg 3.125 mg p.o. p.r.n., Sensipar 60 mg p.o. daily, Cipro 500 mg daily, Procrit 10,000 units three times a week, Proscar 5 mg p.o. daily, gabapentin 100 mg p.o. t.i.d., Robitussin 100 mg p.o. every 8 hours, vancomycin 1 g three times a week on Saturday, Saturday and Saturday, gentamicin 80 mg three times a day on Saturday, Saturday and Saturday, lactulose, Zemplar 4 mcg three times a week, and Nephro-Vivian one tablet daily. LABORATORY DATA: Include as follows: As of 01/12/2019, WBC 5.9, hemoglobin 10.3, hematocrit is 32.9, and platelets of 145. Sodium 127, potassium is 5.9, chloride 90, CO2 of 22, BUN 60, creatinine 6.4, glucose 154. His wound cultures positive for Pseudomonas aeruginosa and also Serratia marcescens. Blood culture x2 negative day-5. ASSESSMENT AND PLAN: In summary, Mr. Pandey is a 73-year-old elderly male with a history of longstanding hypertension, diabetes, atrial fibrillation, cardiomyopathy, coronary artery disease, status post stent placement, automatic implantable cardioverter-defibrillator, end-stage renal disease, on hemodialysis three times a week, nonhealing bilateral leg ulcers who was admitted for necrotic right Achilles tendon for debridement, status post debridement on last week. Seen in dialysis. 1. End-stage renal disease. Continue hemodialysis three times a week on Saturday, Saturday and Saturday. 2. Hyperkalemia secondary to renal failure, noncompliance with diet. 3. Anemia, secondary to renal failure. 4. Diabetes. 5. Cardiomyopathy. 6. Bilateral leg ulcers, status post debridement of the right Achilles tendon. Continue intravenous antibiotics as per Infectious Disease recommendation and also as per Dr. Staton of vancomycin, gentamicin and Cipro. Antibiotics were told to continue for a total of five weeks as per Dr. Packer's recommendation on 01/10/2019, and a bone scan report as of 01/08/2019, findings consistent with cellulitis particularly both right Achilles and right ankle, no evidence of osteomyelitis. The patient is stable from the renal standpoint for possible transfer back to subacute rehabilitation. We will follow with you. Thank you for allowing me to participate in your patient's care. Stable hemodialysis treatment today. Gomez Vu MD
[2019-01-13] MEDS ORDERED: Epoetin Alfa 10,000 unit/ml Dialysis SC SCH (09:00)
[2019-01-14] MEDS ORDERED: Epoetin Alfa 10,000 unit/ml Dialysis IV SCH (09:00)
== END 2019-01-12 18:16 | DRG 299 ==
LOC: C.ER 15:48 → C.3T 18:34
PROVIDERS: ADMIT Internal Medicine; ATTEND Internal Medicine
PROC: 5A1D70Z Performance of Urinary Filtration, Intermittent, Less than 6 Hours Per Day (ICD-10-PCS; 2019-01-07)
PROC: 0HBMXZZ Excision of Right Foot Skin, External Approach (ICD-10-PCS; principal; 2019-01-08 07:30)
DX: E11.52 Type 2 diabetes mellitus with diabetic peripheral angiopathy with gangrene (principal); N18.6 End stage renal disease; I13.2 Hypertensive heart and chronic kidney disease with heart failure and with stage 5 chronic kidney disease, or end stage renal disease; I42.9 Cardiomyopathy, unspecified; L03.116 Cellulitis of left lower limb; L03.115 Cellulitis of right lower limb; L97.319 Non-pressure chronic ulcer of right ankle with unspecified severity; I96 Gangrene, not elsewhere classified; N25.81 Secondary hyperparathyroidism of renal origin; E11.622 Type 2 diabetes mellitus with other skin ulcer; L89.509 Pressure ulcer of unspecified ankle, unspecified stage; Z99.2 Dependence on renal dialysis; E11.22 Type 2 diabetes mellitus with diabetic chronic kidney disease; I50.9 Heart failure, unspecified; I48.0 Paroxysmal atrial fibrillation; I25.10 Atherosclerotic heart disease of native coronary artery without angina pectoris; Z91.11 Patient's noncompliance with dietary regimen; Z95.5 Presence of coronary angioplasty implant and graft; Z87.891 Personal history of nicotine dependence